=== PATIENT | male | born 1970 | race Caucasian/White ===

== ENCOUNTER 2023-04-02 10:22 | Outpatient (OUT) | payer OTHER, SELFPAY ==
[2023-04-02 11:18] LABS: Basophils Percent Auto 0.6 % (0.2-2.0); Eosinophils Absolute Auto 0.1 10^3/uL (0.0-0.7); Hemoglobin 15.5 g/dL (14.0-18.0); Immature Granulocytes Abs Auto 0.01 10^3/uL (0.00-0.03); Immature Granulocytes Pct Auto 0.2 % (0.0-0.5); Lymphocytes Percent Auto 21.4 % (20.5-60.0); Mean Corpuscular HGB Conc 34.4 g/dL (29.9-35.2); Mean Corpuscular Hemoglobin 33.3 pg (25.9-34.0); Mean Corpuscular Volume 96.6 fL (80.0-94.0); Monocytes Absolute Auto 0.4 10^3/uL (0.3-0.8); Monocytes Percent Auto 7.5 % (1.7-12.0); Neutrophils Absolute Auto 3.3 10^3/uL (1.4-6.5); Neutrophils Percent Auto 69.3 % (43.0-75.0); Platelet Count 223 10^3/uL (150-450); Red Blood Count 4.66 10^6/uL (4.70-6.10); Red Cell Distribution Width 12.5 % (11.0-15.0); White Blood Count 4.8 10^3/uL (4.0-11.0)
[2023-04-02 11:19] LABS: Estimated Average Glucose 100 mg/dL; Glycohemoglobin A1C 5.1 % (4.5-6.2)
[2023-04-02 11:32] LABS: Alanine Aminotransferase 31 U/L (16-63); Albumin Globulin Ratio 1.1; Alkaline Phosphatase 54 U/L (46-116); Anion Gap 10.8; Aspartate Amino Transferase 23 U/L (15-37); BUN Creatinine Ratio 16.7; Bilirubin Total 0.5 mg/dL (0.2-1.0); Calcium 9.2 mg/dL (8.5-10.1); Carbon Dioxide 27.9 mmol/L (21.0-32.0); Chloride 101 mmol/L (98-107); Chol HDL Ratio 4.2; Cholesterol 231 mg/dL (<=200); Estimated GFR (African America >60 (>=60); Estimated GFR (Non-African Ame >60 (>=60); Globulin 3.8 g/dL; Glucose 98 mg/dL (74-106); HDL Cholesterol 55 mg/dL (40-60); Potassium 3.7 mmol/L (3.5-5.1); Sodium 136 mmol/L (136-145); Total Protein 7.8 g/dL (6.4-8.2); Triglycerides 71 mg/dL (<=150); VLDL CHOLESTEROL 14.2 mg/dL
[2023-04-03 04:11] LABS: DHEA-Sulfate 42.9 ug/dL (71.6-375.4); Estradiol 9.5 pg/mL (7.6-42.6); Vitamin B12 278 pg/mL (232-1245)
[2023-04-06 10:08] LABS: Free Testosterone(Direct) 7.1 pg/mL (7.2-24.0); Testosterone 966 ng/dL (264-916)
== END 2023-04-02 10:23 | disposition home or self-care (01) ==
LOC: LAB 10:29
PROVIDERS: PCP Internal Medicine
DX: F41.9 Anxiety disorder, unspecified (principal); R63.5 Abnormal weight gain; R53.83 Other fatigue; R68.82 Decreased libido; M25.50 Pain in unspecified joint; Z12.5 Encounter for screening for malignant neoplasm of prostate; L65.9 Nonscarring hair loss, unspecified; E78.5 Hyperlipidemia, unspecified; R41.3 Other amnesia; E55.9 Vitamin D deficiency, unspecified; R68.89 Other general symptoms and signs
CPT/HCPCS: 36415; 80053; 80061; 82306; 82607; 82627; 82670; 83036; 84402; 84403; 85025

== ENCOUNTER 2024-11-03 18:59 | Emergency (ER) | payer OTHER, SELFPAY ==
[2024-11-03 19:03] VITALS: BP 210/100; PULSE 87; TEMP 36.7; O2SAT 98; BMI 31.2
--- NOTE | 2024-11-03 19:18 | CT_ITS ---
The [address] [address] Patient Name: MAYRA FINN MRN: [id number] date: 1970 Sex: M Assigned Patient Location: ER Current Patient Location: Accession/Order Number: [id number] Exam Date: 11/03/2024 19:42 Report Date: 11/03/2024 21:10 At the request of: REGAN EVANS Procedure: CT abdomen pelvis w con EXAM: CT abdomen pelvis w con REASON FOR EXAM: Male, 54 years, Diarrhea, blood in stool. TECHNIQUE: Computed tomography of the abdomen and pelvis is performed in the axial projection from the lung bases to the pubic symphysis. Sagittal and coronal reconstructed images are performed. Dose reduction techniques were achieved by using automated exposure control and/or adjustment of mA and/or KVP according to patient size and/or use of iterative reconstruction technique. A total of 100 mL Omnipaque 300 IV contrast was given. Study was performed without oral contrast. COMPARISON: None. FINDINGS: Lung bases: The lung bases are clear. There is no pleural effusion. The visualized portions of the heart are unremarkable. Liver: The liver is normal. Gallbladder: The gallbladder is contracted. Spleen: The spleen is normal. Pancreas: The pancreas is normal. Adrenal glands: The adrenal glands are normal bilaterally. Right kidney: The kidney is normal in size. There is no renal calculus or hydronephrosis. Left kidney: The kidney is normal in size. There is no renal calculus or hydronephrosis. Stomach: The stomach is normal. Small bowel: The small bowel is normal. Large bowel: There are colon diverticula, without surrounding inflammatory changes. There appears to be some liquid stool within the rectum, consistent with history of diarrhea. Appendix: The appendix is visualized, and is normal. Aorta: There are mild atherosclerotic calcifications of the abdominal aorta. IVC: The IVC is normal. Retroperitoneum: Normal retroperitoneum. Bladder: The bladder is normal. Pelvic organs: Normal prostate gland. Abdominal wall: Normal abdominal wall. 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 There are degenerative changes within the spine. CT/CT abdomen pelvis w con IMPRESSION: No bowel obstruction or acute renal pathology. Diverticulosis, without acute diverticulitis. Additional findings, as described above. Electronically authenticated by: ILIANA LEVY Date: 11/03/2024 21:10
[2024-11-03 19:20] VITALS: BP 170/94
--- NOTE | 2024-11-03 19:20 | ED.GENADUL1 ---
HPI HPI - General Adult General Chief complaint: Abdominal Pain Stated complaint: BLOOD IN STOOL Time Seen by Provider: 11/03/24 19:18 Source: patient Mode of arrival: walk-in Limitations: no limitations History of Present Illness HPI narrative: Patient is a 54-year-old male who presents to the emergency department for evaluation of multiple episodes of diarrhea for the last several hours associated with bright red blood mixed with his stool. He states he can feel his stomach churning but he does not have any abdominal pain, fevers or vomiting. He states he had similar episode about a month ago which resolved and he states the bleeding was not as severe. He is not anticoagulated. The bleeding is limited to his bowel movements, he has not had any other active bleeding per rectum. Related Data Home Medications ?Medication ?Instructions ?Recorded ?Confirmed clobetasol 0.05 % topical cream 1 applic topical DAILY 11/03/24 11/03/24 Previous Rx's ?Medication ?Instructions ?Recorded hyoscyamine sulfate 0.125 mg 0.125 mg PO Q6H PRN abdominal pain 11/03/24 tablet (Levsin) #12 tabs ondansetron 4 mg disintegrating 4 mg PO Q6H PRN nausea and 11/03/24 tablet vomiting #12 tabs Allergies Allergy/AdvReac Type Severity Reaction Status Date / Time No Known Drug Allergies Allergy Verified 11/03/24 19:06 Opioid HPI Opioid Management Most Recent Opioid Data: No Data to Display Review of Systems ROS Constitutional Denies: fever or chills Ears, nose, mouth, and throat Denies: throat pain or nasal congestion Cardiovascular Denies: chest pain Respiratory Denies: shortness of breath or cough Gastrointestinal Reports: diarrhea and blood in stool; Denies: abdominal pain, nausea or vomiting Musculoskeletal Denies: back pain Integumentary/Breast Denies: rash Neurological Denies: numbness in extremities or weakness in extremities Hematologic/Lymphatic Denies: easy bruising or easy bleeding PFSH PFSH Social History Little interest or pleasure in doing things: not at all Feeling down, depressed, or hopeless: not at all Exam Narrative Exam Narrative: Gen.: Awake, alert, in no distress Head: Normocephalic, atraumatic ENT: Moist mucous membranes Respiratory: No respiratory distress Gastrointestinal: Abdomen is soft, nondistended and nontender to palpation, rectal exam performed with Marivel Etienne RN at bedside throughout the duration of the exam. No active bleeding per rectum, no hemorrhoids noted. Extremities: Moves extremities equally Psych: Normal mood and affect Neuro: No focal neuro deficit Skin: Warm, dry, intact Constitutional Vital Signs, click to edit/add: Last Vital Signs Temp 98.1 F 11/03/24 19:03 Pulse 87 11/03/24 19:03 Resp 16 11/03/24 19:03 BP 170/94 H 11/03/24 19:20 Pulse Ox 98 11/03/24 19:03 Course Vital Signs Vital signs: Vital Signs Temperature 98.1 F 11/03/24 19:03 Pulse Rate 87 11/03/24 19:03 Respiratory Rate 16 11/03/24 19:03 Blood Pressure 210/100 H 11/03/24 19:03 Pulse Oximetry 98 11/03/24 19:03 Temperature 98.1 F 11/03/24 19:03 Pulse Rate 87 11/03/24 19:03 Respiratory Rate 16 11/03/24 19:03 Blood Pressure 170/94 H 11/03/24 19:20 Pulse Oximetry 98 11/03/24 19:03 Medical Decision Making MDM Narrative Medical decision making narrative: Rectal exam with no evidence of active bleeding per rectum, patient did provide a stool specimen which was maroon-colored, sent for a stool culture. Labs show no evidence of infection or anemia. Abdomen is soft and benign with no complaints of abdominal pain in the ER. CT shows the patient has diverticulosis with no acute diverticulitis or other acute abnormalities. He will be discharged home with Zofran and Levsin as needed and encouraged to follow-up with general surgery for colonoscopy as needed. He is hemodynamically stable with no massive hemorrhage per rectum in the ER. Return to the ER if symptoms change or worsen. SHARED APC VISIT, PHYSICIAN ATTESTATION: [id number] I performed a substantive part of the MDM during the patient?s E/M visit. I personally evaluated and examined the patient. I personally made or approved the documented management plan and acknowledge its risk of complications. Medical Records Medical records reviewed: Yes I reviewed the patient's medical records Lab Data Lab results reviewed: Yes I reviewed the patient's lab results Labs: Lab Results 02/04/2011/03/24 11/03/24 Range/Units 19:35 19:55 20:15 WBC 5.5 (4.0-11.0) 10^3/uL RBC 4.69 L (4.70-6.10) 10^6/uL Hgb 15.8 (14.0-18.0) g/dL Hct 44.8 (42.0-54.0) % MCV 95.5 H (80.0-94.0) fL MCH 33.7 (25.9-34.0) pg MCHC 35.3 H (29.9-35.2) g/dL RDW 11.8 (11.0-15.0) % Plt Count 180 (150-450) 10^3/uL MPV 11.3 (9.5-13.5) fL Neut % (Auto) 64.5 (43.0-75.0) % Lymph % (Auto) 25.6 (20.5-60.0) % [place] % (Auto) 7.9 (1.7-12.0) % Eos % (Auto) 1.1 (0.9-7.0) % Baso % (Auto) 0.7 (0.2-2.0) % Neut # (Auto) 3.5 (1.4-6.5) 10^3/uL Lymph # (Auto) 1.4 (1.2-3.8) 10^3/uL [place] # (Auto) 0.4 (0.3-0.8) 10^3/uL Eos # (Auto) 0.1 (0.0-0.7) 10^3/uL Baso # (Auto) 0.0 (0.0-0.1) 10^3/uL Abs Immat Gran (auto) 0.01 (0.00-0.03) 10^3/uL Imm/Tot Granulo (auto) 0.2 (0.0-0.5) % Sodium 138 (136-145) mmol/L Potassium 4.3 (3.5-5.1) mmol/L Chloride 101 (98-107) mmol/L Carbon Dioxide 29.2 (21.0-32.0) mmol/L Anion Gap 12.1 BUN 16.0 (7.0-18.0) mg/dL Creatinine 1.02 (0.70-1.30) mg/dL Est GFR ( Amer) >60 (>=60 mL/min/1.73m^2) Est GFR (Non-Af Amer) >60 (>=60 mL/min/1.73m^2) BUN/Creatinine Ratio 15.7 Glucose 102 (74-106) mg/dL Lactate 0.9 (0.4-2.0) mmol/L Calcium 8.8 (8.5-10.1) mg/dL Total Bilirubin 0.5 (0.2-1.0) mg/dL AST 26 (15-37) U/L ALT 24 (16-63) U/L Alkaline Phosphatase 66 (46-116) U/L Total Protein 7.3 (6.4-8.2) g/dL Albumin 3.5 (3.4-5.0) g/dL Globulin 3.8 g/dL Albumin/Globulin Ratio 0.9 Urine Color Lt. yellow (YELLOW) Urine Clarity Clear (CLEAR) Urine pH 7.0 (5.0-9.0) Ur Specific [place] 1.010 (1.005-1.025) Urine Protein Negative (NEG/TRACE) mg/dL Urine Glucose (UA) Negative (NEGATIVE) mg/dL Urine Ketones Negative (NEGATIVE) mg/dL Urine Occult Blood Negative (NEGATIVE) Urine Nitrite Negative (NEGATIVE) Urine Bilirubin Negative (NEGATIVE) Urine Urobilinogen 0.2 (0.2-1.0) EU/dL Ur Leukocyte Esterase Negative (NEGATIVE) Urine RBC None seen (0-2) #/HPF Urine WBC 0-2 A (NONE SEEN) #/HPF Ur Squamous Epith Cells Rare (NONE/RARE) #/LPF Urine Crystals None seen (None Seen) #/HPF Urine Bacteria Trace A (NONE SEEN) #/HPF Urine Casts None seen (NONE SEEN) #/LPF Urine Mucus None seen (NONE SEEN) Stool Occult Blood Positive A Imaging Data CT scan - abdomen: Attestation: I have reviewed the pertinent imaging results. Radiologist's impression: ITS Impressions Abdomen/Pelvis CT 11/03/24 19:18 IMPRESSION: No bowel obstruction or acute renal pathology. Diverticulosis, without acute diverticulitis. Additional findings, as described above. Electronically authenticated by: ILIANA LEVY Date: 11/03/2024 21:10 Discharge Plan Discharge Chief Complaint: Abdominal Pain Clinical Impression: Rectal bleeding, Diarrhea Patient Disposition: Home, Self-Care Time of Disposition Decision: 21:17 Condition: Good Prescriptions / Home Meds: New hyoscyamine sulfate [Levsin] 0.125 mg tablet 0.125 mg PO Q6H PRN (Reason: abdominal pain) Qty: 12 0RF ondansetron 4 mg tablet,disintegrating 4 mg PO Q6H PRN (Reason: nausea and vomiting) Qty: 12 0RF No Action clobetasol 0.05 % cream 1 applic TOPICAL DAILY Print Language: Khmer Instructions: Rectal Bleeding (ED), Acute Diarrhea (ED) Referrals: Sarwat Way DO [Primary Care Provider] - 1 week Ronny Bates MD [Physician] - As soon as possible Ronny Elaine MD [Physician] - As soon as possible
[2024-11-03 19:42] LABS: Basophils Percent Auto 0.7 % (0.2-2.0); Eosinophils Absolute Auto 0.1 10^3/uL (0.0-0.7); Eosinophils Percent Auto 1.1 % (0.9-7.0); Hematocrit 44.8 % (42.0-54.0); Hemoglobin 15.8 g/dL (14.0-18.0); Immature Granulocytes Abs Auto 0.01 10^3/uL (0.00-0.03); Immature Granulocytes Pct Auto 0.2 % (0.0-0.5); Lymphocytes Absolute Auto 1.4 10^3/uL (1.2-3.8); Lymphocytes Percent Auto 25.6 % (20.5-60.0); Mean Corpuscular HGB Conc 35.3 g/dL (29.9-35.2); Mean Corpuscular Hemoglobin 33.7 pg (25.9-34.0); Mean Corpuscular Volume 95.5 fL (80.0-94.0); Mean Platelet Volume 11.3 fL (9.5-13.5); Monocytes Absolute Auto 0.4 10^3/uL (0.3-0.8); Monocytes Percent Auto 7.9 % (1.7-12.0); Neutrophils Absolute Auto 3.5 10^3/uL (1.4-6.5); Neutrophils Percent Auto 64.5 % (43.0-75.0); Platelet Count 180 10^3/uL (150-450); Red Blood Count 4.69 10^6/uL (4.70-6.10); Red Cell Distribution Width 11.8 % (11.0-15.0); White Blood Count 5.5 10^3/uL (4.0-11.0)
[2024-11-03 20:15] LABS: Alanine Aminotransferase 24 U/L (16-63); Albumin Globulin Ratio 0.9; Albumin Level 3.5 g/dL (3.4-5.0); Alkaline Phosphatase 66 U/L (46-116); Anion Gap 12.1; Aspartate Amino Transferase 26 U/L (15-37); BUN Creatinine Ratio 15.7; Bilirubin Total 0.5 mg/dL (0.2-1.0); Calcium 8.8 mg/dL (8.5-10.1); Carbon Dioxide 29.2 mmol/L (21.0-32.0); Chloride 101 mmol/L (98-107); Estimated GFR (African America >60 (>=60 mL/min/1.73m^2); Estimated GFR (Non-African Ame >60 (>=60 mL/min/1.73m^2); Globulin 3.8 g/dL; Glucose 102 mg/dL (74-106); Potassium 4.3 mmol/L (3.5-5.1); Sodium 138 mmol/L (136-145); Total Protein 7.3 g/dL (6.4-8.2)
[2024-11-03 20:20] LABS: Internal Control Within Normal Limits; Occult Blood Positive
[2024-11-03 20:27] LABS: Bilirubin Urine NEGATIVE (NEGATIVE); Blood Urine NEGATIVE (NEGATIVE); Clarity Urine CLEAR (CLEAR); Color Urine LT. YELLOW (YELLOW); Glucose Urine UA NEGATIVE (NEGATIVE); Ketones Urine NEGATIVE (NEGATIVE); Leukocyte Esterase Urine NEGATIVE (NEGATIVE); Nitrite Urine NEGATIVE (NEGATIVE); Protein Urine NEGATIVE (NEG/TRACE); Urobilinogen Urine 0.2 EU/dL (0.2-1.0)
[2024-11-03 20:37] LABS: Lactate/Lactic Acid 0.9 mmol/L (0.4-2.0)
[2024-11-03 20:43] LABS: Bacteria Urine TRACE #/HPF (NONE SEEN); Cast Seen? NONE SEEN #/LPF (NONE SEEN); Crystals Seen? None Seen #/HPF (None Seen); Mucus Urine NONE SEEN (NONE SEEN); RBC Urine NONE SEEN #/HPF (0-2); Squamous Epithelial Cell Urine RARE #/LPF (NONE/RARE); WBC Urine 0-2 #/HPF (NONE SEEN)
[2024-11-03 21:35] VITALS: BP 154/76; PULSE 77; O2SAT 97
[2024-11-04 08:53] LABS: C. Difficile PCR NEGATIVE
== END 2024-11-03 21:38 | disposition home or self-care (01) ==
PROVIDERS: Physician Assistant; Emergency Provider Emergency Medicine; PCP Internal Medicine
DX: K62.5 Hemorrhage of anus and rectum (principal); R19.7 Diarrhea, unspecified; K57.90 Diverticulosis of intestine, part unspecified, without perforation or abscess without bleeding
CPT/HCPCS: 36415; 74177; 80053; 81001; 83605; 85025; 87045; 87046; 87427; 87493; 99285; G0328; Q9967

== ENCOUNTER 2025-02-02 17:04 | Emergency (ER) | payer OTHER, SELFPAY ==
[2025-02-02 17:05] VITALS: BP 152/88; PULSE 96; TEMP 36.8; O2SAT 98; BMI 34.4
--- OUTSIDE RECORDS SUMMARY | 2025-02-02 17:11 | XMS_ITS | CCD ---
Author Organization [facility] Care Team Providers Care Sample Clerk Name Role Phone Sarwat Way Primary Care Provider Tanner Brown Unavailable [phone] SEAMUS, DR FAM Consulting Unavailable SEAMUS, DR FAM Primary Care Unavailable SEAMUS, DR FAM Admitting Unavailable SEAMUS, DR FAM Referring Unavailable BALL, DR FAM Attending Unavailable SEAMUS, DR FAM Consulting Unavailable SEAMUS, DR FAM Primary Care Unavailable SEAMUS, DR FAM Admitting Unavailable SEAMUS, DR FAM Attending Unavailable TILA, DR KARSTEN San Consulting Unavailable SEAMUS, DR FAM Primary Care Unavailable SEAMUS, DR FAM Admitting Unavailable SEAMUS, DR FAM Attending Unavailable SEAMUS, DR FAM Consulting Unavailable SEAMUS, DR FAM Primary Care Unavailable TRAVIS SOSA Admitting Unavailable TILA, DR KARSTEN San Consulting Unavailable TRAVIS SOSA Attending Unavailable SHEILA, TRAVIS Wallace Consulting Unavailable Seamus, Sarwat Unavailable Shalonda Glaser Unavailable Sarwat Way DO Primary Care Provider Iván Mcnulty MD Attending Provider Iván Mcnulty Attending Unavailable Iván Mcnulty Admitting Unavailable Sarwat Way Primary Care Unavailable Seamus, Sarwat Admitting Unavailable Seamus, Sarwat Attending Unavailable Seamus, Sarwat Primary Care Unavailable Medications Current Medications Medication Drug Class(es) Dates Sig (Normalized) Sig (Original) anastrozole 1 mg oral tablet (2 sources) Aromatase Inhibitor Start: 11-23-2024 take 1 tablet by mouth once Anastrozole 1 mg tablet Active 1 MG PO .week November 23, 2024 1:00am clobetasol propionate 0.5 mg/ml topical cream (17 sources) Corticosteroid Start: 03-21-2024 Clobetasol 0.05 % cream Active 0 .ROUTE .COMPLEX 60 March 21, 2024 8:38am APPLY 1 APPLICATION TOPICALLY TO AFFECTED AREA TWICE A DAY Start: 03-21-2024 End: 03-21-2024 Clobetasol 0.05 % cream Disc ontinued 1 APPLIC TOPICAL Twice daily March 21, 2024 12:00am March 21, 2024 8:38am Start: 02-12-2020 clobetasol (TE MOVATE) 0.05 % cream Apply 1 application to affected area twice daily as needed. APPLY TO AFFECTED AREA 0 02/12/2020 Active Clobetasol Propi jimmie 0.05 % 1 application Externally Twice a day Active Comment on above: Apply 1 application to affected area twice daily as needed. APPLY TO AFFECTED AREA dicyclomine hydrochloride 20 mg oral tablet (1 source) Anticholinergic Start: 2024 take 1 tablet by mouth three times daily Dicyclomine 20 mg tablet Active 20 MG PO Three times daily 90 January 25, 2025 12:00am predniSONE 20 mg oral tablet (1 source) Start: 2023 predniSONE 20 MG 1 tablet Orally tid w/ food x 3 days, then bid w/ food x 3 days then qd w/ food x 3 days for 9 days Oct, Active testosterone cypionate 100 mg/ml injectable solution (3 sources) Androgen Start: 2024 inject 1 mL by intramuscular injection once Testosterone Cypionate 100 mg/mL oil Active 100 MG IM .week November 23, 2024 1:00am FreeTextSi mL Intramuscular; Note: Source Status: Taking; Provider: Seamus Fam ( ) Testosterone Cyp ionate 100 MG/ML 1 mL Intramuscular Active Completed/Discontinued Medications Medication Drug Class(es) Dates Sig (Normalized) Sig (Original) acetaminophen 325 mg / HYDROcodone bitartrate 5 mg oral tablet (2 sources) Opioid Agonist Start: 12-13-2019 take 1 tablet by mouth every six hours as needed for pain, then take 4 tablets by mouth once daily as needed for pain HYDROcodone-aceta minophen (NORCO) 5-325 mg per tablet TAKE 1 TABLET BY MOUTH EVERY 6 HOURS NEEDED FOR PAIN *MAX 4 TABLETS PER DAY* 0 12/13/2019 Active Comment on above: TAKE 1 TABLET BY KAMLESH EVERY 6 HOURS NEEDED FOR PAIN *MAX 4 TABLETS PER DAY* ALPRAZolam 0.5 mg oral tablet (2 sources) Benzodiazepine Start: 02-18-2011 ALPRAZolam (XANAX) 0.5 mg ORAL tablet Take 1 tablet by mouth as needed. 0 02/18/2011 Active Comment on above: Take 1 tablet by kamlesh th as needed. apixaban 5 mg oral tablet (2 sources) Factor Xa Inhibitor Start: 10-12-2020 take 1 tablet by mouth twice daily ELIQUIS 5 mg tab(s) Take 5 mg by mouth twice daily. 0 10/12/2020 Active Comment on above: Take 5 mg by mouth t wice daily. calcium/mag/vitamin D2/Zn/min (XUAN-MAG ZINC II ORAL) (2 sources) take 1 capsule by mouth once daily calcium/mag/vitam in D2/Zn/min (XUAN-MAG ZINC II ORAL) Take 1 capsule by mouth once daily. 0 Active Comment on above: Take 1 capsule by mo uth once daily. celecoxib 200 mg oral capsule (2 sources) Nonsteroidal Anti-inflammatory Drug Start: 12-05-2019 celecoxib (CELEBREX) 200 mg capsule TAKE 1 TABLET BY MOUTH EVENING PRIOR TO OPERATION, 1 TABLET MORNING OF OPERATION, THEN 1 TWICE DAILY 0 12/05/2019 Active Comment on above: TAKE 1 TABLET BY KAMLESH TH EVENING PRIOR TO OPERATION, 1 TABLET MORNING OF OPERATION, THEN 1 TWICE DAILY cholecalciferol, vitamin D3, (VITAMIN D3 ORAL) (2 sources) take 1 capsule by mouth once daily cholecalciferol, vitamin D3, (VITAMIN D3 ORAL) Take 1 capsule by mouth once daily. 0 Active Comment on above: Take 1 capsule by mo uth once daily. COMPOUNDED PRESCRIPTION (2 sources) Start: 10-07-2007 Comment on above: Unknown steroid crea m for psoriasis used up to twice daily FISH OIL-DHA-EPA ORAL (2 sources) take 1 capsule by mouth once daily FISH OIL-DHA-EPA ORAL Take 1 capsule by mouth once daily. 0 Active Comment on above: Take 1 capsule by mo uth once daily. Garlic preparation (2 sources) Non-Standardized Food Allergenic Extract take 1 capsule by mouth once daily GARLIC ORAL Take 1 capsule by mouth once daily. 0 Active Comment on above: Take 1 capsule by mo uth once daily. KELP ORAL (2 sources) take 1 capsule by mouth once daily KELP ORAL Take 1 capsule by mouth once daily. 0 Active Comment on above: Take 1 capsule by mo uth once daily. metoprolol tartrate 25 mg oral tablet (2 sources) beta-Adrenergic Mary Start: 10-12-2020 take 1 tablet by mouth twice daily at mealtime metoprolol tartrate, short acting, (LOPRESSOR) 25 mg tablet Take 25 mg by mouth twice daily with meals. 0 10/12/2020 Active Comment on above: Take 25 mg by mouth twice daily with meals. XVAOQOQF-UDCV-YVE-F A-LUTEIN 18 MG-0.4 MG-250 MCG TAB (2 sources) Start: 10-07-2007 RMAARIMF-VDCU-CNP -FA-LUTEIN 18 MG-0.4 MG-250 MCG TAB Take one(1) tablet daily. 0 10/07/2007 Active Comment on above: Take one(1) tablet d aily. telmisartan 20 mg oral tablet (2 sources) Angiotensin 2 Receptor Mary Start: 11-13-2024 End: 11-23-2024 take 1 tablet by mouth once daily Telmisartan 20 mg tablet Discontinued 20 MG PO Daily November 13, 2024 1:00am November 23, 2024 9:00am triamcinolone acetonide 40 mg/ml injectable suspension (7 sources) Corticosteroid Start: 03-10-2023 Kenalog-40 Feb, 60 mg Start: 11-17-2022 Kenalog-40 Oct, 40 mg Start: 10-07-2007 triamcinolone acetonide(KENALOG-40 INJECTION 40 MG/ML SUSP FOR INJECTION) Approximately every month 0 10/07/2007 Active Comment on above: Approximately every month Problems Active Problems Problem Classification Problem Date Documented Da te Episodic/Chronic Anxiety disorders (2 sources) Generalized anxiety disorder; Translations: [Generalized anxiety disorder] Onset: 03-08-2017 Chronic Biliary tract disease (10 sources) Biliary calculus; Translations: [Calculus of gallbladder without cholecystitis without obstruction] Onset: 09-27-2020 08-13-2024 Episodic Cardiac dysrhythmias (20 sources) Other specified cardiac arrhythmias; Translations: [Paroxysmal tachycardia] Onset: 10-07-2007 10-07-2007 Chronic Disorders of lipid metabolism (13 sources) Pure hypercholesterolemia; Translations: [Familial hypercholesterolemia] Onset: 03-08-2017 08-13-2024 Chronic Essential hypertension (8 sources) Essential hypertension; Translations: [Essential (primary) hypertension] Onset: 01-03-2014 Resolved: 10-15-2020 11-01-2020 Chronic Gastrointestinal hemorrhage (11 sources) Rectal hemorrhage; Translations: [Hemorrhage of anus and rectum] Onset: 12-07-2024 11-11-2024 Episodic Hyperplasia of prostate (4 sources) Benign prostatic hyperplasia; Translations: [Benign prostatic hyperplasia without lower urinary tract symptoms] Chronic Other acquired deformities (3 sources) Acquired spondylolisthesis; Translations: [Spondylolysis, lumbar region] Episodic Other connective tissue disease (3 sources) Weakness of left hand; Translations: [Other symptoms and signs involving the musculoskeletal system] 08-15-2024 Episodic Other diseases of veins and lymphatics (3 sources) Scrotal varices; Translations: [Scrotal varices] Episodic Other diseases of veins and lymphatics (1 source) Varicocele; Translations: [Scrotal varices] Episodic Other fractures (1 source) Fatigue fracture of vertebra, lumbar region, initial encounter for fracture; Translations: [Fatigue fracture of vertebra, lumbar region, initial encounter for fracture] Episodic Other gastrointestinal disorders (1 source) Irritable bowel syndrome; Translations: [Irritable bowel syndrome without diarrhea] 01-25-2025 Chronic Other gastrointestinal disorders (1 source) Irritable bowel syndrome without diarrhea; Translations: [Irritable bowel syndrome] 01-25-2025 Chronic Other gastrointestinal disorders (2 sources) Altered bowel function; Translations: [Other specified symptoms and signs involving the digestive system and abdomen] 11-13-2024 Episodic Other inflammatory condition of skin (3 sources) Plaque psoriasis; 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] Chronic Other inflammatory condition of skin (1 source) Psoriasis vulgaris; 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] Chronic Other inflammatory condition of skin (1 source) Psoriasis; Translations: [Psoriasis, unspecified] Onset: 12-17-2015 Chronic Other nervous system disorders (2 sources) Carpal tunnel syndrome; Translations: [Carpal tunnel syndrome, bilateral upper limbs] 11-13-2024 Chronic Other nervous system disorders (2 sources) Carpal tunnel syndrome, bilateral upper limbs; Translations: [Carpal tunnel syndrome] 11-13-2024 Chronic Other non-traumatic joint disorders (1 source) Pain in right hip Episodic Other nutritional; endocrine; and metabolic disorders (6 sources) Obesity; Translations: [Obesity, unspecified] 11-13-2024 Chronic Other nutritional; endocrine; and metabolic disorders (1 source) Obese class I; Translations: [Body mass index 33.0-33.9, adult] Onset: 03-08-2017 Chronic Other nutritional; endocrine; and metabolic disorders (1 source) Body mass index 30+ - obesity; Translations: [Body mass index 30.0-30.9, adult] Onset: 03-08-2017 Chronic Other nutritional; endocrine; and metabolic disorders (1 source) Simple obesity ; Translations: [Other obesity due to excess calories] Chronic Other nutritional; endocrine; and metabolic disorders (2 sources) Obesity, unspecified; Translations: [Obesity, unspecified] 11-13-2024 Chronic Other nutritional; endocrine; and metabolic disorders (3 sources) Obese class I; Translations: [Obesity, Class I, BMI 30-34.9] Onset: 03-13-2020 03-13-2020 Other screening for suspected conditions (not mental disorders or infectious disease) (10 sources) Encounter for screening for malignant neoplasm of prostate; Translations: [Raised prostate specific antigen] Onset: 04-08-2022 08-13-2024 Episodic Comment on above: PSA: 0.74 - 03/2022, PSA: 0.74 - 03/2022, 1.4 - 07/2024 Other upper respiratory disease (10 sources) Allergic rhinitis due to pollen; Translations: [Allergic rhinitis due to pollen] 04-13-2024 Chronic Other upper respiratory disease (2 sources) Allergic rhinitis due to pollen Chronic Other upper respiratory disease (1 source) Allergic rhinitis; Translations: [Allergic rhinitis, unspecified] Onset: 05-27-2015 Chronic Other upper respiratory disease (1 source) Seasonal allergic rhinitis; Translations: [Other seasonal allergic rhinitis] Onset: 03-01-2018 Chronic Spondylosis; intervertebral disc disorders; other back problems (10 sources) Lumbar spondylosis with myelopathy; Translations: [Other spondylosis with myelopathy, lumbar region] 08-13-2024 Chronic Spondylosis; intervertebral disc disorders; other back problems (3 sources) Low back pain; Translations: [Low back pain, unspecified] Episodic Viral infection (6 sources) Other specified viral infection; Translations: [Herpes zoster with complication] Onset: 10-16-2020 11-01-2020 Episodic Past or Other Problems Problem Classification Problem Date Documented Date Episodic/Chronic Abdominal pain (1 source) Right upper quadrant pain; Translations: [Right upper quadrant pain] Resolved: 10-15-2020 Episodic Cardiac dysrhythmias (2 sources) Palpitations; Translations: [Palpitations] Onset: 03-13-2020 03-13-2020 Episodic E Codes: Struck by; against (1 source) Striking against or struck by other objects, initial encounter; Translations: [STRIKING AGNST/STRUCK OTH OBJ INIT] Onset: 09-23-2021 Episodic Immunizations and screening for infectious disease (4 sources) Contact with and (suspected) exposure to other viral communicable diseases; Translations: [CONTCT EXPS OTH VIRL COMMUNICABL DZ] Onset: 05-26-2021 Episodic Intestinal infection (1 source) Viral infection of the digestive tract; Translations: [Viral intestinal infection, unspecified] Resolved: 10-15-2020 Episodic Other connective tissue disease (3 sources) Pain in left lower leg; Translations: [PAIN IN LEFT LOWER LEG] Onset: 09-22-2021 Episodic Other connective tissue disease (2 sources) Other symptoms and signs involving the musculoskeletal system; Translations: [Muscle weakness (generalized)] Onset: 09-06-2024 08-15-2024 Episodic Other lower respiratory disease (1 source) Cough; Translations: [Cough] Onset: 01-03-2014 Episodic Other male genital disorders (4 sources) Other specified disorders of the male genital organs; Translations: [OTHER SPEC D/O MALE GENITAL ORGANS] Onset: 07-14-2021 Episodic Other male genital disorders (1 source) Disorder of male genital organ; Translations: [Other specified disorders of the male genital organs] Resolved: 04-07-2022 Episodic Other non-traumatic joint disorders (1 source) Pain in right hip joint; Translations: [Pain in right hip] Onset: 10-24-2018 Episodic Skin and subcutaneous tissue infections (1 source) Boil of lower limb; Translations: [Carbuncle and furuncle of leg, except foot] Onset: 10-01-2015 Episodic Sprains and strains (1 source) Neck sprain; Translations: [Neck sprain and strain] Onset: 11-27-2014 Episodic Superficial injury; contusion (1 source) Contusion of left lower leg, initial encounter; Translations: [CONTUSION LEFT LOWER LEG INITIAL] Onset: 09-23-2021 Episodic Unclassified (3 sources) Low back pain with radiation; Translations: [Low back pain with radiation] Varicose veins of lower extremity (2 sources) Varicose veins of lower extremity; Translations: [Varicose veins of lower extremities with other complications] Onset: 04-24-2011 04-24-2011 Episodic Viral infection (1 source) Disease caused by 2019-nCoV; Translations: [COVID-19] Resolved: 04-07-2022 Results Test Name Value Interpretation Reference Range Facility Amphetamine Screen Ql (U)Ord ered By: Iván Mcnulty on 12-07-2024 Amphetamines Ql (U) Amphetamines screen Negativ e [facility] Barbiturates [Presence] in U rine by Screen methodOrdered By: Iván Mcnulty on 12-07-2024 Barbiturates Screen Ql (U) Barbiturates [Presence] in Urine by Screen method Negative [facility] Benzodiazepines Screen Ql (U )Ordered By: Iván Mcnulty on 12-07-2024 Benzodiazepines Ql (U) Benzodiazepines [Presence] in Urine by Screen method Negative [facility] Benzoylecgonine [Presence] i n Urine by Screen methodOrdered By: Iván Mcnulty on 12-07-2024 Benzoylecgonine Screen Ql (U) Benzoylecgonine [Presence] in Urine by Screen method Negative [facility] Cannabinoids [Presence] in U rine by Screen methodOrdered By: Iván Mcnulty on 12-07-2024 Cannabinoids Screen Ql (U) Cannabinoids [Presence] in Urine by Screen method High Negative [facility] Comment on above: These are unconfirme d results and should not be used for legal purposes. Drug Cut-Off Concentration: AMPH 1000 ng/mL VIK 200 ng/mL PAULA 200 ng/mL COCM 300 ng/mL OP 300 ng/mL PCP 25 ng/mL THC 20 ng/mL Drug Screen,Urineon 12-08-19 Amphetamine Screen,Urine Negative Normal Negative [facility] Comment on above: Performed By: #### U RDS #### [address] Barbiturate Screen,Urine Negative Normal Negative [facility] Comment on above: Performed By: #### U RDS #### [address] Benzodiazepines Screen,Urine Negative Normal Negative [facility] Comment on above: Performed By: #### U RDS #### [address] Cannabinoid Screen,Urine Positive High Negative [facility] Comment on above: Result Comment: Thes e are unconfirmed results and should not be used for legal purposes. Drug Cut-Off Concentration: AMPH 1000 ng/mL VIK 200 ng/mL PAULA 200 ng/mL COCM 300 ng/mL OP 300 ng/mL PCP 25 ng/mL THC 20 ng/mL PERFORMED BY: [place] [address] PATHOLOGIST [employer] PEGGY CABAN M.D. Performed By: #### U RDS #### [address] Cocaine Screen,Urine Negative Normal Negative [facility] Comment on above: Performed By: #### U RDS #### [address] Opiate Screen,Urine Negative Normal Negative [facility] Comment on above: Performed By: #### U RDS #### [address] Phencyclidine Screen,Urine Negative Normal Negative [facility] Comment on above: Performed By: #### U RDS #### [address] Opiates [Presence] in Urine by Screen methodOrdered By: Iván Mcnulty on 12-07-2024 Opiates Screen Ql (U) Opiates [Presence] in Urine by Screen method Negative [facility] Phencyclidine Screen Ql (U)O rdered By: Iván Mcnulty on 12-07-2024 Phencyclidine Ql (U) Phencyclidine [Presence] in Urine by Screen method Negative [facility] Basophils Auto (Bld) [#/Vol] on 11-03-2024 Basophils (Bld) [#/Vol] Automated basophil count 0.0-0.1 [facility] Basophils/100 WBC Auto (Bld) on 11-03-2024 Basophils/100 WBC (Bld) Automated basophil % 0.2-2.0 [facility] Eosinophils/100 WBC Auto (Bl d)on 11-03-2024 Eosinophils/100 WBC (Bld) Automated eosinophil % 0.9-7.0 [facility] Erythrocyte distribution wid th Auto (RBC) [Ratio]on 11-03-2024 Erythrocyte distribution width (RBC) [Ratio] Erythrocyte distribution width [Ratio] by Automated count 11.0-15.0 [facility] Estimated glomerular filtrat ion rate (GFR) non- Americanon 11-03-2024 GFR/1.73 sq M.predicted among non-blacks MDRD (S/P/Bld) [Vol rate/Area] Estimated glomerular filtration rate (GFR) non- >=60 mL/min/1.73m 2 [facility] Globulin Calc (S) [Mass/Vol] on 11-03-2024 Globulin (S) [Mass/Vol] Serum globulin measurement by calculation (mass/volume) [facility] Hematocrit Auto (Bld) [Volum e fraction]on 11-03-2024 Hematocrit (Bld) [Volume fraction] Hematocrit [Volume Fraction] of Blood by Automated count 42.0-54.0 [facility] Hemoglobin [Mass/volume] in Bloodon 11-03-2024 Hemoglobin (Bld) [Mass/Vol] Hemoglobin [Mass/volume] in Blood 14.0-18.0 [facility] Hemoglobin.gastrointestinal [Presence] in Stoolon 11-03-2024 Hemoglobin.gastroint estinal Ql (Stl) Hemoglobin.gastrointes tinal [Presence] in Stool Abnormal [facility] Laboratory - Chemistry and C hemistry - challengeon 11-03-2024 Bilirubin Ql (U) Negative NEGATIVE [facility] Glucose (U) [Mass/Vol] Negative NEGATIVE [facility] Ketones Ql (U) Negative NEGATIVE [facility] pH (U) 7.0 [pH] 5.0-9.0 [facility] Specific gravity (U) [Rel density] 1.010 1.005-1.025 [facility] Urobilinogen Qn (U) 0.2 {Laura'U}/dL 0.2-1.0 [facility] Lactate [Moles/Vol] 0.9 mmol/L 0.4-2.0 [facility] Albumin [Mass/Vol] 3.5 g/dL 3.4-5.0 [facility] ALP [Catalytic activity/Vol] 66 U/L 46-116 [facility] ALT [Catalytic activity/Vol] 24 U/L 16-63 [facility] AST [Catalytic activity/Vol] 26 U/L 15-37 [facility] Bilirubin [Mass/Vol] 0.5 mg/dL 0.2-1.0 [facility] Calcium [Mass/Vol] 8.8 mg/dL 8.5-10.1 [facility] Chloride [Moles/Vol] 101 mmol/L 98-107 [facility] CO2 [Moles/Vol] 29.2 mmol/L 21.0-32.0 [facility] Creatinine [Mass/Vol] 1.02 mg/dL 0.70-1.30 [facility] GFR/1.73 sq M.predicted MDRD (S/P/Bld) [Vol rate/Area] mL/min/{1.73_m2} >=60 mL/min/1.73m 2 [facility] Glucose [Mass/Vol] 102 mg/dL 74-106 [facility] Potassium [Moles/Vol] 4.3 mmol/L 3.5-5.1 [facility] Protein [Mass/Vol] 7.3 g/dL 6.4-8.2 [facility] Sodium [Moles/Vol] 138 mmol/L 136-145 [facility] Urea nitrogen [Mass/Vol] 16.0 mg/dL 7.0-18.0 [facility] Urea nitrogen/Creatinine [Mass ratio] 15.7 mg/mg [facility] Laboratory - Hematology and Cell countson 11-03-2024 Immature granulocytes/100 WBC (Bld) 0.2 % 0.0-0.5 [facility] Laboratory - Specimen inform ationon 11-03-2024 Appearance (U) CLEAR CLEAR [facility] Color (U) LT. YELLOW YELLOW [facility] Laboratory - Urinalysison Leukocyte esterase Test strip Ql (U) Negative NEGATIVE [facility] Mucus Ql (Urine sed) NONE SEEN NONE SEEN [facility] Nitrite Ql (U) Negative NEGATIVE [facility] Protein Ql (U) Negative NEG/TRACE [facility] Leukocytes [#/volume] correc alessia for nucleated erythrocytes in Blood by Automated counon 11-03-2024 WBC corrected for nucl RBC Auto (Bld) [#/Vol] Leukocytes [#/volume] corrected for nucleated erythrocytes in Blood by Automated coun 4.0-11.0 [facility] Lymphocytes Auto (Bld) [#/Vo l]on 11-03-2024 Lymphocytes (Bld) [#/Vol] Lymphocytes [#/volume] in Blood by Automated count 1.2-3.8 [facility] Lymphocytes/100 WBC Auto (Bl d)on 11-03-2024 Lymphocytes/100 WBC (Bld) Lymphocytes/100 leukocytes in Blood by Automated count 20.5-60.0 [facility] MCH Auto (RBC) [Entitic mass ]on 11-03-2024 MCH (RBC) [Entitic mass] MCH [Entitic mass] by Automated count 25.9-34.0 [facility] MCHC Auto (RBC) [Mass/Vol]on 11-03-2024 MCHC (RBC) [Mass/Vol] MCHC [Mass/volume] by Automated count High 29.9-35.2 [facility] MCV Auto (RBC) [Entitic vol] on 11-03-2024 MCV (RBC) [Entitic vol] MCV [Entitic volume] by Automated count High 80.0-94.0 [facility] Monocytes Auto (Bld) [#/Vol] on 11-03-2024 Monocytes (Bld) [#/Vol] Automated blood monocyte count 0.3-0.8 [facility] Monocytes/100 WBC Auto (Bld) on 11-03-2024 Monocytes/100 WBC (Bld) Automated monocyte % 1.7-12.0 [facility] Neutrophils Auto (Bld) [#/Vo l]on 11-03-2024 Neutrophils (Bld) [#/Vol] Neutrophils [#/volume] in Blood by Automated count 1.4-6.5 [facility] Neutrophils/100 WBC Auto (Bl d)on 11-03-2024 Neutrophils/100 WBC (Bld) Automated neutrophil % 43.0-75.0 [facility] No Panel Informationon 11-03 Urine Bacteria TRACE #/HPF Abnormal NONE SEEN [facility] Urine Occult Blood Negative NEGATIVE [facility] Urine Other Casts NONE SEEN #/LPF [facility] Other Crystals None Seen #/HPF None Seen [facility] Urine RBC NONE SEEN #/HPF 0-2 [facility] Urine Squamous Epithelial Cells RARE #/LPF NONE/RARE [facility] Urine WBC 0-2 #/HPF Abnormal NONE SEEN [facility] Eosinophils # (Auto) 0.1 10 3/uL 0.0-0.7 [facility] Immature Granulocyte # (Auto) 0.01 10 3/uL 0.00-0.03 [facility] Clostridium difficile (PCR)(LAB) Negative [facility] Platelet mean volume Auto (B ld) [Entitic vol]on 11-03-2024 Platelet mean volume (Bld) [Entitic vol] Platelet mean volume [Entitic volume] in Blood by Automated count 9.5-13.5 [facility] Platelets Auto (Bld) [#/Vol] on 11-03-2024 Platelets (Bld) [#/Vol] Platelets [#/volume] in Blood by Automated count 150-450 [facility] RBC Auto (Bld) [#/Vol]on RBC (Bld) [#/Vol] Erythrocytes [#/volume] in Blood by Automated count Low 4.70-6.10 [facility] Serum or plasma albumin/glob ulin mass ratioon 11-03-2024 Albumin/Globulin [Mass ratio] Serum or plasma albumin/globulin mass ratio [facility] Serum or plasma anion gap de terminationon 11-03-2024 Anion gap [Moles/Vol] Serum or plasma anion gap determination [facility] CBC AUTO DIFFon 04-07-2022 BASO # 0.0 103/ul Normal 0.0-0.1 [facility] Comment on above: Performed By: #### C BC #### [facility] [address] [place] [address] Dr. Marlee Faria Basophils/100 WBC (Bld) 0.5 % Normal 0.2-2.0 [facility] Comment on above: Performed By: #### C BC #### [facility] [address] [place] [address] Dr. Marlee Faria EO # 0.1 103/ul Normal 0.0-0.7 [facility] Comment on above: Performed By: #### C BC #### [facility] [address] [place] [address] Dr. Marlee Faria Eosinophils/100 WBC (Bld) 1.4 % Normal 0.9-7.0 [facility] Comment on above: Performed By: #### C BC #### [facility] [address] [place] [address] Dr. Marlee Faria Erythrocyte distribution width (RBC) [Ratio] 11.9 % Normal 11.0-15.0 [facility] Comment on above: Performed By: #### C BC #### [facility] [address] [place] [address] Dr. Marlee Faria Hematocrit (Bld) [Volume fraction] 43.3 % Normal 42.0-54.0 [facility] Comment on above: Performed By: #### C BC #### [facility] [address] [place] [address] Dr. Marlee Faria Hemoglobin (Bld) [Mass/Vol] 14.9 g/dL Normal 14.0-18.0 [facility] Comment on above: Performed By: #### C BC #### [facility] [address] [place] [address] Dr. Marlee Faria IG # 0.01 10e3/ul Normal 0.00-0.03 [facility] Comment on above: Performed By: #### C BC #### [facility] [address] [place] [address] Dr. Marlee Faria IG % 0.2 % Normal 0.0-0.5 [facility] Comment on above: Performed By: #### C BC #### [facility] [address] [place] [address] Dr. Marlee Faria LYMPH # 1.2 103/ul Normal 1.2-3.8 [facility] Comment on above: Performed By: #### C BC #### [facility] [address] [place] [address] Dr. Marlee Faria Lymphocytes/100 WBC (Bld) 28.3 % Normal 20.5-60.0 [facility] Comment on above: Performed By: #### C BC #### [facility] [address] [place] [address] Dr. Marlee Faria MANUAL DIFF REQ NO Normal [facility] Comment on above: Performed By: #### C BC #### [facility] [address] [place] [address] Dr. Marlee Faria MCH (RBC) [Entitic mass] 33.0 pg Normal 25.9-34.0 [facility] Comment on above: Performed By: #### C BC #### [facility] [address] [place] [address] Dr. Marlee Faria MCHC (RBC) [Mass/Vol] 34.4 g/dL Normal 29.9-35.2 [facility] Comment on above: Performed By: #### C BC #### [facility] [address] [place] [address] Dr. Marlee Faria MCV (RBC) [Entitic vol] 96.0 fL Critically high 80.0-94.0 [facility] Comment on above: Performed By: #### C BC #### [facility] [address] [place] [address] Dr. Marlee Faria MONO # 0.4 103/ul Normal 0.3-0.8 [facility] Comment on above: Performed By: #### C BC #### [facility] [address] [place] [address] Dr. Marlee Faria Monocytes/100 WBC (Bld) 9.4 % Normal 1.7-12.0 [facility] Comment on above: Performed By: #### C BC #### [facility] [address] [address] [address] Marlee Faria NEUT # 2.5 103/ul Normal 1.4-6.5 [facility] Comment on above: Performed By: #### C BC #### [facility] [address] [address] [address] Marlee Faria Neutrophils/100 WBC (Bld) 60.2 % Normal 43.0-75.0 [facility] Comment on above: Performed By: #### C BC #### [facility] [address] [address] [address] Marlee Faria Platelet mean volume (Bld) [Entitic vol] 10.3 fL Normal 9.5-13.5 [facility] Comment on above: Performed By: #### C BC #### [facility] [address] [place] [address] Dr. Marlee Faria PLT 205 103/ul Normal 150-450 [facility] Comment on above: Performed By: #### C BC #### [facility] [address] [address] [address] Marlee Faria RBC 4.51 106/ul Critically low 4.70-6.10 [facility] Comment on above: Performed By: #### C BC #### [facility] [address] [place] [address] Dr. Marlee Faria WBC 4.2 103/ul Normal 4.0-11.0 [facility] Comment on above: Performed By: #### C BC #### [facility] [address] [place] [address] Dr. Marlee Faria LIPID PROFILEon 04-07-2022 CHOL-HDL RATIO NORM SEE BELOW Normal [facility] Comment on above: Result Comment: 3.3 - 4.4 LOW RISK 4.4 - 7.1 AVERAGE RISK 7.1 - 11.0 MODERATE RISK >11.0 HIGH RISK Performed By: #### L IPID, CMP #### [facility] [address] [place] [address] Dr. Marlee Faria Cholesterol [Mass/Vol] 232 mg/dL Critically high <=200 [facility] Comment on above: Performed By: #### L IPID, CMP #### [facility] [address] [address] [address] Marlee Faria Cholesterol in HDL [Mass/Vol] 46 mg/dL Normal 40-60 [facility] Comment on above: Performed By: #### L IPID, CMP #### [facility] [address] [address] [address] Marlee Faria Cholesterol in LDL [Mass/Vol] 168.8 mg/dL Normal [facility] Comment on above: Performed By: #### L IPID, CMP #### [facility] [address] [address] [address] Marlee Faria Cholesterol.total/Ch olesterol in HDL [Mass ratio] 5.0 {ratio} Normal [facility] Comment on above: Performed By: #### L IPID, CMP #### [facility] [address] [address] [address] Marlee Faria HDL NORMAL > or = 60 mg/dl - LO W CARDIOVASCULAR RISK <40 mg/dl - HIGH CARDIOVASCULAR RISK Normal [facility] Comment on above: Performed By: #### L IPID, CMP #### [facility] [address] [address] [address] Marlee Faria LDL CALC NORMAL SEE BELOW Normal [facility] Comment on above: Result Comment: <100 mg/dl OPTIMAL 100 - 129 mg/dl NEAR OR ABOVE OPTIMAL 130 - 159 mg/dl BORDERLINE HIGH 160 - 189 mg/dl HIGH >190 mg/dl VERY HIGH Performed By: #### L IPID, CMP #### [facility] [address] [address] [address] Marlee Faria Triglyceride [Mass/Vol] 86 mg/dL Normal <=150 [facility] Comment on above: Performed By: #### L IPID, CMP #### [facility] [address] [address] [address] Marlee Faria VLDL CALC 17.2 mg/dL Normal [facility] Comment on above: Performed By: #### L IPID, CMP #### [facility] [address] [address] [address] Marlee Faria PROF 14(COMP METB)on 022 Albumin [Mass/Vol] 3.7 g/dL Normal 3.4-5.0 [facility] Comment on above: Performed By: #### L IPID, CMP #### [facility] [address] [place] [address] Dr. Marlee Faria Albumin/Globulin [Mass ratio] 0.8 {ratio} Normal [facility] Comment on above: Performed By: #### L IPID, CMP #### [facility] [address] [place] [address] Dr. Marlee Faria ALP [Catalytic activity/Vol] 58 U/L Normal 46-116 [facility] Comment on above: Performed By: #### L IPID, CMP #### [facility] [address] [place] [address] Dr. Marlee Faria ALT [Catalytic activity/Vol] 32 U/L Normal 16-63 [facility] Comment on above: Performed By: #### L IPID, CMP #### [facility] [address] [place] [address] Dr. Marlee Faria Anion gap [Moles/Vol] 12.1 mmol/L Normal [facility] Comment on above: Performed By: #### L IPID, CMP #### [facility] [address] [place] [address] Dr. Marlee Faria AST [Catalytic activity/Vol] 23 U/L Normal 15-37 [facility] Comment on above: Performed By: #### L IPID, CMP #### [facility] [address] [place] [address] Dr. Marlee Faria Bilirubin [Mass/Vol] 0.5 mg/dL Normal 0.2-1.0 [facility] Comment on above: Performed By: #### L IPID, CMP #### [facility] [address] [place] [address] Dr. Marlee Faria Calcium [Mass/Vol] 9.0 mg/dL Normal 8.5-10.1 [facility] Comment on above: Performed By: #### L IPID, CMP #### [facility] [address] [place] [address] Dr. Marlee Faria Chloride [Moles/Vol] 104 mmol/L Normal 98-107 [facility] Comment on above: Performed By: #### L IPID, CMP #### [facility] [address] [place] [address] Dr. Marlee Faria CO2 [Moles/Vol] 27.1 mmol/L Normal 21.0-32.0 [facility] Comment on above: Performed By: #### L IPID, CMP #### [facility] [address] [place] [address] Dr. Marlee Faria Creatinine [Mass/Vol] 0.86 mg/dL Normal 0.70-1.30 [facility] Comment on above: Performed By: #### L IPID, CMP #### [facility] [address] [place] [address] Dr. Marlee Faria EGFR-AF ZIMBABWEAN >60 Normal >=60 [facility] Comment on above: Performed By: #### L IPID, CMP #### [facility] [address] [place] [address] Dr. Marlee Faria EGFR-NON AF ZIMBABWEAN >60 Normal >=60 [facility] Comment on above: Performed By: #### L IPID, CMP #### [facility] [address] [place] [address] Dr. Marlee Faria Globulin (S) [Mass/Vol] 4.5 g/dL Normal [facility] Comment on above: Performed By: #### L IPID, CMP #### [facility] [address] [place] [address] Dr. Marlee Faria Glucose [Mass/Vol] 94 mg/dL Normal 74-106 [facility] Comment on above: Performed By: #### L IPID, CMP #### [facility] [address] [place] [address] Dr. Marlee Faria Potassium [Moles/Vol] 4.2 mmol/L Normal 3.5-5.1 [facility] Comment on above: Performed By: #### L IPID, CMP #### [facility] [address] [place] [address] Dr. Marlee Faria Protein [Mass/Vol] 8.2 g/dL Normal 6.4-8.2 [facility] Comment on above: Performed By: #### L IPID, CMP #### [facility] [address] [place] [address] Dr. Marlee Faria Sodium [Moles/Vol] 139 mmol/L Normal 136-145 [facility] Comment on above: Performed By: #### L IPID, CMP #### [facility] [address] [place] [address] Dr. Marlee Faria Urea nitrogen [Mass/Vol] 16.0 mg/dL Normal 7.0-18.0 [facility] Comment on above: Performed By: #### L IPID, CMP #### [facility] [address] [place] [address] Dr. Marlee Faria Urea nitrogen/Creatinine [Mass ratio] 18.6 mg/mg Normal [facility] Comment on above: Performed By: #### L IPID, CMP #### [facility] [address] [place] [address] Dr. Marlee Faria US SCROTUMon 07-14-2021 US SCROTUM EXAMINATION: US SCROTUM HISTORY: Disorder of male genital organ COMPARISON: No relevant comparison available. TECHNIQUE: High-resolution sonographic imaging of the scrotum and contents was performed. FINDINGS: The right testicle is normal in size, contour and homogeneous echotexture measuring 5.4 x 2.2 x 3.5 cm. No focal intratesticular mass. Normal color and Doppler flow. PSV/EDV: 3.9/1.5 cm/s. Normal resistive index of 0.60. The right epididymis is normal in appearance measuring 10 mm. The left testicle is normal in size, contour and homogeneous echotexture measuring 4.8 x 2.4 x 3.5 cm. No focal intratesticular mass. Normal color and Doppler flow. PSV/EDV: 3.6/2.0 cm/s. The left epididymis is normal in appearance measuring 8.3 mm. There is a very small right hydrocele. Small right varicocele. Moderate left varicocele IMPRESSION: No evidence of testicular torsion Small right and moderate left varicoceles Very small right hydrocele Electronically authenticated by: KARSTEN ADORNO Date: 2021-07-14 17:37 Normal The [facility] Covid-19 PCR ([facility])on 04-29 SARS-CoV-2 (COVID-19) RNA ABHI+probe Ql (Unsp spec) Not detected Normal NOT DETECTED The [facility] Comment on above: Result Comment: This test is not yet approved or cleared by the [place] FDA. When there are no FDA-approved or cleared tests available, and other criteria are met, FDA can make tests available under an emergency access mechanism called an Emergency Use Authorization (EUA). The EUA for this test is supported by the Insulating Machine Operator of Health and Human Service's (HHS's) declaration that circumstances exist to justify the emergency use of in vitro diagnostics for the detection and/or diagnosis of the virus that causes COVID-19. This EUA will remain in effect (meaning this test can be used) for the duration of the COVID-19 declaration justifying emergency of IVDs, unless it is terminated or revoked by FDA (after which the test may no longer be used). When diagnostic testing is negative, the possibility of a false negative should be considered in the context of a patient's recent exposures and the presence of clinical signs and symptoms consistent with SARS-CoV-2. Performed By: #### C VDTB, CVDAGS #### [facility] [address] [place] [address] Mauro Chau SYMPTOMATIC COVID-19 ANTIGEN on 05-26-2021 EUA Statement SEE BELOW Normal [facility] Comment on above: Result Comment: This test has not been FDA cleared or approved, but has been authorized by the FDA under an Emergency Use Authorization (EUA) for use by authorized laboratories certified under CLIA that meet the requirements to perform moderate or high complexity testing. This test has been authorized only for the detection of proteins from SARS-CoV-2, not for any other viruses or pathogens. The emergency use of this test is authorized for the duration of the declaration that circumstances exist justifying the authorization of emergency use of in vitro diagnostic tests for detection and/or diagnosis of Covid-19 under section 564(b)(1) of the Act, 21 U.S.C. 360bbb-3(b)(1), unless the declaration is terminated or authorization is revoked sooner. Performed By: #### C VDTBH, CVDAGS #### [facility] [address] [address] Mauro Chau SARS-CoV-2 (COVID-19) RNA ABHI+probe Ql (Unsp spec) Negative Normal NEGATIVE The [facility] Comment on above: Result Comment: CONF IRMATION BY PCR PENDING PER CDC GUIDELINES/ SYMPTOMATIC PATIENT. Performed By: #### C VDTBH, CVDAGS #### [facility] [address] [address] Mauro Chau Rosalia 11-01-2020 CNPN Telephone (AGCARDPOB ) MAYRA RHOADES ([id number]) 1970 M Date Time Provider Department 11/01/20 TANNER BROWN AGCNOA During your visit today, we recorded the following information about you: Tanner Brown MD 11/01/2020 10:55 PM Signed Please let Mr. Rhoades know that the echocardiogram testing showed no significant abnormalities, looked good. Tanner Brown MD November 01, 2020 10:54 PM Skylar Pierce RN 11/04/2020 8:47 AM Signed Patient notified of test results, he verbalized understanding. Skylar Pierce RN Allergies As of Date: 11/01/2020 (No Known Allergies) Date Reviewed: 03/13/2020 Reviewed by: Hayley Crisostomo - Fully Assessed Reason for Visit: Results [95] Prescriptions as of 11/01/2020 Sig: ELIQUIS 5 MG TABLET Take 5 mg by mouth twice beth* METOPROLOL TARTRATE 25 MG TAB* Take 25 mg by mouth twice radha* CLOBETASOL 0.05 % TOPICAL CRE* Apply 1 application to affect* FISH OIL-DHA-EPA ORAL Take 1 capsule by mouth once * GARLIC ORAL Take 1 capsule by mouth once * KELP ORAL Take 1 capsule by mouth once * VITAMIN D3 ORAL Take 1 capsule by mouth once * XUAN-MAG ZINC II ORAL Take 1 capsule by mouth once * CELECOXIB 200 MG CAPSULE TAKE 1 TABLET BY MOUTH EVENIN* HYDROCODONE 5 MG-ACETAMINOPHE* TAKE 1 TABLET BY MOUTH EVERY * ALPRAZOLAM 0.5 MG TABLET Take 1 tablet by mouth as nee* KENALOG-40 INJECTION 40 MG/ML* Approximately every month COMPOUNDED PRESCRIPTION Unknown steroid cream for pso* [id number] UTEIN 1* Take one(1) tablet daily. Problem List As Of Date 11/01/2020 Noted Resolved PREMATURE VENTRICULAR CONTRACTIONS (PVCs): symp*10/07/2007 PAROXYSMAL SUPRAVENTRICULAR TACHYCARDIA: adenos*10/07/2007 Varicose veins of lower extremities with other *04/24/2011 Obesity, Class I, BMI 30-34.9 [E66.9] 03/13/2020 Premature ventricular contractions (PVCs) (VPCs* Palpitations [R00.2] 03/13/2020 Essential (primary) hypertension [I10] 10/16/2020 COVID-19 [U07.1] 10/16/2020 Encounter Status:Closed by TANNER BROWN MD on 11/01/20 [facility] Otheron 11-01-2020 [facility] CNCOon 03-27-[address] [facility] CNPDenise 03-27-2020 CNPN Telephone (AGCARDPOB ) MAYRA RHOADES ([id number]) 1970 M Date Time Provider Department 03/27/20 TANNER BROWN AGCARDPARTH During your visit today, we recorded the following information about you: Fern Calderon 03/27/2020 9:45 AM Signed Centralized scheduling attempted to call patient twice to schedule his Echo. He did not answer or return any calls. I am sending him a letter to call in and schedule. Allergies As of Date: 03/27/2020 (No Known Allergies) Date Reviewed: 03/13/2020 [facility]ed by: [facility] Kranthi - Fully Assessed Reason for Visit: Preparations For Procedures [899] Cmt: Echo Prescriptions as of 03/27/2020 Sig: CLOBETASOL 0.05 % TOPICAL CRE* Apply 1 application to affect* FISH OIL-DHA-EPA ORAL Take 1 capsule by mouth once * GARLIC ORAL Take 1 capsule by mouth once * KELP ORAL Take 1 capsule by mouth once * VITAMIN D3 ORAL Take 1 capsule by mouth once * XUAN-MAG ZINC II ORAL Take 1 capsule by mouth once * CELECOXIB 200 MG CAPSULE TAKE 1 TABLET BY MOUTH EVENIN* HYDROCODONE 5 MG-ACETAMINOPHE* TAKE 1 TABLET BY MOUTH EVERY * ALPRAZOLAM 0.5 MG TABLET Take 1 tablet by mouth as nee* KENALOG-40 INJECTION 40 MG/ML* Approximately every month COMPOUNDED PRESCRIPTION Unknown steroid cream for pso* [id number] UTEIN 1* Take one(1) tablet daily. Problem List As Of Date 03/27/2020 Noted Resolved PREMATURE VENTRICULAR CONTRACTIONS (PVCs): symp*10/07/2007 PAROXYSMAL SUPRAVENTRICULAR TACHYCARDIA: adenos*10/07/2007 Varicose veins of lower extremities with other *04/24/2011 Obesity, Class I, BMI 30-34.9 [E66.9] 03/13/2020 Premature ventricular contractions (PVCs) (VPCs* Palpitations [R00.2] 03/13/2020 Encounter Status:Closed by FERN CALDERON on 03/27/20 [facility] Gilda 03-13-2020 CNOV Office Visit (AGCARDPOB) MAYRA RHOADES ([id number]) 1970 M Date Time Provider Department 03/13/20 2:00 PM TANNER BROWN During your visit today, we recorded the following information about you: Pulse Blood pressure Weight Height 86/minute 132/70 108.9 kg 1.829 m Hayley Crisostomo CMA 03/13/2020 1:26 PM Signed No cardiac complaints today. FRANCES Hurst MD 03/13/2020 4:51 PM Signed PRIMARY CARE PHYSICIAN: Sarwat Way MD ([facility]) [address] [place] [address] REFERRING PHYSICIAN: Sarwat Way MD ([facility]) [address] [facility] [address] Patient Care Team: Sarwat Way as PCP - General (Internal Medicine) CHIEF COMPLAINT: Establish care again for palpitations, arrhythmia HISTORY OF PRESENT ILLNESS: Mr. Rhoades is a 50 year old male who presents today to reestablish care with nc for intermittent palpitations and arrhythmia. He was diagnosed or began experiencing symptoms of arrhythmia and tachycardia in about 1999. In about 2006 he was documented to have supraventricular tachycardia (SVT) by [facility], which my previous notes describe as showing regular short RP narrow complex tachycardia 180 bpm. The SVT abruptly terminated after administration of intravenous adenosine. 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 The arrhythmia was refractory to medical therapy. In October 2007, while I was still working at [facility] in [place], I performed an EP study. This did not reveal inducible SVT, and there was no finding of an accessory pathway. Mr. Rhoades continues to experience palpitations and tachycardia. In August 2009 at [facility] I performed a repeat EP study. This revealed inducible SVT but only with isoproterenol infusion, and the tachycardia was not easily reproducibly inducible. 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 He underwent successful RF catheter ablation of the AVNRT. He had also been experiencing symptomatic PVCs, and during the EP study he was found to have frequent PVCs particularly during isoproterenol infusion. 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 This PVC was also successfully ablated at that time. Mr. Rhoades states that over the years he has done very well with regards to his arrhythmia. He has not been aware of having recurrence of the symptoms that were associated with SVT. He states that he would experience now and then some mild palpitation, such as brief double beats that he attributes to PVCs. However, on a couple of occasions, particularly when stressed by something such as an acute illness, he has experienced more bothersome palpitations. Again, this is not the prolonged rapid heartbeats that he would experience with SVT, but instead the symptoms more suggestive of the ectopic beats or PVCs. For example, he states that a couple weeks ago he experienced a febrile illness for couple of days. He was tested for COVID-19 and was negative, and he was told that he perhaps had some other type of virus. The illness was associated with diarrhea. During this time, he felt like his heart rhythm was out of whack. He experienced frequent pounding, irregular beats and this occurred over a couple of days. In hindsight he recognizes that it would have been helpful to have an EKG or some sort of monitoring performed to try to document the arrhythmia. Since that time he has felt well and has not been experiencing much of the palpitations at all. He denies chest pain, shortness of breath, orthopnea, cough, edema, PND, lightheadedness or syncope. I have confirmed and edited as necessary, the PFSH and ROS obtained by others. PAST MEDICAL HISTORY Diagnosis Date - Anxiety - History of arm fracture 2000 right elbow fracture, healed - History of kidney stones - History of seizures seizures treated with dilantin at age 10 for approx. 4 years - History of syncope - Other and unspecified hyperlipidemia - Other specified cardiac dysrhythmias(427.89) 10/07/2007 - Palpitations 03/13/2020 - Premature ventricular contractions (PVCs) (VPCs) symptomatic PVCs, refractory to medical therapy (beta-mary); noted to be from RVOT at time of EP study 08/2009 (at time of AVNRT catheter ablation); limited attempt made to ablate RVOT PVC considered successful - Psoriasis and similar disorders - Supraventricular tachycardia (HCC) symptomatic AV courtney dependent (adenosine sensitive) SVT since about 1999; refractory to medical therapy; no inducible SVT at 10/2007 EP study; +inducible SVT (AVNRT) at 08/2009 EP study, with successful RF catheter ablation - Tobacco use disorder 0.5 PPD x 10 years - now recreational / weekends PAST SURGICAL HISTORY Procedure Laterality Date - ECHOCARDIOGRAM 07/01/2009 Normal left ventricular systolic function, LVEF 60 to 65%; no significant valvular abnormalities - ELBOW SURGERY HX Right 1999 Open reduction and internal fixation of right olecranon. - EP STUDY 11/25/2007 normal study; no accessory pathway; +dual AV courtney pathways (physiologic) but no inducible SVT; [facility], Dr. Brown - EPS: SVT/VT ABLATION 09/06/2009 +inducible AVNRT with isoproterenol infusion; intermittently frequent PVCs from outflow tract; successful RF catheter ablation AVNRT (AV node slow pathway) and RVOT PVCs; [facility], Dr. Brown - INGUINAL HERNIA REPAIR HX Right 2015 - INGUINAL HERNIA REPAIR HX Left 11/2019 - KNEE ARTHROSCOPY Left 07/2008 - PAST SURGICAL HISTORY OF multiple excision of lipomas - REMOVAL ADENOIDS,PRIMARY,<14 Y/O 1977 Adenoidectomy SOCIAL HISTORY Social History Tobacco Use - Smoking status: Former Smoker Packs/day: 0.50 Years: 19.00 Pack years: 9.50 Types: Cigarettes Start date: 1989 Last attempt to quit: 06/2009 Years since quittin.7 - Smokeless tobacco: Never Used Substance Use Topics - Alcohol use: Not Currently Comment: beer once a month - Drug use: Yes Types: Marijuana Comment: marijuana occasionally - last time last year FAMILY HISTORY Problem Relation Age of Onset - Diabetes Father a. 60 diet controled - Arrythmias Father - other (atrial fibrillation) Father - Heart Maternal Grandfather pacemaker - Arthritis Mother a. 60 - Arrythmias Mother - other (varicose veins) Mother - No Known Problems Sister ALLERGIES: ALLERGIES No Known Allergies MEDICATIONS: clobetasol (TEMOVATE) 0.05 % cream, Apply 1 application to affected area twice daily as needed. APPLY TO AFFECTED AREA FISH OIL-DHA-EPA ORAL, Take 1 capsule by mouth once daily. GARLIC ORAL, Take 1 capsule by mouth once daily. KELP ORAL, Take 1 capsule by mouth once daily. cholecalciferol, vitamin D3, (VITAMIN D3 ORAL), Take 1 capsule by mouth once daily. calcium/mag/vitamin D2/Zn/min (XUAN-MAG ZINC II ORAL), Take 1 capsule by mouth once daily. triamcinolone acetonide(KENALOG-40 INJECTION 40 MG/ML SUSP FOR INJECTION), Approximately every month [id number] UTEIN 18 MG-0.4 MG-250 MCG TAB, Take one(1) tablet daily. celecoxib (CELEBREX) 200 mg capsule, TAKE 1 TABLET BY MOUTH EVENING PRIOR TO OPERATION, 1 TABLET MORNING OF OPERATION, THEN 1 TWICE DAILY HYDROcodone-acetaminop hen (NORCO) 5-325 mg per tablet, TAKE 1 TABLET BY MOUTH EVERY 6 HOURS NEEDED FOR PAIN *MAX 4 TABLETS PER DAY* ALPRAZolam (XANAX) 0.5 mg ORAL tablet, Take 1 tablet by mouth as needed. COMPOUNDED PRESCRIPTION, Unknown steroid cream for psoriasis used up to twice daily REVIEW OF SYSTEMS: Review of Systems Constitutional: Negative for chills, diaphoresis, fever, malaise/fatigue and weight loss. HENT: Negative for ear pain, hearing loss and nosebleeds. Eyes: Negative for blurred vision, double vision, photophobia and pain. Respiratory: Negative for cough, hemoptysis, sputum production, shortness of breath and wheezing. Cardiovascular: Positive for palpitations. Negative for chest pain, orthopnea, leg swelling and PND. Gastrointestinal: Negative for abdominal pain, blood in stool, constipation, diarrhea, heartburn, melena, nausea and vomiting. Genitourinary: Negative for dysuria, flank pain, frequency, hematuria and urgency. Musculoskeletal: Negative for back pain, falls, joint pain, myalgias and neck pain. Skin: Negative for rash. Neurological: Positive for dizziness. Negative for tremors, speech change, focal weakness, seizures and loss of consciousness. Endo/Heme/Allergies: Does not bruise/bleed easily. Psychiatric/Behavioral : Negative for depression, memory loss and substance abuse. The patient is not nervous/anxious. PHYSICAL EXAMINATION: BP 132/70 Pulse 86 Ht 6' 0 (1.83m) Wt 240 lb (108.9kg) SpO2 98% BMI 32.54 kg/(m2). Physical Exam CARDIOVASCULAR MEDICINE TESTING: Electrocardiogram: Sinus rhythm 77 bpm; normal conduction intervals (NH 144 ms, QRS 86 ms); no WPW patterns I have personally reviewed the Electrocardiogram. ASSESSMENT/PLAN: 1. Palpitations - ICD9: 785.1, ICD10: R00.2 (primary diagnosis) 2. PAROXYSMAL SUPRAVENTRICULAR TACHYCARDIA: adenosine sensitive, short R-P narrow complex tachycardia - ICD9: 427.2, ICD10: I47.9 3. Premature ventricular contractions (PVCs) (VPCs) - ICD9: 427.69, ICD10: I49.3 4. Obesity, Class I, BMI 30-34.9 - ICD9: 278.00, ICD10: E66.9 IMPRESSION: Mr. Rhoades experienced recurrence of palpitations that seemed to him to be consistent with what he experienced in the past with PVCs. He does have a history of PVCs and at EP study in August 2009 these were mapped to the RVOT and successfully ablated. He might be having recurrence of these PVCs or a different PVC focus. The symptoms worsen primarily during periods of acute illness or stress, and overall he has not been having much bothersome symptoms in this regard. But he was concerned about the fact that palpitations periodically worsen and wanted to be evaluated. I reassured him that the PVCs were most likely benign and not likely to be harmful. This is particularly true for PVCs in the setting of normal heart structurally. With this in mind, it would be reassuring to repeat an echocardiogram to evaluate for cardiomyopathy. At this point with near resolution of his palpitations the yield of cardiac monitoring, even over an extended period of time such as two-week patch electrode, might be low. I had a discussion with him about cardiac monitoring and we both agreed that we would wait for now before ordering such monitoring. I had a detailed discussion with Mr. Rhoades regarding my evaluation and recommendations. After our discussion, Mr. Rhoades expressed his understanding and I answered all his questions to his apparent satisfaction. PLAN AND RECOMMENDATIONS: 1) echocardiogram to evaluate ventricular function, valves (order placed) 2) consider cardiac monitoring if his symptoms return and worsen Return in about 6 months (around 09/12/2020) for appt with Dr. Brown or EILEEN CARPENTER, with EKG. Tanner Brown MD 03/13/2020 Tanner Brown MD 03/13/2020 2:52 PM Signed Heart Rhythm Problem (Arrhythmia) What is arrhythmia? Arrhythmia is an abnormal rhythm of your heartbeat. Your heart may beat faster or more slowly than normal, or it may skip beats. This can make it harder for the heart to pump enough blood to your body. Another term for arrhythmia is dysrhythmia. What is the cause? An electrical signal in your heart starts each heartbeat, causing the heart muscle to squeeze (contract). Normally, this signal starts in the upper right chamber of the heart (the right atrium) at a place called the sinus node. The signal then follows normal pathways to the upper left atrium and to the lower chambers of the heart (the ventricles). You may have an abnormal heart rhythm if the electrical signals don?t follow the normal pathways or the nerve cells that make the electrical signals don?t work right. Common causes of heart rhythm problems are conditions that damage the heart, like coronary artery disease, heart attack, or heart failure. Problems with the heart valves are another common cause. The heart has 4 valves that open and close with each heartbeat to help blood flow in the right direction through the heart. Some other causes of heart rhythm problems include: -Health problems, such as a stroke, lung disease, diabetes, overactive thyroid gland, or high blood pressure -Abuse of alcohol or drugs, such as cocaine -Some medicines, such as cold medicines -Some natural remedies, such as ephedra, guarana, and licorice Exercise or emotional stress can make your heart beat faster or skip beats, but this is usually not a cause for concern. Sometimes no cause for arrhythmia can be found. What are the different types of arrhythmia? There are many different types of arrhythmia. The heart may beat very slowly (bradycardia) or very fast (tachycardia). The abnormal rhythm may start in either the upper or the lower heart chambers. The 2 main types of arrhythmia are: -Atrial arrhythmia: The electrical signals don?t start in the normal place in the right atrium and don?t travel normally. This can cause part or all of the heart to beat very fast and not in a normal pattern. This affects the ability of the heart to pump blood to the rest of the body. -Ventricular arrhythmia: The abnormal rhythm starts in the lower chambers of the heart. The heart beats in a rhythm that may be irregular or very fast. If severe and untreated, it can be life-threatening. What are the symptoms? Some arrhythmias do not cause any symptoms, or the symptoms may come and go. Your body may simply adjust to the change in rhythm over time. When you do have symptoms, they may include: -Feeling like your heart is beating too fast or too hard or skipping beats or fluttering -Feeling dizzy or lightheaded -Fainting -Feeling tired or weak -Chest pain -Shortness of breath How is it diagnosed? Your healthcare provider will ask about your symptoms and medical history and examine your heart and lungs. Tests may include: -An ECG (also called an EKG), which measures and records your heartbeat. You may have an ECG while you are resting or while you exercise on a treadmill. You may also be asked to wear a small portable ECG monitor for a few days or sometimes a couple weeks. -Blood tests -Chest X-ray -An echocardiogram, which uses sound waves (ultrasound) to show the structures of the heart and how well the heart muscle is pumping -An angiogram, which uses dye injected into a vein and X-rays to look for narrowing or blockages of blood vessels -An electrophysiology study (EPS), which uses tiny wires put into your heart through your veins to look at the electrical pathways in your heart How is it treated? The goal of treatment is to help the heart keep a normal rhythm. The right treatment for you depends on the cause of the arrhythmia, how often you have symptoms, and the severity of your symptoms. If you have no symptoms, or your symptoms are fairly mild, you may not need treatment. If a health problem like a leaky heart valve or heart failure is causing the arrhythmia, treating the health problem may also treat the arrhythmia. Other possible treatments are: -Medicine to control the heart rate -Surgery to: ?Make small cuts or scars in the heart that will block abnormal electrical pathways (cardiac ablation) ?Put an electronic device, such as a pacemaker, under the skin in your chest to help control the heartbeat ?Improve blood flow to the heart if you have coronary artery disease (bypass surgery) How can I take care of myself? Follow your healthcare provider's instructions. Ask your provider: -How and when you will hear your test results -How long it will take to recover -What activities you should avoid and when you can return to your normal activities -How to take care of yourself at home -What symptoms or problems you should watch for and what to do if you have them Make sure you know when you should come back for a checkup. How can I help prevent arrhythmia? The best prevention is to have a heart-healthy lifestyle: -Keep a healthy weight. -Eat a healthy diet. -Stay fit with the right kind of exercise for you. -Decrease stress. -Don?t smoke. -Limit your use of alcohol. Let your healthcare provider know if you have a family history of arrhythmia. If you have heart disease or high blood pressure, follow your healthcare provider's instructions for treatment. Developed by [employer]. Published by [employer]. Copyright ?2014 [employer] and/or one of its subsidiaries. All rights reserved. Referring Provider: SARWAT WAY [[id number]] Allergies As of Date: 03/13/2020 (No Known Allergies) Date Reviewed: 03/13/2020 Reviewed by: Hayley ([facility]) Kranthi - Fully Assessed Reason for Visit: New Patient [[id number]] Cmt: re-establish care PVC'S Primary Visit Diagnosis:Palpitations [R00.2] Other Visit Diagnoses:PAROXYSMAL SUPRAVENTRICULAR TACHYCARDIA: adenosine sensitive, short R-P narrow complex tachycardia [I47.9] Premature ventricular contractions (PVCs) (VPCs) [I49.3] Obesity, Class I, BMI 30-34.9 [E66.9] Order(s):ECG B/O W INTERP (MED OFFICE) [ECG06] Order #: [id number] ECHO [[id number]] Order #: [id number]: 1 FUTURE Prescriptions as of 03/13/2020 Sig: CLOBETASOL 0.05 % TOPICAL CRE* Apply 1 application to affect* FISH OIL-DHA-EPA ORAL Take 1 capsule by mouth once * GARLIC ORAL Take 1 capsule by mouth once * KELP ORAL Take 1 capsule by mouth once * VITAMIN D3 ORAL Take 1 capsule by mouth once * XUAN-MAG ZINC II ORAL Take 1 capsule by mouth once * KENALOG-40 INJECTION 40 MG/ML* Approximately every month [id number] UTEIN 1* Take one(1) tablet daily. CELECOXIB 200 MG CAPSULE TAKE 1 TABLET BY MOUTH EVENIN* HYDROCODONE 5 MG-ACETAMINOPHE* TAKE 1 TABLET BY MOUTH EVERY * ALPRAZOLAM 0.5 MG TABLET Take 1 tablet by mouth as nee* COMPOUNDED PRESCRIPTION Unknown steroid cream for pso* Problem List As Of Date 03/13/2020 Noted Resolved PREMATURE VENTRICULAR CONTRACTIONS (PVCs): symp*10/07/2007 PAROXYSMAL SUPRAVENTRICULAR TACHYCARDIA: adenos*10/07/2007 Varicose veins of lower extremities with other *04/24/2011 Obesity, Class I, BMI 30-34.9 [E66.9] 03/13/2020 Premature ventricular contractions (PVCs) (VPCs* Palpitations [R00.2] 03/13/2020 Other instructions from your clinician: Heart Rhythm Problem (Arrhythmia) What is arrhythmia? Arrhythmia is an abnormal rhythm of your heartbeat. Your heart may beat faster or more slowly than normal, or it may skip beats. This can make it harder for the heart to pump enough blood to your body. Another term for arrhythmia is dysrhythmia. What is the cause? An electrical signal in your heart starts each heartbeat, causing the heart muscle to squeeze (contract). Normally, this signal starts in the upper right chamber of the heart (the right atrium) at a place called the sinus node. The signal then follows normal pathways to the upper left atrium and to the lower chambers of the heart (the ventricles). You may have an abnormal heart rhythm if the electrical signals don?t follow the normal pathways or the nerve cells that make the electrical signals don?t work right. Common causes of heart rhythm problems are conditions that damage the heart, like coronary artery disease, heart attack, or heart failure. Problems with the heart valves are another common cause. The heart has 4 valves that open and close with each heartbeat to help blood flow in the right direction through the heart. Some other causes of heart rhythm problems include: -Health problems, such as a stroke, lung disease, diabetes, overactive thyroid gland, or high blood pressure -Abuse of alcohol or drugs, such as cocaine -Some medicines, such as cold medicines -Some natural remedies, such as ephedra, guarana, and licorice Exercise or emotional stress can make your heart beat faster or skip beats, but this is usually not a cause for concern. Sometimes no cause for arrhythmia can be found. What are the different types of arrhythmia? There are many different types of arrhythmia. The heart may beat very slowly (bradycardia) or very fast (tachycardia). The abnormal rhythm may start in either the upper or the lower heart chambers. The 2 main types of arrhythmia are: -Atrial arrhythmia: The electrical signals don?t start in the normal place in the right atrium and don?t travel normally. This can cause part or all of the heart to beat very fast and not in a normal pattern. This affects the ability of the heart to pump blood to the rest of the body. -Ventricular arrhythmia: The abnormal rhythm starts in the lower chambers of the heart. The heart beats in a rhythm that may be irregular or very fast. If severe and untreated, it can be life-threatening. What are the symptoms? Some arrhythmias do not cause any symptoms, or the symptoms may come and go. Your body may simply adjust to the change in rhythm over time. When you do have symptoms, they may include: -Feeling like your heart is beating too fast or too hard or skipping beats or fluttering -Feeling dizzy or lightheaded -Fainting -Feeling tired or weak -Chest pain -Shortness of breath How is it diagnosed? Your healthcare provider will ask about your symptoms and medical history and examine your heart and lungs. Tests may include: -An ECG (also called an EKG), which measures and records your heartbeat. You may have an ECG while you are resting or while you exercise on a treadmill. You may also be asked to wear a small portable ECG monitor for a few days or sometimes a couple weeks. -Blood tests -Chest X-ray -An echocardiogram, which uses sound waves (ultrasound) to show the structures of the heart and how well the heart muscle is pumping -An angiogram, which uses dye injected into a vein and X-rays to look for narrowing or blockages of blood vessels -An electrophysiology study (EPS), which uses tiny wires put into your heart through your veins to look at the electrical pathways in your heart How is it treated? The goal of treatment is to help the heart keep a normal rhythm. The right treatment for you depends on the cause of the arrhythmia, how often you have symptoms, and the severity of your symptoms. If you have no symptoms, or your symptoms are fairly mild, you may not need treatment. If a health problem like a leaky heart valve or heart failure is causing the arrhythmia, treating the health problem may also treat the arrhythmia. Other possible treatments are: -Medicine to control the heart rate -Surgery to: ?Make small cuts or scars in the heart that will block abnormal electrical pathways (cardiac ablation) ?Put an electronic device, such as a pacemaker, under the skin in your chest to help control the heartbeat ?Improve blood flow to the heart if you have coronary artery disease (bypass surgery) How can I take care of myself? Follow your healthcare provider's instructions. Ask your provider: -How and when you will hear your test results -How long it will take to recover -What activities you should avoid and when you can return to your normal activities -How to take care of yourself at home -What symptoms or problems you should watch for and what to do if you have them Make sure you know when you should come back for a checkup. How can I help prevent arrhythmia? The best prevention is to have a heart-healthy lifestyle: -Keep a healthy weight. -Eat a healthy diet. -Stay fit with the right kind of exercise for you. -Decrease stress. -Don?t smoke. -Limit your use of alcohol. Let your healthcare provider know if you have a family history of arrhythmia. If you have heart disease or high blood pressure, follow your healthcare provider's instructions for treatment. Developed by [employer]. Published by [employer]. Copyright ?2014 [employer] and/or one of its subsidiaries. All rights reserved. Visit Notes: >> Hayley Crisostomo Wed Mar 13, 2020 1:13 PM Status: Signed No cardiac complaints today. Hayley Crisostomo CMA Disposition: Return in about 6 months (around 09/12/2020) for appt with Dr. Brown or EILEEN CARPENTER, with EKG. Follow-up and Disposition History Recorded Letter Text Encounter Status:Closed by TANNER BROWN MD on 03/13/20 [facility] PROGRESSon 03-13-2020 PROGRESS HNO ID: [id number] Author: Tanner Brown Service: ? Author Type: Physician Type: Progress Notes Filed: 03/13/2020 4:51 PM Note Text: PRIMARY CARE PHYSICIAN: Sarwat Way MD ([facility]) [address] [place] [address] REFERRING PHYSICIAN: Sarwat Way MD ([facility]) [address] [facility] [id number] Patient Care Team: Sarwat Way as PCP - General (Internal Medicine) CHIEF COMPLAINT: Establish care again for palpitations, arrhythmia HISTORY OF PRESENT ILLNESS: Mr. Rhoades is a 50 year old male who presents today to reestablish care with me for intermittent palpitations and arrhythmia. He was diagnosed or began experiencing symptoms of arrhythmia and tachycardia in about 1999. In about 2006 he was documented to have supraventricular tachycardia (SVT) by [facility], which my previous notes describe as showing regular short RP narrow complex tachycardia 180 bpm. The SVT abruptly terminated after administration of intravenous adenosine. 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 The arrhythmia was refractory to medical therapy. In October 2007, while I was still working at [facility] in [place], I performed an EP study. This did not reveal inducible SVT, and there was no finding of an accessory pathway. Mr. Rhoades continues to experience palpitations and tachycardia. In August 2009 at [facility] I performed a repeat EP study. This revealed inducible SVT but only with isoproterenol infusion, and the tachycardia was not easily reproducibly inducible. 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 He underwent successful RF catheter ablation of the AVNRT. He had also been experiencing symptomatic PVCs, and during the EP study he was found to have frequent PVCs particularly during isoproterenol infusion. 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 This PVC was also successfully ablated at that time. Mr. Rhoades states that over the years he has done very well with regards to his arrhythmia. He has not been aware of having recurrence of the symptoms that were associated with SVT. He states that he would experience now and then some mild palpitation, such as brief double beats that he attributes to PVCs. However, on a couple of occasions, particularly when stressed by something such as an acute illness, he has experienced more bothersome palpitations. Again, this is not the prolonged rapid heartbeats that he would experience with SVT, but instead the symptoms more suggestive of the ectopic beats or PVCs. For example, he states that a couple weeks ago he experienced a febrile illness for couple of days. He was tested for COVID-19 and was negative, and he was told that he perhaps had some other type of virus. The illness was associated with diarrhea. During this time, he felt like his heart rhythm was out of whack. He experienced frequent pounding, irregular beats and this occurred over a couple of days. In hindsight he recognizes that it would have been helpful to have an EKG or some sort of monitoring performed to try to document the arrhythmia. Since that time he has felt well and has not been experiencing much of the palpitations at all. He denies chest pain, shortness of breath, orthopnea, cough, edema, PND, lightheadedness or syncope. I have confirmed and edited as necessary, the PFSH and ROS obtained by others. PAST MEDICAL HISTORY Diagnosis Date - Anxiety - History of arm fracture 1999 right elbow fracture, healed - History of kidney stones - History of seizures seizures treated with dilantin at age 10 for approx. 4 years - History of syncope - Other and unspecified hyperlipidemia - Other specified cardiac dysrhythmias(427.89) 10/07/2007 - Palpitations 03/13/2020 - Premature ventricular contractions (PVCs) (VPCs) symptomatic PVCs, refractory to medical therapy (beta-mary); noted to be from RVOT at time of EP study 08/2009 (at time of AVNRT catheter ablation); limited attempt made to ablate RVOT PVC considered successful - Psoriasis and similar disorders - Supraventricular tachycardia (HCC) symptomatic AV courtney dependent (adenosine sensitive) SVT since about 1999; refractory to medical therapy; no inducible SVT at 10/2007 EP study; +inducible SVT (AVNRT) at 08/2009 EP study, with successful RF catheter ablation - Tobacco use disorder 0.5 PPD x 10 years - now recreational / weekends PAST SURGICAL HISTORY Procedure Laterality Date - ECHOCARDIOGRAM 07/01/2009 Normal left ventricular systolic function, LVEF 60 to 65%; no significant valvular abnormalities - ELBOW SURGERY HX Right 1999 Open reduction and internal fixation of right olecranon. - EP STUDY 11/25/2007 normal study; no accessory pathway; +dual AV courtney pathways (physiologic) but no inducible [facility]/VT ABLATION 09/06/2009 +inducible AVNRT with isoproterenol infusion; intermittently frequent PVCs from outflow tract; successful RF catheter ablation AVNRT (AV node slow pathway) and RVOT PVCs; [facility], Dr. Schweikert - INGUINAL HERNIA REPAIR HX Right 2015 - INGUINAL HERNIA REPAIR HX Left 11/2019 - KNEE ARTHROSCOPY Left 07/2008 - PAST SURGICAL HISTORY OF multiple excision of lipomas - REMOVAL ADENOIDS,PRIMARY,<12 Y/O 1978 Adenoidectomy SOCIAL HISTORY Social History Tobacco Use - Smoking status: Former Smoker Packs/day: 0.50 Years: 19.00 Pack years: 9.50 Types: Cigarettes Start date: 1989 Last attempt to quit: 06/2009 Years since quittin.7 - Smokeless tobacco: Never Used Substance Use Topics - Alcohol use: Not Currently Comment: beer once a month - Drug use: Yes Types: Marijuana Comment: marijuana occasionally - last time last year FAMILY HISTORY Problem Relation Age of Onset - Diabetes Father a. 60 diet controled - Arrythmias Father - other (atrial fibrillation) Father - Heart Maternal Grandfather pacemaker - Arthritis Mother a. 60 - Arrythmias Mother - other (varicose veins) Mother - No Known Problems Sister ALLERGIES: ALLERGIES No Known Allergies MEDICATIONS: clobetasol (TEMOVATE) 0.05 % cream, Apply 1 application to affected area twice daily as needed. APPLY TO AFFECTED AREA FISH OIL-DHA-EPA ORAL, Take 1 capsule by mouth once daily. GARLIC ORAL, Take 1 capsule by mouth once daily. KELP ORAL, Take 1 capsule by mouth once daily. cholecalciferol, vitamin D3, (VITAMIN D3 ORAL), Take 1 capsule by mouth once daily. calcium/mag/vitamin D2/Zn/min (XUAN-MAG ZINC II ORAL), Take 1 capsule by mouth once daily. triamcinolone acetonide(KENALOG-40 INJECTION 40 MG/ML SUSP FOR INJECTION), Approximately every month LIQALQIL-HETR-GLE-FA-L UTEIN 18 MG-0.4 MG-250 MCG TAB, Take one(1) tablet daily. celecoxib (CELEBREX) 200 mg capsule, TAKE 1 TABLET BY MOUTH EVENING PRIOR TO OPERATION, 1 TABLET MORNING OF OPERATION, THEN 1 TWICE DAILY HYDROcodone-acetaminop hen (NORCO) 5-325 mg per tablet, TAKE 1 TABLET BY MOUTH EVERY 6 HOURS NEEDED FOR PAIN *MAX 4 TABLETS PER DAY* ALPRAZolam (XANAX) 0.5 mg ORAL tablet, Take 1 tablet by mouth as needed. COMPOUNDED PRESCRIPTION, Unknown steroid cream for psoriasis used up to twice daily REVIEW OF SYSTEMS: Review of Systems Constitutional: Negative for chills, diaphoresis, fever, malaise/fatigue and weight loss. HENT: Negative for ear pain, hearing loss and nosebleeds. Eyes: Negative for blurred vision, double vision, photophobia and pain. Respiratory: Negative for cough, hemoptysis, sputum production, shortness of breath and wheezing. Cardiovascular: Positive for palpitations. Negative for chest pain, orthopnea, leg swelling and PND. Gastrointestinal: Negative for abdominal pain, blood in stool, constipation, diarrhea, heartburn, melena, nausea and vomiting. Genitourinary: Negative for dysuria, flank pain, frequency, hematuria and urgency. Musculoskeletal: Negative for back pain, falls, joint pain, myalgias and neck pain. Skin: Negative for rash. Neurological: Positive for dizziness. Negative for tremors, speech change, focal weakness, seizures and loss of consciousness. Endo/Heme/Allergies: Does not bruise/bleed easily. Psychiatric/Behavioral : Negative for depression, memory loss and substance abuse. The patient is not nervous/anxious. PHYSICAL EXAMINATION: BP 132/70 Pulse 86 Ht 6' 0 (1.83m) Wt 240 lb (108.9kg) SpO2 98% BMI 32.54 kg/(m2). Physical Exam CARDIOVASCULAR MEDICINE TESTING: Electrocardiogram: Sinus rhythm 77 bpm; normal conduction intervals (NH 144 ms, QRS 86 ms); no WPW patterns I have personally reviewed the Electrocardiogram. ASSESSMENT/PLAN: 1. Palpitations - ICD9: 785.1, ICD10: R00.2 (primary diagnosis) 2. PAROXYSMAL SUPRAVENTRICULAR TACHYCARDIA: adenosine sensitive, short R-P narrow complex tachycardia - ICD9: 427.2, ICD10: I47.9 3. Premature ventricular contractions (PVCs) (VPCs) - ICD9: 427.69, ICD10: I49.3 4. Obesity, Class I, BMI 30-34.9 - ICD9: 278.00, ICD10: E66.9 IMPRESSION: Mr. Rhoades experienced recurrence of palpitations that seemed to him to be consistent with what he experienced in the past with PVCs. He does have a history of PVCs and at EP study in August 2009 these were mapped to the RVOT and successfully ablated. He might be having recurrence of these PVCs or a different PVC focus. The symptoms worsen primarily during periods of acute illness or stress, and overall he has not been having much bothersome symptoms in this regard. But he was concerned about the fact that palpitations periodically worsen and wanted to be evaluated. I reassured him that the PVCs were most likely benign and not likely to be harmful. This is particularly true for PVCs in the setting of normal heart structurally. With this in mind, it would be reassuring to repeat an echocardiogram to evaluate for cardiomyopathy. At this point with near resolution of his palpitations the yield of cardiac monitoring, even over an extended period of time such as two-week patch electrode, might be low. I had a discussion with him about cardiac monitoring and we both agreed that we would wait for now before ordering such monitoring. I had a detailed discussion with Mr. Rhoades regarding my evaluation and recommendations. After our discussion, Mr. Rhoades expressed his understanding and I answered all his questions to his apparent satisfaction. PLAN AND RECOMMENDATIONS: 1) echocardiogram to evaluate ventricular function, valves (order placed) 2) consider cardiac monitoring if his symptoms return and worsen Return in about 6 months (around 09/12/2020) for appt with Dr. Brown or EILEEN CARPENTER, with EKG. Tanner Brown MD 03/13/2020 Normal [facility] Vital Signs Date Time Vital Sign Value Performing Clinician Facility 01-25-2025 10:05040 Body height 182.88 cm Sarwat [employer]App Work Phone: [facility] 01-25-2025 10:05-0400 Body mass index (BMI) [Ratio] 32.5 kg/m2 [facility] Work Phone: [facility] 01-25-2025 10:05-040 Body weight 108.86 kg Sarwat [employer] Work Phone: [facility] 01-25-2025 10:05-0400 Diastolic blood pressure 90 mm[Hg] Partly Work Phone: [facility] 01-25-2025 10:05-0400 Heart rate 78 /min Partly Work Phone: [facility] 01-25-2025 10:05-0400 Systolic blood pressure 150 mm[Hg] Partly Work Phone: [facility] 12-07-2024 10:58-0400 Diastolic blood pressure 76 mm[Hg] Sarwat Ball DO Work Phone: [facility] 12-07-2024 10:58-0400 Heart rate 90 /min Sarwat Ball DO Work Phone: [facility] 12-07-2024 10:58-0400 Respiratory rate 18 /min Sarwat Ball DO Work Phone: [facility] 12-07-2024 10:58-0400 SaO2% (BldA) [Mass fraction] 97 % Sarwat Ball DO Work Phone: [facility] 12-07-2024 10:58-0400 Systolic blood pressure 144 mm[Hg] Sarwat Ball DO Work Phone: [facility] 12-07-2024 09:55-0400 Body height 182.88 cm Sarwat Ball DO Work Phone: [facility] 12-07-2024 09:55-0400 Body weight 108.86 kg Sarwat Ball DO Work Phone: [facility] 11-13-2024 13:46-0500 Body height 182.88 cm [facility] 11-13-2024 13:46-0500 Body mass index (BMI) [Ratio] 34.3 kg/m2 [facility] 11-13-2024 13:46-0500 Body weight 114.81 kg [facility] 11-13-2024 13:46-0500 Diastolic blood pressure 75 mm[Hg] [facility] 11-13-2024 13:46-0500 Heart rate 80 /min [facility] 11-13-2024 13:46-0500 Respiratory rate 12 /min [facility] 11-13-2024 13:46-0500 Systolic blood pressure 150 mm[Hg] [facility] 08-15-2024 14:20-0500 Body height 182.88 cm [facility] 08-15-2024 14:20-0500 Body mass index (BMI) [Ratio] 32.7 kg/m2 [facility] 08-15-2024 14:20-0500 Body weight 109.54 kg [facility] 08-15-2024 14:20-0500 Diastolic blood pressure 79 mm[Hg] [facility] 08-15-2024 14:20-0500 Heart rate 75 /min [facility] 08-15-2024 14:20-0500 Respiratory rate 12 /min [facility] 08-15-2024 14:20-0500 Systolic blood pressure 186 mm[Hg] [facility] 10-28-2023 09:15-0500 Body height 182.88 cm Sarwat Ball Other [facility] [employer] Other 10-28-2023 09:15-0500 Body mass index (BMI) [Ratio] 32.46 kg/m2 Sarwat Ball Other [facility] Other 10-28-2023 09:15-0500 Body weight 108.59 kg Sarwat Ball Other [facility] Other 10-28-2023 09:15-0500 Diastolic blood pressure 82 mm[Hg] Sarwat Ball Other [facility] Other 10-28-2023 09:15-0500 Respiratory rate 12 /min Sarwat Ball Other [facility] Other 10-28-2023 09:15-0500 Systolic blood pressure 147 mm[Hg] Sarwat Ball Other [facility] Other Encounters Encounter Date Encounter Type Care Provider Facility Start: 01-25-2025 End: 01-25-2025 ambulatory Sarwat Ball DO Work Phone: [facility] Work Phone: Start: 01-25-2025 End: 01-25-2025 Patient encounter procedure Sarwat Ball DO Work Phone: [facility] Work Phone: Start: 12-07-2024 Non-patient / Non-visit Benjam in Ball DO Work Phone: [facility] Work Phone: Start: 12-07-2024 End: 12-07-2024 Admission to same day surgery center Sarwat Ball DO Work Phone: [facility] Work Phone: Start: 12-07-2024 End: 12-07-2024 ambulatory Sarwat Ball DO Work Phone: [facility] Work Phone: Start: 11-13-2024 End: 11-13-2024 ambulatory [facility] Work Phone: Start: 11-13-2024 End: 11-13-2024 Patient encounter procedure [facility] Work Phone: Start: 11-07-2024 Non-patient / Non-visit [facility] Work Phone: Start: 11-03-2024 Non-patient / Non-visit [facility] Work Phone: Start: 09-06-2024 End: 09-06-2024 ambulatory Sarwat Ball Facility:[facility] Start: 09-06-2024 Non-patient / Non-visit [facility] Work Phone: Start: 08-15-2024 End: 08-15-2024 ambulatory [facility] Work Phone: Start: 08-15-2024 End: 08-15-2024 Encounter for general adult medical examination without abnormal findings [facility] Start: 08-15-2024 End: 08-15-2024 Patient encounter procedure [facility] Work Phone: Start: 08-13-2024 Patient encounter status [facility] Start: 08-11-2024 Non-patient / Non-visit [facility] Work Phone: Start: 07-27-2024 End: 07-27-2024 ambulatory [facility] Work Phone: Start: 07-27-2024 End: 07-27-2024 Patient encounter procedure [facility] Work Phone: Start: 04-13-2024 End: 04-13-2024 ambulatory [facility] Work Phone: Start: 04-13-2024 End: 04-13-2024 Patient encounter procedure [facility] Work Phone: Start: 03-21-2024 Non-patient / Non-visit [facility] Work Phone: Start: 10-28-2023 End: 10-28-[address] Other [facility] Other Start: 10-28-2023 Office outpatient vi sit [address] [facility] Start: 03-10-2023 End: 03-10-2023 ambulatory Shalonda Glaser Other [facility] Other Start: 03-10-2023 Nursing evaluation o f patient and report Shalonda Glaser [facility] Start: 11-17-2022 End: 11-17-[address] Other [facility] Other Start: 11-17-2022 Nursing evaluation o f patient and report [facility] Start: 09-10-2022 Adult health examination [address] Other [facility] Other Start: 04-08-2022 Encounter for genera l adult medical examination without abnormal findings DR SARWAT WAY [facility] Start: 04-07-2022 End: 04-08-[address] Facility:[facility] Start: 04-07-2022 End: 04-08-2022 Encounter for general adult medical examination without abnormal findings DR SARWAT AWY Facility:[facility] Start: 09-22-2021 End: 09-22-[address] Facility:[facility] Start: 07-14-2021 End: 07-15-[address] Facility:[facility] Start: 05-26-2021 End: 05-27-[address] Facility:[facility] Start: 11-01-2020 End: 11-01-2020 Telephone encounter Tanner Brown Work Phone: [facility] Comment on above: Results Start: 11-01-2020 End: 11-01-2020 Subsequent hospital visit by physician Card [facility] Comment on above: Paroxysmal tachycard ia, unspecified (HCC) [I47.9] Procedures Date Procedure Procedure Detail Performing Clinician Start: 12-07-2024 Colonoscopy Sarwat Hallman all DO Work Phone: Start: 04-07-[address] Comment on above: Performed By: #### P SASC #### [facility] [address] [place] [address] Dr. Marlee Faria Start: 11-01-2020 Echo tthrc r-t 2d w/wom-mode compl spec&colr d Tanner Brown Work Phone: Depression screening [address] Other Plan of Treatment Date Care Activity Detail Author Start: 12-07-2024 [facility] Start: 11-13-2024 Patient referral [facility] Work Phone: Start: 05-28-2020 Influenza vaccination INFLUENZA (#1) [facility] Start: 02-13-2017 DIABETES SCREEN DIABETES SCREEN [facility] Start: 02-13-2007 LIPID SCREEN LIPID SCREEN [facility] Start: 02-13-1991 Urine microalbumin profile DTAP,TDAP,TD (1 - Tdap) [facility] Start: 02-13-1990 ANNUAL PCP TEAM CHRONIC DISEASE VISIT ANNUAL PCP TEAM CHRONIC DISEASE VISIT [facility] Start: 02-13-1990 BP CONTROLLED (<130/80) BP CONTROLLED (<130/80) [facility] Start: 02-13-1990 HEPATITIS C SCREENING HEPATITIS C SCREENING [facility] Start: 02-13-1990 HIV SCREENING HIV SCREENING [facility] Electromyography [facility] Patient Education Hemorrhoids Hi gh-fiber diet Diverticulosis Know your Meds [facility] Work Phone: Patient referral [facility] Work Phone: [facility] Payers Date Payer Category Payer Self-pay 2024 Private Health Insurance [id number] 2020 Unknown MMO MMO [employer] PLUS [id number] 2020-Present PPO [id number] 2015 Unknown MMO MMO [employer] PLUS [id number] 2015-Present PPO [id number] 1972 Unknown [id number] 1972 Unknown [id number] 1972 Unknown [id number] 1972 Unknown [id number] 1959 Private Health Insurance [id number] 1959 Unknown [id number] 1959 Unknown [id number] Private Health Insurance [id number] Private Health Insurance [employer] [id number] Unknown [id number] Unknown [id number] Unknown [id number] Social History Date Type Detail Facility Start: 11-01-2020 [facility] Start: 09-27-1989 End: 06-27-2009 History of tobacco use Current smoker [facility] Start: 09-27-1989 End: 06-27-2009 History of tobacco use Cigarette Smoker [facility] Start: 11-01-2020 Cigarettes smoked current (pack per day) - Reported [facility] Start: 11-01-2020 Tobacco use and exposure Never used [facility] Start: 11-01-2020 Alcohol intake Ex-drinker (finding) [facility] Start: 02-18-2011 Alcohol Comment beer once a month [facility] Start: 1970 Sex Assigned At Not on file [facility] Exposure to SARS-CoV -2 (event) Not sure [facility] Sex Assigned At Sex Assigned At [facility] Other Start: 1970 Sex Assigned At Male F [facility] Work Phone: Start: 08-15-2024 End: 01-25-2025 Sex Male (finding) [facility] Start: 12-07-2024 [facility] (finding) [facility] Goals Date Patient Goal Desired Activity /State Clinical Notes 09-22-2021 to 12-07-2024 Note Date & Type Note Facility 12-07-2024 Procedure note [facility] 12-07-2024 History and physical note [facility] 11-25-2024 History and physical note Note Date/Time December 07, 2024 10:17am [facility] [address] [place] [address] Gastroenterology H&P Signed Patient: Mayra Rhoades MR#: [id number] : 1970 Acct:[id number] Age/Sex: 54 / M Adm Date: 5 Loc: Room: Type: [facility] Attending Dr: Iván Mcnulty MD Copies to: DO Iván Rm MD~ Date of Service: 12/07/2024 HISTORY & PHYSICAL: Patient's history with special attention to the cardiovascular, pulmonary systems and the current problem was reviewed with the patient immediately prior to the procedure. Present medications and doses reviewed in the EMR. Allergies and pertinent laboratory tests were also reviewedat this time in the EMR. The physical examination, as below, was then performed. Indication, assessment and HPI: This is a 54-year-old male who presents for colonoscopy to evaluate rectal bleeding. He states that he had a single episodeof rectal bleeding after forcefully passing a large, hard stool that he shot out this was followed by several episodes of diarrhea with bright red blood. About 6 in total and then spontaneous resolution. No further bleeding since. He is not on any blood thinners. Family history of GI malignancy? no PHYSICAL EXAMINATION Mouth and Pharynx : moist mucus membranes, normal dentition Eyes: EOM intact b/l, normal sclera Pulmonary: normal respiratory effort, able to speak in complete sentences Neurological: alert and oriented x3, moves all extremities Skin: non-jaundiced, warm and dry Abdomen: non-distended, normal to inspection Psych: Mental status and mood grossly normal REVIEW OF SYSTEMS Constitutional: Denies malaise, fevers Cardiovascular: Denies chest pain, palpitations Respiratory: Denies shortness of breath, wheezing Gastrointestinal: Per HPI Genitourinary: Denies dysuria, polyuria Musculoskeletal: Denies joint swelling, joint stiffness Neurological: Denies numbness, tingling Integumentary: Denies rashes, skin lesions Endocrine: Denies fatigue, weight loss Written informed consent obtained from the patient. Risks (including but not limited to perforation, infection, bloating, bleeding, need for emergent surgeryand loss of life), benefits and alternatives explained and questions answered. The patient verbalized understanding. Based on history patient is an appropriate candidate for the procedure. Iván Mcnulty MD Documented By: Iván Mcnulty MD 12/07/24 1016 Signed By: <Electronically signed by Iván Mcnulty MD> 12/07/24 1017 [facility] Work Phone: 1(454) 942-702202-17-2025 Evaluation note* Diagnosis Onset Date Resolution Status Admit Date Carpal tunnel syndrome on brock th sides acute November 13, 2 025 1:41pm Cholelithiasis acute October 282024 1:41pm Hypercholesterolemia acute 2024 1:41pm Hypertension acute October 1:41pm Obesity acute November 13, 2024 1:41pm PVC (premature ventricular contraction) acute November 13 2 025 1:41pm Rectal bleeding acute November 13, 2024 1:41pm [facility] Work Phone: 1(570) 516-485202-17-2025 Evaluation note* Diagnosis Onset Date Resolution Status Admit Date Carpal tunnel syndrome on brock th sides acute November 13, 2 025 1:41pm Cholelithiasis acute October 282024 1:41pm Hypercholesterolemia acute 2024 1:41pm Hypertension acute October 1:41pm Obesity acute November 13, 2024 1:41pm PVC (premature ventricular contraction) acute November 13 025 1:41pm Rectal bleeding acute November 13, 2024 1:41pm IBS (irritable bowel syndrome) acute January 25, 2025 9:59am [facility] Work Phone: 1(474) 964-113911-19-2024 Evaluation note* Diagnosis Onset Date Resolution Status Admit Date Atrial fibrillation acute 2023 2:19pm Hypercholesterolemia acute 2023 2:19pm PVC (premature ventricular contraction) acute August 15, 2 024 2:19pm Screening PSA (prostate spec ific antigen) acute August 15 2 024 2:19pm Weakness of left hand acute Jul 2:19pm Wellness examination acute 2023 2:19pm Hematochezia acute October 1:41pm Rectal bleeding acute November 13, 2024 1:41pm [facility] Work Phone: 1(221) 554-782802-01-2024 Evaluation note* Encounter Date Diagnosis Assessment Notes Treatment Notes Treatment Clinical Notes 01 Feb, 2024 Acute right-sided low back pain with right-sided sciatica (ICD-10 - M54.41) ROM exercises, heat/ice and Voltaren Gel. XR if no improvement Consider PT Initiate tapering steroids to see if improves pain Oct, Acute right hip pain (ICD-10 - M25.551) ROM intact and nontender over bursa. Continue ROM, stretching exercises, ice/heat and Voltaren Gel. XR if no improvement [facility] Other 06-14-2023 Evaluation note* Encounter Date Diagnosis Assessment Notes Treatment Notes Treatment Clinical Notes Feb, Seasonal allergic rhinitis due to pollen (ICD-10 - J30.1) [facility] Other 02-21-2023 Evaluation note* Encounter Date Diagnosis Assessment Notes Treatment Notes Treatment Clinical Notes Oct, Seasonal allergic rhinitis due to pollen (ICD-10 - J30.1) [facility] Other 12-27-2021 NotePROCEDURE: XR TIB_FIB LT 2V COMPARISON: None. HISTORY: Unspecified fall FINDINGS: BONES:Lucency identified through the mid diaphysis of the fibula on image #3 not definitively extending to the cortex. The patient does not have pain in this region and a vascular groove or artifact is favored. SOFT TISSUES:Soft tissue swelling anterior mid lower leg EFFUSION:None visible. OTHER: Negative. IMPRESSION: Soft tissue swelling, no definite acute fracture Electronically authenticated by: KARSTEN ADORNO Date: 2021-09-22 12:40[facility] noteNo assessment information availableC[facility] Work Phone: Evaluation note* Diagnosis Onset Date Resolution Status Admit Date Atrial fibrillation acute Novem eugenio 2023 2:19pm Hypercholesterolemia acute Nove mber 2023 2:19pm Lumbar spondylosis acute Novemb er 2023 2:19pm PVC (premature ventricular contraction) acute August 15, 2 024 2:19pm Screening PSA (prostate spec ific antigen) acute August 15, 2 024 2:19pm Wellness examination acute Nove mber 2023 2:19pm [facility] Work Phone: History general Narrative - Reported* Type Description Date Medical History AF (paroxysmal atrial fibrillati on) Medical History Cholelithiases Medical History Lumbar spondylolysis Medical History Low back pain with radiation Medical History Plaque psoriasis Medical History Mild obesity Medical History BPH (benign prostatic hyperplasi a) Medical History Elevated prostate specific antig en [PSA] Medical History Herpes zoster with other complic ation Medical History Left varicocele Medical History Hyperlipidemia type II Medical History Premature ventricular contractio n Medical History Seasonal allergic rhinitis due t o pollen Medical History Lumbar spondylosis with myelopat hy Surgical History Colonoscopy 11/2019 Surgical History 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 In some cases, this may be from a few hours to a day. Walking may help relieve the discomfort. - If you have polyp(s) removed you may note some minor bloody discharge after your first bowel movements. - You should begin to recover from anesthesia within 1 hour of the procedure, however may feel groggy for the next 24 hours. DO's AND DON'Ts: - Call your doctor right away if you have a hard abdomen, severe pain, are passing lots of bright red blood or clots. - Call your doctor if you develop any rashes, hives or difficulty breathing. - Let your doctor know if you have not had a bowel movement by 3 days after your procedure. - If you take 81 mg aspirin for your heart it is safe to resume this medication. - If you take other blood thinner medications your doctor will instruct you when these can safely be resumed. - Do NOT drive for 24 hours. - Do NOT operate machinery such as power tools, lawn mowers, snow blowers, sewing machines, etc. for 24 hours. - Avoid alcoholic beverages and drugs for allergies, nerves, or sleep. - Do NOT stay alone. Do NOT leave your child unattended. - Do NOT make important personal or business decisions or sign any legal documents. - Eat solid foods and drink liquids in smaller amounts than usual until normal appetite returns. If you should experience an upset stomach, liquids high in sugar content (soda, Sam-Aid, non-acid juices) are recommended. - You can resume normal activities tomorrow. FOLLOW UP & RECOMMENDATIONS: -The GI office will schedule you a follow-up appointment. -Notify the doctor if you have any problems. -You need a repeat colonoscopy in 10 years. -Follow up with PCP. -Office number [phone].[facility] Work Phone: Assessments Diagnosis PAROXYSMAL SUPRAVENTRICULAR TACHYCARDIA: adenosine sensitive, short R-P narrow complex tachycardia Paroxysmal tachycardia, unspecified Obesity, Class I, BMI 30-34.9 Obesity, unspecified Premature ventricular contractions (PVCs) (VPCs) Other premature beats Summary Purpose Family History Relationship Condition Age at Onset Recorded Date/T ana rosa maternal grandmother Myocardial infarction Unknown father Atrial fibrillation Unknown mother Atrial fibrillation Unknown Advance Directives Advance Directive Response Recorded Date/ Time Advance Directives No April 13 3:42pm Advance Directive Response Recorded Date/ Time Advance Directives No April 13 2:42pm Chief Complaint and Reason for Visit Chief Complaint Amb Documentation allergy shot Chief Complaint Kenalog shot Chief Complaint Admit Date Kenalog shot July 27, 2024 1 1:05am CC Adult Risk Stratification August 112023 9:26am Wellness August 15, 2024 2:19pm Reason for Visit Admit Date Atrial fibrillation August 15, 2024 2:19pm Hypercholesterolemia August 15, 2024 2:19pm Lumbar spondylosis August 15, 2024 2:19pm PVC (premature ventricular contraction) August 15, 2024 2:19pm Screening PSA (prostate specific antigen ) August 15, 2024 2:19pm Wellness examination August 15, 2024 2:19pm Chief Complaint Admit Date Wellness August 15, 2024 2:19pm R29.898 September 06, 2024 12:06pm Amb Documentation November 07, 2024 10:06am TB[facility]: abd pain/blood in stool November 132024 1:41pm Reason for Visit Admit Date Atrial fibrillation August 15, 2024 2:19pm Hypercholesterolemia August 15, 2024 2:19pm PVC (premature ventricular contraction) August 15, 2024 2:19pm Screening PSA (prostate specific antigen ) August 15, 2024 2:19pm Weakness of left hand August 15 2:19pm Wellness examination August 15, 2024 2:19pm Hematochezia November 13, 2024 1:41pm Rectal bleeding November 13, 2024 1:41pm Chief Complaint Admit Date Amb Documentation November 07, 2024 10:06am TBH: abd pain/blood in stool November 132024 1:41pm rectal bleeding December 07, 2024 9:1 8am Reason for Visit Admit Date Carpal tunnel syndrome on both sides Feb ruary 2024 1:41pm Cholelithiasis November 13, 2024 1:41pm Hypercholesterolemia November 13, 2024 1:41pm Hypertension November 13, 2024 1:41pm Obesity November 13, 2024 1:41pm PVC (premature ventricular contraction) November 13, 2024 1:41pm Rectal bleeding November 13, 2024 1:41pm Chief Complaint Admit Date Amb Documentation November 07, 2024 10:06am TBH: abd pain/blood in stool November 132024 1:41pm rectal bleeding December 07, 2024 9:1 8am rectal bleeding December 07, 2024 10: 16am FOLLOW UP COLON / IBS January 25, 2025 9:59 am Reason for Visit Admit Date Carpal tunnel syndrome on both sides Feb ruary 2024 1:41pm Cholelithiasis November 13, 2024 1:41pm Hypercholesterolemia November 13, 2024 1:41pm Hypertension November 13, 2024 1:41pm Obesity November 13, 2024 1:41pm PVC (premature ventricular contraction) November 13, 2024 1:41pm Rectal bleeding November 13, 2024 1:41pm IBS (irritable bowel syndrome) January 25, 2025 9:59am Additional Source Comments Source Comments (unrecognize d section and content) In the event this informatio n is protected by the Federal Confidentiality of Alcohol and Drug Abuse Patient Records regulations: The Federal rules restrict any use of the information to criminally investigate or prosecute any alcohol or drug abuse patient.[facility] CenterIn the event this information is protected by the Federal Confidentiality of Alcohol and Drug Abuse Patient Records regulations: The Federal rules restrict any use of the information to criminally investigate or prosecute any alcohol or drug abuse patient.[facility] Reason for Visit (unrecogniz ed section and content) Reason Comments Results Status Reason Specialty Diagnoses / Procedures Referred By Contact Referred To Contact Closed CARD LAB [facility] Diagnoses echo Procedures ECHO Tanner Brown [address] [place] [address] Card Lab [facility] [place] [address] [place] [address] Telephone Encounter - Tanner Brown - 11/01/2020 10:54 PM EST Miscellaneous Notes (unrecog nized section and content) Please let Mr. Rhoades know that the echocardiogram testing showed no significant abnormalities, looked good. Tanner Brown MD November 01, 2020 10:54 PM documented in this encounter (unrecognized sect ion and content) No Status Records FoundNo Status Records FoundNo Status Records Found INFORMATION SOURCE (unrecogn ized section and content) DATE CREATED AUTHOR 11/04/2020 [facility] DATE CREATED AUTHOR AUTHOR'S ORGANIZ ATION 04/14/2022 [facility] DATE CREATED AUTHOR AUTHOR'S ORGANIZ ATION 12/19/2024 [facility] Care Teams (unrecognized sec tion and content) Team Status: Active Member Role Status Dates Sarwat Way DO Primary Care Provider Active Team Status: Active Member Role Status Dates Sarwat Way DO Primary Care Provider Active Start: November 03, 2024 Patricia Eason PA-C Attending Provider Active Start: November 03, 2024 Team Status: Active Member Role Status Dates Sarwat Way DO Primary Care Provider Active Start: November 07, 2024 Elizabet Choi CMA Attending Provider Active Start: November 07, 2024 Team Status: Inactive Member Role Status Dates Sarwat Way DO Primary Care Provide r, Attending Provider Active Start: November 13, 2024 End: November 13, 2024 Team Status: Inactive Member Role Status Dates Sarwat Way DO Primary Care Provider Active Start: December 07, 2024 End: December 07, 2024 Iván Mcnulty MD Attending Provider Active S tart: December 07, 2024 End: December 07, 2024 Team Status: Inactive Member Role Status Dates Sarwat Way DO Primary Care Provide r, Attending Provider Active Start: July 27, 2024 End: July 27, 2024 Team Status: Active Member Role Status Dates Sarwat Way DO Primary Care Provider Active Start: March 21, 2024 Tereza Saldivar LPN Attending Provider Active St art: March 21, 2024 Team Status: Inactive Member Role Status Dates Sarwat Way DO Primary Care Provider Active Start: April 13, 2024 End: April 13, 2024 Shalonda Glaser APRN [employer] Attending Provider Act chad Start: April 13, 2024 End: April 13, 2024 Team Status: Active Member Role Status Dates Sarwat Way DO Primary Care Provide r, Attending Provider Active Start: August 11, 2024 Team Status: Inactive Member Role Status Dates Sarwat Way DO Primary Care Provide r, Attending Provider Active Start: August 15, 2024 End: August 15, 2024 Team Status: Active Member Role Status Dates Sarwat Way DO Primary Care Provide r, Other Provider Active Start: September 06, 2024 José Miguel Álvarez MD Attending Provider Active Start: September 06, 2024 Team Status: Active Member Role Status Dates Sarwat Way DO Primary Care Provider Active Start: December 07, 2024 Iván Mcnulty MD Attending Provider, Other Provider Active Start: December 07, 2024 Team Status: Inactive Member Role Status Dates Sarwat Way DO Primary Care Provider Active Start: January 25, 2025 End: January 25, 2025 Catarino Faye APRN Attending Provider Active Start: January 25, 2025 End: January 25, 2025 Goals (unrecognized section and content) Goals may be documented in a n alternate section FOR RECORDS PERTAINING TO PATIENTS WHO ARE OR HAVE BEEN ENROLLED IN A CHEMICAL DEPENDENCY/SUBSTANCEABUSE PROGRAM, SOME INFORMATION MAY BE OMITTED. This clinical summary was aggregated from multiple sources. Caution should be exercised in using it in the provision of clinical care. This summary normalizes information from multiple sources, and as a consequence, information in this document may materially change the coding, format and clinical context of patient data. In addition, data may be omitted in some cases. CLINICAL DECISIONS SHOULD BE BASED ON THE PRIMARY CLINICAL RECORDS. [facility] [employer] [facility]. provides no warranty or guarantee of the accuracy or completeness of information in this document.
[2025-02-02] MEDS: ADACEL DIPH,PERTUSS(ACELL),TET VAC/PF 0.5 ML ADULT SYRINGE IM (17:59)
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
== END 2025-02-02 18:24 | disposition home or self-care (01) ==
PROVIDERS: Emergency Provider Emergency Medicine; PCP Internal Medicine
DX: S00.03XA Contusion of scalp, initial encounter (principal); S60.312A Abrasion of left thumb, initial encounter; S70.211A Abrasion, right hip, initial encounter; S09.8XXA Other specified injuries of head, initial encounter; S50.811A Abrasion of right forearm, initial encounter; V28.49XA Other motorcycle driver injured in noncollision transport accident in traffic accident, initial encounter; S00.01XA Abrasion of scalp, initial encounter; Z23 Encounter for immunization
CPT/HCPCS: 90471; 90715; 99284

== ENCOUNTER 2025-05-02 12:30 | Inpatient (IN) | payer OTHER, SELFPAY ==
--- OUTSIDE RECORDS SUMMARY | 2024-08-17 11:15 | XMS_ITS ---
Author Organization [facility] Address [address] [place] [address] Care Team Providers Care Derrick Barge Operator Name Role Phone STUART CARVALHO DO Primary Care Provider Manuel Gleason [phone] REASON FOR VISIT RIGHT KNEE, PEH, MENISCUS TEAR Encounters Encounter Location Date Provider Diagnosis [facility] [address] [place] [phone] 08/17/2024 Manuel Cook Pain, joint, knee, right M25.561 Assessments Encounter Date Diagnosis (ICD Code) Assessment Notes Treatment Notes Treatment Clinical Notes Section Notes 08/17/2024 Pain, joint, knee, right (ICD-10 - M25.561) Plan Of Treatment Next Appt Details Follow Up: 08/22, Reason: Progress Notes * RAMAN FINNHANDOB:1970 (55 yo M)Acc No.[id number]:08/17/2024 MRI Patient: MAYRA CHI Provider: Serge Cook MD :1970 A ge:54 Y S ex:Male Date:08/17/2024 Address:[address] [id number] Pcp:STUART CARVALHO DO Subjective: * Chief Complaints: [...] Electronic signature of Ankit Cook MD on 05/02/2025 at 12:43 PM EDT Sign off status: Pending * Provider: Serge Cook MD Date: 10/17/2023 Generated for Deja acosta/Glenn/Génesis on: 0 05/02/2025 12:43 PM EDT
[2025-05-02] VITALS (34 sets, daily range): BP systolic 80–193; BP diastolic 55–106; PULSE 70–161; TEMP 36.5–36.9; O2SAT 95–100; BMI 33.9; BMI 33.5
--- NOTE | 2025-05-02 12:43 | ECG_ITS ---
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 Measurements Intervals Wana Rate: 136 P: -[id number] MT: -57051 QRS: 35 QRSD: 76 T: 62 QT: 288 QTc: 367 Interpretive Statements 17033 Atrial fibrillation with rapid ventricular response 3434 Septal myocardial infarction, age undetermined 9150 abnormal ECG Compared to ECG 10/11/2020 05:19:31 Myocardial infarct finding now present Electronically Signed On 05-02-2025 22:00:17 EDT by SHERRY LINK M.D.
--- OUTSIDE RECORDS SUMMARY | 2025-05-02 12:43 | XMS_ITS | Patient Health Record ---
Author Organization [facility] Address [address] [place] [address] Care Team Providers Care Donor Specialist Name Role Phone STUART CARVALHO DO Primary Care Provider Manuel Gleason Unavailable [phone] Results Component Value Reference Range Notes PEH Knee right, [id number] -[id number] Reviewed date:08/10/2024 09:32:09 AM Interpretation: Performing Lab: Notes/Report: MRI RIGHT KNEE W/O CONTRAST Reviewed date:09/29/2024 10:25:08 AM Interpretation: Performing Lab: Notes/Report: Reason For Referral Reason AETNA ........... MRI RIGHT KNEE Diagnosis 1 Pain, joint, knee, r ight (M25.561) Referral Organization [facility] Referring Provider First Name Manuel Referring Provider Last Name Joyce Referring Provider Speciality Orthopedic Surgery Referred Organization 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) Active confirmed Encounters Encounter Location Date Provider Diagnosis [facility] [address] [place] [address] 08/17/2024 Manuel Joyce Pain, joint, knee, right M25.561 [facility] [address] [facility] [place] [address] 08/08/2024 Manuel Joyce Pain, joint, knee, right M25.561 and Chondromalacia, right knee M94.261 [facility] [address] [place] [address] 08/22/2024 Manuel Joyce Chondromalacia, righ t knee M94.261 Assessments Encounter Date Diagnosis (ICD Code) Assessment Notes Treatment Notes Treatment Clinical Notes Section Notes 08/08/2024 Pain, joint, knee, right (ICD-10 - M25.561) torn medial meniscus, right knee 08/17/2024 Pain, joint, knee, right (ICD-10 - M25.561) 08/22/2024 Chondromalacia , right knee (ICD-10 - M94.261) 1. Chondromalac ia, right knee. 2. Possible gouty changes, right knee 08/08/2024 Chondromalacia , right knee (ICD-10 - M94.261) torn medial meniscus, right knee 08/08/2024 Other patient is felt to have a torn medial meniscus, right knee. We'll obtain an MRI scan for further evaluation and see him back in follow-up after the scan is completed. torn medial meniscus, right knee 08/22/2024 Other findings were discussed with the patient. He was offered a cortisone injection and declined. He is going to treat this conservatively and were seen him back in the office as needed. 1. Chondromalac ia, right knee. 2. Possible gouty changes, right knee Plan Of Treatment No Information Insurance Providers Payer Name Payer Address Payer Phone Subscriber Number Group Number Insured Name Patient Relationship to Insured Coverage Start Date Coverage End Date Aetna [address] [place] [phone] [id number] MAYRA FINN Self - patient is the insured [employer] [address] [place] [address] [id number] ANNETTE FINN Spouse - patient is the spouse of the insured
--- OUTSIDE RECORDS SUMMARY | 2025-05-02 12:43 | XMS_ITS | Clinical Summary ---
Author Organization [employer] Address [facility] [id number] [address] [place] [address] Care Team Providers Care Bodywork Therapist Name Role Phone Sarwat Way Primary Care Provider [phone] Allergies No known active allergies Medications No known medications Active Problems Problem Noted Date Diagnosed Date Calculus of gallbladder with out cholecystitis without obstruction 08/26/2020 Diarrhea 08/26/2020 Status post left inguinal hernia repair, follow- up exam 12/19/2019 Inguinal hernia of left side without obstruction or gangrene 12/05/2019 Encounter for screening colonoscopy 12/05/2019 Family History Medical History Relation Name Comments No Known Problems Daughter No Known Problems Father No Known Problems Mother No Known Problems Sister No Known Problems Son Relation Name Status Comments Daughter Alive Father Alive Mother Alive Sister Alive Son Alive Social History Tobacco Use Types Packs/Day Years Used Date Smoking Tobacco: Former Cigarettes 0.5 5 Smokeless Tobacco: Never Alcohol Use Standard Drinks/Week Comments Not Currently 0 (1 standard drink = 0.6 oz pur e alcohol) Childcare Answer Date Recorded Childcare Unknown 03/08/2019 Employment Answer Date Recorded Employment Unknown 03/08/2019 Purpose - Life Answer Date Recorded Purpose and direction in life Unknown Sex and Gender Information Value Date Recorded Sex Assigned at Not on file Legal Sex Male 12:06 PM EDT Gender Identity Not on file Sexual Orientation Not on file Last Filed Vital Signs Vital Sign Reading Time Taken Comments Blood Pressure 120/80 08/26/2020 3:17 PM EST Pulse 80 12/19/2019 9:15 AM EDT Temperature 36.1 C (96.9 F) 08/26/2020 3:17 PM EST Respiratory Rate 18 12/13/2019 10:1 9 AM EDT Oxygen Saturation 99% 12/13/2019 10: 14 AM EDT Inhaled Oxygen Concentration - - Weight 118.1 kg (260 lb 6.4 oz) 08/26/2020 3:17 PM EST Height 182.9 cm (6') 08/26/2020 3:17 PM EST Body Mass Index 35.32 08/26/2020 3:17 PM EST Plan of Treatment Health Maintenance Due Date Last Done Comments Depression Screening 1984 Tobacco Screening 1984 Adult BMI Screening 02/13/1990 DTaP,Tdap and Td Vaccines (1 - Tdap) 02/13/1991 Zoster (Shingles) Vaccine (1 of 2) 02/13/2022 Influenza Vaccine 05/28/2025 Colonoscopy 12/07/2029 12/08/2019 Medical Devices Implanted Type Area Cornice Maker Device Identifier Shelf Expiration Date Model / Serial / Lot Mesh Brd Preshape Walker 2x4 - [id number] - [id number] Implanted:Qty: 1 on 12/13/2019 by Don Machado MD at [facility] Mesh Left: Inguinal [employer] 02/22/2024 [id number] / [id number] / [id number] Insurance [employer] Care Teams Bodywork Therapist Relationship Specialty Start Date End Date Sarwat Way DO [address] [place] [address] PCP - General Internal Medicine 12/04/19
--- OUTSIDE RECORDS SUMMARY | 2025-05-02 12:43 | XMS_ITS | Clinical Summary ---
Author Organization [facility] Address [address] [place] [address], [address] [place] [address] Care Team Providers Care Field Property Loss Specialist Name Role Phone Unavailable Primary Care Provider Unavailabl e Social History Tobacco Use Types Packs/Day Years Used Date Smoking Tobacco: Never Assessed Sex and Gender Information Value Date Recorded Sex Assigned at Not on file Legal Sex Male 1:24 PM EST Gender Identity Not on file Sexual Orientation Not on file Plan of Treatment Not on file
--- OUTSIDE RECORDS SUMMARY | 2025-05-02 12:43 | XMS_ITS | Clinical Summary ---
Author Organization [facility] Address [address] [place] [address] Care Team Providers Care Torch Shearer Name Role Phone Unavailable Primary Care Provider Unavailabl e Social History Tobacco Use Types Packs/Day Years Used Date Smoking Tobacco: Never Assessed Sex and Gender Information Value Date Recorded Sex Assigned at Not on file Legal Sex Male 9:50 PM EDT Gender Identity Not on file Sexual Orientation Not on file Last Filed Vital Signs Vital Sign Reading Time Taken Comments Blood Pressure 132/82 08/10/2019 12:00 PM EST Pulse - - Temperature - - Respiratory Rate - - Oxygen Saturation - - Inhaled Oxygen Concentration - - Weight 109 kg (240 lb) 08/10/2019 12:00 PM EST Height 182.9 cm (6') 08/10/2019 12:00 PM EST Body Mass Index 32.55 08/10/2019 12:00 PM EST Plan of Treatment Not on file
--- OUTSIDE RECORDS SUMMARY | 2025-05-02 12:43 | XMS_ITS | Clinical Summary ---
Author Organization [facility] Address [address] [place], [place] [address] Care Team Providers Care Ranch Hand Supervisor Name Role Phone SeamusSarwat Karolyn PATTERSON Primary Care Provider [phone] Ab Brown MD Unavailable [phone] Allergies No known active allergies Medications triamcinolone acetonide(KENALO G-40 INJECTION 40 MG/ML SUSP FOR INJECTION) Approximately every month 0 10/07/19 08 Active COMPOUNDED PRESCRIPTION Unknown steroid cream for psoriasis used up to twice daily 0 10/07/19 08 Active OBCYLRBE-CQDF-WW N-FA-LUTEIN 18 MG-0.4 MG-250 MCG TAB Take one(1) tablet daily. 0 10/07/19 08 Active ALPRAZolam (XANAX) 0.5 mg ORAL tablet Take 1 tablet by mouth as needed. 0 02/19/20 11 Active clobetasol (TEMOVATE) 0.05 % cream Apply 1 application to affected area twice daily as needed. APPLY TO AFFECTED AREA 02/12/20 20 Active FISH OIL-DHA-EPA ORAL Take 1 capsule by mouth once daily. Active GARLIC ORAL Take 1 capsule by mouth once daily. Active KELP ORAL Take 1 capsule by mouth once daily. Active cholecalciferol, vitamin D3, (VITAMIN D3 ORAL) Take 1 capsule by mouth once daily. Active calcium/mag/miles min D2/Zn/min (XUAN-MAG ZINC II ORAL) Take 1 capsule by mouth once daily. Active celecoxib (CELEBREX) 200 mg capsule TAKE 1 TABLET BY MOUTH EVENING PRIOR TO OPERATION, 1 TABLET MORNING OF OPERATION, THEN 1 TWICE DAILY 12/05/19 20 Active HYDROcodone-acet aminophen (NORCO) 5-325 mg per tablet TAKE 1 TABLET BY MOUTH EVERY 6 HOURS NEEDED FOR PAIN *MAX 4 TABLETS PER DAY* 12/13/19 20 Active ELIQUIS 5 mg tab(s) Take 5 mg by mouth twice daily. 10/12/19 21 Active metoprolol tartrate, short acting, (LOPRESSOR) 25 mg tablet Take 25 mg by mouth twice daily with meals. 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 60 diet contr oled atrial fibrillation Father Heart Maternal Grandfather pacemaker Arrythmias Mother Arthritis Mother a. 60 varicose veins Mother No Known Problems Sister Relation Status Comments Father Alive Maternal Grandfather Maternal Grandmother Mother Alive Paternal Grandfather Paternal Grandmother Sister Alive Social History Tobacco Use Types Packs/Day Years Used Date Smoking Tobacco: Former Cigarettes 0.5 19.7 1 - 06/2009 Smokeless Tobacco: Never Alcohol Use Standard Drinks/Week Comments Not Currently 0 (1 standard drink = 0.6 oz pur e alcohol) beer once a month Area Deprivation Index Answer Date Brent rded National Score (1-100), lower number is lower ri sk Not on file 09/03/2020 State Score (1-10), lower number is lower risk N ot on file 09/03/2020 Data from: https://www.neighborhoodatlas.medicine.[facility].edu/. Last address used for calculation Not on file 09/03/2020 Sex and Gender Information Value Date Recorded Sex Assigned at Not on file Legal Sex Male 9:32 AM EST Gender Identity Not on file Sexual Orientation Not on file Last Filed Vital Signs Vital Sign Reading Time Taken Comments Blood Pressure 132/70 03/13/2020 1:13 PM EDT Pulse 86 03/13/2020 1:13 PM EDT Temperature 36.7 C (98 F) 05/01/2011 8:17 AM EDT Respiratory Rate 16 05/01/2011 8:17 AM EDT Oxygen Saturation 98% 03/13/2020 1:13 PM EDT Inhaled Oxygen Concentration - - Weight 108.9 kg (240 lb) 03/13/2020 1:13 PM EDT Height 182.9 cm (6') 03/13/2020 1:13 PM EDT Body Mass Index 32.55 03/13/2020 1:13 PM EDT Plan of Treatment Health Maintenance Due Date Last Done Comments Anxiety Screening 02/13/1990 Depression Screening 02/13/1990 HIV Screening 02/13/1990 Hepatitis C Screening 02/13/1990 DTaP,Tdap,Td Vaccine (1 - Tdap) 02/13/1991 Hepatitis B Vaccine (1 of 3 - 19+ 3-dose series) 02/13/1991 Lipid Screening 02/13/2007 CT Colonography 02/13/2017 Cologuard (FIT-DNA) 02/13/2017 Colonoscopy 02/13/2017 Colorectal Cancer Screening 02/13/2017 Fecal Occult Blood 02/13/2017 Sigmoidoscopy 02/13/2017 Pneumococcal Vaccine: 50+ (1 of 1 - PCV) 02/13/2022 Shingrix Vaccine (1 of 2) 02/13/2022 Diabetes Screening 12/07/2022 12/08/2019, 11/25/2007 Influenza Vaccine (#1) 2025 Procedures Procedure Name Priority Date/Time Associated Diagnosis Comments BASIC METABOLIC PANEL STAT 11/25/2007 7:15 AM EST PAROXYSMAL SUPRAVENTRICULAR TACHYCARDIA: adenosine sensitive, short R-P narrow complex tachycardia from Last 3 Months or Most Recently Relevant to Health Maintenance Results * BASIC METABOLIC PNL (11/25/2007 7:15 AM EST) Glucose 94 65 - 100 mg/dL [facility] BUN 17 10 - 25 mg/dL [facility] Creatinine 0.8 0.7 - 1.4 mg/dL [facility] Sodium 137 135 - 146 mmol/L [facility] Potassium 4.0 3.5 - 5.0 mmol/L [facility] Chloride 102 98 - 110 mmol/L [facility] CO2 23 23 - 32 mmol/L [facility] Anion Gap 12 0 - 15 mmol/L [facility] Calcium 9.4 8.5 - 10.5 mg/dL [facility] Blood specimen (specimen) BLOOD SPECIMEN / Unknown 11/25/2007 7:15 AM EST us Ab Brown MD LABORATORY Final Res ult [facility] [address] [place] [address] from Last 3 Months or Most Recently Relevant to Health Maintenance Insurance [facility] SUPERMED PPO Member Subscriber Plan / Payer (Ef fective 2015-Present) Name:MAYRA RHOADES Relation to Subscriber:Spouse Name:SYBIL RHOADES Date of :1976 (Home) Address: [address] [place] [id number] Payer ID:Not on file Type:PPO Address: [address] [place] [id number] Care Teams Ranch Hand Supervisor Relationship Specialty Start Date End Date Sarwat Way DO PCP - General Internal Medicine 6/17/20 Ab Brown MD [address] [address] Specialty Field Artillery Cannoneer Cardiology 09/10/20
--- NOTE | 2025-05-02 12:47 | XR_ITS ---
[place] [id number] Patient Name: MAYRA FINN MRN: [id number] date: 1970 Sex: M Assigned Patient Location: ER Current Patient Location: ER Accession/Order Number: [id number] Exam Date: 05/02/2025 13:37 Report Date: 05/02/2025 13:39 At the request of: TRAVIS SOSA MD Procedure: XR chest 1V Single view chest: CLINICAL HISTORY: A-fib, RVR COMPARISON: Chest 10/11/2020 FINDINGS: The heart is normal in size. The lungs are clear. The pulmonary vasculature is normal. Mediastinum and hilar regions are unremarkable. No pleural effusions are seen. Visualized bones are intact. XR/XR chest 1V IMPRESSION: NEGATIVE CHEST. Impression dictated by: Anjel Roca Jr., D.O. 05/02/2025 1:39 PM Dictation Location: [place] [address] Electronically authenticated by: [id number] Y Date: 05/02/2025 13:39
--- NOTE | 2025-05-02 12:50 | ED.GENADUL1 ---
HPI HPI - General Adult General Chief complaint: Chest Pain Stated complaint: PALPITATIONS Time Seen by Provider: 05/02/25 12:35 Source: patient Mode of arrival: walk-in Limitations: no limitations History of Present Illness HPI narrative: 55-year-old male presented to the emergency department for palpitations. He has not been feeling well for a few days and felt like his heart rate was fast today. It was irregular for a few days. He has a history of atrial fibrillation but is not in chronic A-fib. He has had A-fib when he has had COVID but he has had A-fib at other times as well. He is also had some diarrhea recently. Does not complain of a fever or cough. No syncope or presyncope. Related Data Home Medications ?Medication ?Instructions ?Recorded ?Confirmed clobetasol 0.05 % topical cream 1 applic topical DAILY 11/03/24 05/02/25 Allergies Allergy/AdvReac Type Severity Reaction Status Date / Time No Known Drug Allergies Allergy Verified 05/02/25 12:38 Opioid HPI Opioid Management Most Recent Opioid Data: Last Pain Scale 3 02/02/25, 18:07 Review of Systems ROS Narrative A ten point review of systems is negative except as noted above. PFSH PFSH Social History Little interest or pleasure in doing things: not at all Feeling down, depressed, or hopeless: not at all Exam Narrative Exam Narrative: Nurses note and vital signs reviewed and patient is not hypoxic. General: The patient appears in no apparent distress. Skin: Warm, dry, no pallor noted. There is no rash noted. Head: Normocephalic, atraumatic Eye: Normal conjunctiva, no drainage Ears, Nose, Mouth, and Throat: oral mucosa is moist. Nares patent. Cardiovascular: Irregularly irregular and tachycardic Respiratory: Patient is in no distress, no accessory muscle use, lungs are clear to auscultation, no wheezing, rales or rhonchi Back: non-tender GI: Soft and nontender Musculoskeletal: The patient has no evidence of calf tenderness, no pitting edema, symmetrical pulses noted bilaterally Neurological: A&O, normal speech Psychiatric: Cooperative Constitutional Vital Signs, click to edit/add: Last Vital Signs Temp 97.7 F 05/02/25 12:34 Pulse 78 05/02/25 13:50 Resp 13 05/02/25 13:50 BP 133/83 05/02/25 13:30 Pulse Ox 95 05/02/25 13:50 O2 Del Method Room Air 05/02/25 12:34 Course Vital Signs Vital signs: Vital Signs Temperature 97.7 F 05/02/25 12:34 Pulse Rate 138 H 05/02/25 12:34 Respiratory Rate 16 05/02/25 12:34 Blood Pressure 164/95 H 05/02/25 12:34 Pulse Oximetry 99 05/02/25 12:34 Oxygen Delivery Method Room Air 05/02/25 12:34 Temperature 97.7 F 05/02/25 12:34 Pulse Rate 78 05/02/25 13:50 Respiratory Rate 13 05/02/25 13:50 Blood Pressure 133/83 05/02/25 13:30 Pulse Oximetry 95 05/02/25 13:50 Oxygen Delivery Method Room Air 05/02/25 12:34 Medical Decision Making MDM Narrative Medical decision making narrative: The patient presented with atrial fibrillation with RVR. He was given IV Cardizem bolus and then placed on a drip. Laboratory analysis is negative. The patient has a history of A-fib but not chronically. He is being admitted. Findings were discussed with the patient and his . Differential Diagnosis Differential Diagnosis: Atrial fibrillation, atrial flutter, electrolyte disturbance Lab Data Lab results reviewed: Yes I reviewed the patient's lab results Labs: Lab Results 05/02/25 05/02/25 Range/Units 12:40 13:23 WBC 9.3 (4.0-11.0) 10^3/uL RBC 5.96 (4.70-6.10) 10^6/uL Hgb 20.3 H (14.0-18.0) g/dL Hct 55.2 H (42.0-54.0) % MCV 92.6 (80.0-94.0) fL MCH 34.1 H (25.9-34.0) pg MCHC 36.8 H (29.9-35.2) g/dL RDW 12.4 (11.0-15.0) % Plt Count 260 (150-450) 10^3/uL MPV 10.0 (9.5-13.5) fL Neut % (Auto) 65.5 (43.0-75.0) % Lymph % (Auto) 23.4 (20.5-60.0) % [place] % (Auto) 9.8 (1.7-12.0) % Eos % (Auto) 0.4 L (0.9-7.0) % Baso % (Auto) 0.4 (0.2-2.0) % Neut # (Auto) 6.1 (1.4-6.5) 10^3/uL Lymph # (Auto) 2.2 (1.2-3.8) 10^3/uL [place] # (Auto) 0.9 H (0.3-0.8) 10^3/uL Eos # (Auto) 0.0 (0.0-0.7) 10^3/uL Baso # (Auto) 0.0 (0.0-0.1) 10^3/uL Abs Immat Gran (auto) 0.05 H (0.00-0.03) 10^3/uL Imm/Tot Granulo (auto) 0.5 (0.0-0.5) % Sodium 138 (136-145) mmol/L Potassium 4.1 (3.5-5.1) mmol/L Chloride 101 (98-107) mmol/L Carbon Dioxide 26.8 (21.0-32.0) mmol/L Anion Gap 14.3 BUN 13.0 (7.0-18.0) mg/dL Creatinine 1.21 (0.70-1.30) mg/dL Est GFR ( Amer) >60 (>=60 mL/min/1.73m^2) Est GFR (Non-Af Amer) >60 (>=60 mL/min/1.73m^2) BUN/Creatinine Ratio 10.7 Glucose 99 (74-106) mg/dL Calcium 9.5 (8.5-10.1) mg/dL Magnesium 1.9 (1.8-2.4) mg/dL Troponin I High Sens 8.1 (4.0-76.1) pg/mL SARS-CoV-2 Ag (CV2AG) Negative (NEGATIVE) Imaging Data Chest x-ray: Radiologist's impression: ITS Impressions Chest X-Ray 05/02/25 12:47 IMPRESSION: NEGATIVE CHEST. Impression dictated by: Anjel Roca Jr., D.O. 05/02/2025 1:39 PM Dictation Location: [place] [address] Electronically authenticated by: [id number] Y Date: 05/02/2025 13:39 ECG Data Attestation: I personally reviewed and interpreted this ECG as follows: (EKG on my interpretation shows atrial fibrillation with a rate of 136) Critical Care Time Critical Care Time Critical Care Time: Yes Total Critical Care Time: 35 Attestation: Due to the high probability of sudden and clinically significant deterioration in the patient's condition he/she required the highest level of my preparedness to intervene urgently I provided critical care time including documentation time, medication orders and management, reevaluation, vital sign assessment, ordering and reviewing of lab tests, ordering and reviewing of x-ray studies, and admission orders. Aggregate critical care time is 35 minutes including only time during which I was engaged in work directly related to his/her care and did not include time spent treating other patients simultaneously. Discharge Plan Discharge Chief Complaint: Chest Pain Clinical Impression: Atrial fibrillation with RVR Patient Disposition: Admitted as Observation Time of Disposition Decision: 14:34 Condition: Fair
[2025-05-02] MEDS: DILTIAZEM HCL 25 MG/5 ML VIAL 20 MG IV (12:59)
[2025-05-02 13:00] LABS: Hematocrit 55.2 % (42.0-54.0); Hemoglobin 20.3 g/dL (14.0-18.0); Immature Granulocytes Abs Auto 0.05 10^3/uL (0.00-0.03); Immature Granulocytes Pct Auto 0.5 % (0.0-0.5); Lymphocytes Absolute Auto 2.2 10^3/uL (1.2-3.8); Mean Corpuscular HGB Conc 36.8 g/dL (29.9-35.2); Mean Corpuscular Hemoglobin 34.1 pg (25.9-34.0); Mean Corpuscular Volume 92.6 fL (80.0-94.0); Platelet Count 260 10^3/uL (150-450); Red Blood Count 5.96 10^6/uL (4.70-6.10); White Blood Count 9.3 10^3/uL (4.0-11.0)
[2025-05-02 13:17] LABS: Anion Gap 14.3; Blood Urea Nitrogen 13.0 mg/dL (7.0-18.0); Calcium 9.5 mg/dL (8.5-10.1); Carbon Dioxide 26.8 mmol/L (21.0-32.0); Chloride 101 mmol/L (98-107); Estimated GFR (African America >60 (>=60 mL/min/1.73m^2); Estimated GFR (Non-African Ame >60 (>=60 mL/min/1.73m^2); Glucose 99 mg/dL (74-106); Magnesium 1.9 mg/dL (1.8-2.4); Potassium 4.1 mmol/L (3.5-5.1); Sodium 138 mmol/L (136-145)
[2025-05-02] MEDS: DILTIAZEM HCL 25 MG/5 ML VIAL 5 MG IV (13:24)
[2025-05-02 14:04] LABS: SARS-CoV-2 Ag NEGATIVE (NEGATIVE)
--- NOTE | 2025-05-02 15:36 | CA_ITS ---
Patient Name: MAYRA FINN MR#: [id number] : 1970 Exam Date: 05/02/2025 Ordering Doctor: EUN LINDO ECHOCARDIOGRAM REPORT PROCEDURE: CA ECHO DOPPLER COMPLETE INDICATIONS: afib COMPARISON: None. DESCRIPTION: COMPLETE ECHOCARDIOGRAM Real-time transthoracic echocardiography with 2D, M-mode, spectral and color flow Doppler performed. QUALITY: Technical quality was good. LEFT VENTRICLE: Normal chamber size. Moderate concentric hypertrophy. Global left ventricular systolic function is normal. LV EF: Estimated left ventricular ejection fraction is normal at 70%. DIASTOLIC: Not adequately assessed due to heart rhythm. ATRIAL SEPTUM: LEFT ATRIUM: Mild dilatation. RIGHT ATRIUM: Mild dilatation. RIGHT VENTRICLE: Normal chamber size. Normal right ventricular systolic function. TRICUSPID VALVE: Normal mobility and thickness. No stenosis with trivial regurgitation. Unable to assess right-sided pressures due to lack of measurable tricuspid regurgitation. MITRAL VALVE: Normal mobility and thickness. No evidence of mitral valve stenosis. There is no mitral annular calcification. Trivial mitral regurgitation. AORTIC VALVE: Normal trileaflet appearance. No visible sclerosis. Normal leaflet mobility. No evidence of aortic valve stenosis. No aortic regurgitation. AORTIC ROOT: Normal diameter and appearance, measuring 3.1 cm. Normal size of the ascending aorta measuring 3.2 cm. PULMONIC VALVE: Normal thickness and mobility. No stenosis. Trivial regurgitation. PERICARDIUM: No evidence of pericardial effusion. IVC: Collapses with inspiration. Normal size. PLEURA: CONCLUSION: 1. Moderate concentric left ventricular hypertrophy with normal systolic function. Estimated LVEF is 70%. 2. Normal right ventricular size and systolic function. 3. Mild biatrial dilatation. 4. No significant valvular dysfunction. 5. Unable to assess right-sided pressures due to lack of measurable tricuspid regurgitation. Adult Echocardiography Procedure Report Left Ventricle LVEDD (3.7 - 5.6 cm): 4.28 cm LVESD (2.2 - 4.0 cm): 2.91 cm LVIVS thickness (0.6 - 1.2 cm): 1.29 cm LVPW thickness (0.5 - 1.0 cm): 1.66 cm e': 0.12 m/s E - e': 7.91 LVOT Max Gradient: 4.06 mm[Hg] LVOT Area (cm2): 1.01 m/s Peak Velocity (LVOT): 1.01 m/s Mean Velocity (LVOT): 0.71 m/s LVOT Diameter 1.88 cm Left Ventricular Ejection Fraction: 70 % Left Atrium LA Volume Index (2D A2C): 41.93 ml/m2 Left Atrium Systolic Dimension: 4.61 cm Mitral Valve Mitral Valve E-Wave Peak Velocity: 0.93 m/s Right Ventricle RV Internal Diastolic Dimension: 3.87 cm Aorta AO Root Diam: 3.14 cm Ascending Ao Diam: 3.25 cm Aortic Valve AoV Area (Peak [place]): 2.31 cm2, 2.49 cm2 AoV Area (VTI): 2.10 cm2, 2.21 cm2 Peak Velocity(Antegrade Flow): 1.12 m/s, 1.30 m/s Peak Gradient(Antegrade Flow): 5.01 mm[Hg], 6.78 mm[Hg] Mean Velocity(Antegrade Flow): 0.74 m/s, 0.95 m/s Mean Gradient(Antegrade Flow): 2.54 mm[Hg], 4.11 mm[Hg] Velocity Time Integral: 21.83 cm, 24.17 cm Tricuspid Valve Pulmonic Valve Mean Gradient: 2.07 mm[Hg], 2.34 mm[Hg], 2.29 mm[Hg] Mean Velocity: 0.66 m/s, 0.71 m/s, 0.74 m/s Peak Velocity: 0.99 m/s Peak Gradient: 4.20 mm[Hg], 3.97 mm[Hg], 3.63 mm[Hg] Right Atrium Right Atrium Systolic Pressure: 74.64 ml, 74.64 ml Dictated by: Kameron Norman M.D. on 05/02/2025 at 18:03 Approved by: Kameron Norman M.D. on 05/02/2025 at 18:06
--- NOTE | 2025-05-02 15:41 | P.IMHP_ITS ---
Internal Medicine - H&P: HPI History of Present Illness Chief complaint: PALPITATIONS Narrative: Mr Rhoades is a 55-year-old male with a past medical history notable for A-fib status post numerous ablations and psoriasis who presents hospital today with a chief complaint of just not feeling well he has a history of A-fib, he says he has breakthrough A-fib roughly once or twice a year, he can tell when he goes out of rhythm fairly easily as he just does not feel well, he denies any chest pain, shortness of breath, palpitations. He does not have any known trigger of A-fib. He had a couple ablations, most recently he is of the last ablation was in 2008, he notes that he has never been on any anticoagulation or blood thinners, he does not believe he has ever been on any antiarrhythmics, when I mention the sotalol, dofetilide, Tikosyn, amiodarone he says his medication names do not sound familiar. Previously he was on metoprolol only but this was subsequently stopped after his ablation. He has not seen his watch crystal edge grinder in [place] in a couple of years he believes. He notes that the last couple days he has had diarrhea and not much oral intake secondary to this. Review of Systems ROS Status of ROS 10 or more systems reviewed and unremark able except as noted in history and below [facility] Medical History (Updated 05/02/25 @ 14:56 by Alpa Jefferson RN) Atrial fibrillation ?I48.91 - Unspecified atrial fibrillation (ICD-10) Social History Little interest or pleasure in doing things: not at all Feeling down, depressed, or hopeless: not at all Meds Home Medications and Allergies Home Medications ?Medication ?Instructions ?Recorded ?Confirmed ?Type clobetasol 0.05 % topical cream 1 applic topical DAILY 11/03/24 05/02/25 History Allergies Allergy/AdvReac Type Severity Reaction Status Date / Time No Known Drug Allergies Allergy Verified 05/02/25 12:38 Exam Narrative Exam Narrative: General: Awake and alert, no acute distress HEENT: Normocephalic, atraumatic, no scleral icterus noted Lungs: Clear to auscultation bilaterally Cardiac: Irregular rate and rhythm, no murmurs appreciated GI: Soft, nontender, regular bowel sounds. Extremities: Active and passive range of motion intact throughout, no edema, scarring from prior episodes of psoriasis with a couple of dry lesions on his left knee Neuro: Cranial nerves II through XII intact, no focal deficits noted Skin: No rashes or lesions, no signs of jaundice Constitutional Vital Signs, click to edit/add: Last Vital Signs Temp 97.7 F 05/02/25 12:34 Pulse 97 H 05/02/25 15:10 Resp 13 05/02/25 15:10 BP 120/93 H 05/02/25 15:01 Pulse Ox 97 05/02/25 15:10 O2 Del Method Room Air 05/02/25 12:34 Internal Medicine - H&P: Reslt Labs Labs: Short CBC 05/02/25 Range/Units 12:40 WBC 9.3 (4.0-11.0) 10^3/uL Hgb 20.3 H (14.0-18.0) g/dL Hct 55.2 H (42.0-54.0) % Plt Count 260 (150-450) 10^3/uL BMP 05/02/25 12:40 Sodium 138 Potassium 4.1 Chloride 101 Carbon Dioxide 26.8 BUN 13.0 Creatinine 1.21 Glucose 99 Calcium 9.5 Assessment and Plan Assessment and Plan (1) Atrial fibrillation with RVR: Assessment and Plan: ? Admit under observation, telemetry status ? He was rate controlled in the emergency room with a Cardizem bolus followed by gtt. ? Upon arrival to the floor, please initiate Cardizem 60 mg 3 times daily ? Communication order placed to start weaning the Cardizem gtt. off approximately 2 hours after his first dose of the oral Cardizem ? Echocardiogram ? His [id number] score is 0, will defer anticoagulation at this point in time ? TSH ordered for the morning ? Cardiology consult placed Plan ? DVT prophylaxis addressed with Lovenox ? Regular diet, ? Full code
[2025-05-02] MEDS: DILTIAZEM HCL 60 MG TABLET PO ×2 (16:17→21:01)
[2025-05-02] MEDS: ENOXAPARIN SODIUM 40 MG/0.4 ML SYRINGE SUBQ (17:18)
[2025-05-03] VITALS (66 sets, daily range): BP systolic 132–159; BP diastolic 96–103; PULSE 70–151; TEMP 36.4–37.1; O2SAT 97–100
[2025-05-03] MEDS: DILTIAZEM HCL 60 MG TABLET PO ×3 (05:15→21:15)
[2025-05-03 06:22] LABS: Hematocrit 53.3 % (42.0-54.0); Hemoglobin 19.2 g/dL (14.0-18.0); Mean Corpuscular HGB Conc 36.0 g/dL (29.9-35.2); Mean Corpuscular Hemoglobin 33.6 pg (25.9-34.0); Mean Corpuscular Volume 93.2 fL (80.0-94.0); Platelet Count 235 10^3/uL (150-450); Red Blood Count 5.72 10^6/uL (4.70-6.10); White Blood Count 7.4 10^3/uL (4.0-11.0)
[2025-05-03 06:39] LABS: Anion Gap 14.7; Blood Urea Nitrogen 12.0 mg/dL (7.0-18.0); Calcium 9.1 mg/dL (8.5-10.1); Carbon Dioxide 25.0 mmol/L (21.0-32.0); Chloride 102 mmol/L (98-107); Estimated GFR (African America >60 (>=60 mL/min/1.73m^2); Estimated GFR (Non-African Ame >60 (>=60 mL/min/1.73m^2); Glucose 99 mg/dL (74-106); Magnesium 1.9 mg/dL (1.8-2.4); Potassium 3.7 mmol/L (3.5-5.1); Sodium 138 mmol/L (136-145)
[2025-05-03 06:52] LABS: TSH W/ REFLEX FT4 4.329 uIU/mL (0.358-3.740)
--- NOTE | 2025-05-03 09:20 | CM.NOTE ---
Rounds made with Dr. Badillo, discussed with pt admission diagnosis, labs, and plan of care. No discharge today. PT and OT will evaluate pt for discharge.
--- NOTE | 2025-05-03 09:30 | CM.NOTE ---
Rounds made with Dr. Badillo, discussed with pt plan of care. Cardiology to consult today for further recommedations.
--- NOTE | 2025-05-03 10:00 | CM.NOTE ---
Pt continues with periods of tachycardia, pt will change to inpatient status.
[2025-05-03 12:35] LABS: Glucose Urine UA NEGATIVE (NEGATIVE)
[2025-05-03] MEDS: METOPROLOL SUCCINATE 100 MG TAB.ER.24H PO (12:39)
--- NOTE | 2025-05-03 13:41 | PM.PN ---
Progress Note: Subjective Subjective Interval history: Seen and evaluated this morning, he is currently laying in bed, he endorses feeling a little better after the IV fluids yesterday evening though again this morning he continues to feel bad. He cannot be more specific than that, he has no specific complaint is overall feels bad. He still has diarrhea. Did discuss with him that he is likely dehydrated and this explains his hemoglobin being elevated, plan to continue with IV fluids today. His had called his production graphic designer in [place], his appointment is made for July, he has not seen his production graphic designer in over 5 years so he is considered a new patient. I asked if he wanted to follow-up here locally with another production graphic designer, he seemed open to that idea. Exam Narrative Exam Narrative: General: Awake and alert, no acute distress HEENT: Normocephalic, atraumatic, no scleral icterus noted Lungs: Clear to auscultation bilaterally Cardiac: Irregular rate and rhythm, no murmurs appreciated GI: Soft, nontender, regular bowel sounds. Extremities: Active and passive range of motion intact throughout, no edema Neuro: Cranial nerves II through XII intact, no focal deficits noted Skin: Darkened discolorations on the anterior aspect of his anterior tibia along with a few psoriatic lesions's. Constitutional Vital Signs, click to edit/add: Last Vital Signs Temp 97.5 F L 05/03/25 11:50 Pulse 97 H 05/03/25 11:58 Resp 15 05/03/25 11:50 BP 132/99 H 05/03/25 10:21 Pulse Ox 100 05/03/25 04:00 O2 Del Method Room Air 05/03/25 04:00 Progress Note: Objective Labs Labs: Short CBC 05/03/25 Range/Units 05:53 WBC 7.4 (4.0-11.0) 10^3/uL Hgb 19.2 H (14.0-18.0) g/dL Hct 53.3 (42.0-54.0) % Plt Count 235 (150-450) 10^3/uL BMP 05/03/25 05:53 Sodium 138 Potassium 3.7 Chloride 102 Carbon Dioxide 25.0 BUN 12.0 Creatinine 0.89 Glucose 99 Calcium 9.1 Urine 05/03/25 Range/Units 09:30 Urine Color Lt. yellow (YELLOW) Urine Clarity Clear (CLEAR) Urine pH 7.0 (5.0-9.0) Ur Specific [place] 1.010 (1.005-1.025) Urine Protein Negative (NEG/TRACE) mg/dL Urine Glucose (UA) Negative (NEGATIVE) mg/dL Progress Note: A&P Assessment and Plan (1) Atrial fibrillation with RVR: Assessment and Plan: ? Rate controlled with Cardizem, gtt. was titrated off overnight and he has been on p.o. Cardizem, grams 3 times daily. ?He continues to be in A-fib though the rate is controlled with this, whenever he stands up and walks around his room his heart rate does increase to 130-160, ? Initiate metoprolol succinate 100 mg daily ? Echocardiogram performed this morning, read pending ? Cardiology on consult ? TSH and free T4 normal (2) Dehydration: Assessment and Plan: Continue with IV fluids, he will receive 2 L of Ringer's lactate today and overnight. (3) Polycythemia: Assessment and Plan: ? This is likely secondary to dehydration, continue with IV fluid resuscitation and recheck CBC tomorrow (4) Diarrhea: Assessment and Plan: ? She complains of diarrhea, minimal abdominal discomfort and normal white count ? Will send stool studies Plan ? DVT prophylaxis addressed ? Regular diet ? Full code
--- NOTE | 2025-05-03 14:55 | CM.NOTE ---
Pt voices he was unable to get into his [employer] until July, will await cardiology consult and recommendations. If needed CM will call office to attempt to move appointment up at discharge. Pt verbalizes understanding.
[2025-05-03] MEDS: ENOXAPARIN SODIUM 40 MG/0.4 ML SYRINGE SUBQ (17:37)
--- NOTE | 2025-05-03 18:30 | P.CACN_ITS ---
History of Present Illness History of Present Illness Consult date: 05/03/25 Requesting physician: EUN LINDO Chief complaint: A fib RVR [place] Narrative: Patient is 55-year-old male with prior history of SVT, status post ablation 2007 and PVCs s/p ablation 2008 in [facility]. He had atrial fibrillation about 5 years ago when he was admitted with COVID infection lasted about 2 to 3 days. He followed with his lute packer or applier at [facility] couple times after that and he stopped. He reports that he was recently noted to have high blood pressure and hyperlipidemia however he is not taking any medications. He also has history of psoriasis and hypogonadism. He denies sleep apnea. He came to the hospital because he has not been feeling well and some fluttering in the heart reminded him with the time when he had A-fib in the past. Also he has been having daily diarrhea for few days without any nausea or vomiting or fever. He was found to be in A-fib with RVR. His heart rate has been well- controlled in the 90s on combination of metoprolol and Cardizem. Blood pressure noted to be on the high side few times. Patient denies any chest pain or shortness of breath at rest or with exertion. Denies orthopnea or paroxysmal nocturnal dyspnea or dizziness or syncope or near syncope. Denies legs edema or discomfort on exertion. He smoked in the past on and off for about 10 years however he quit about 20 years ago. He drinks alcohol occasionally probably 2 beers a year. He smokes marijuana but no other illicit drugs. Patient and his states that he snores only when he is very tired. The reports that he does not stop breathing during the night for they reported a couple events when he woke up gasping for air. He denies being sleepy or tired during the daytime. He reports that he drinks a lot of caffeine about 2 bottles of soda a day Regarding family history both his father and mother had A-fib. Labs on admission hemoglobin 19.2, HbA1c 5.1%, potassium 3.7, magnesium 1.9, creatinine normal, high-sensitivity troponin normal, cholesterol 231, LDL 162, HDL 55 Patient received IV fluid and he reports that he felt much better after that but he continues to have diarrhea Review of Systems ROS Narrative All systems were reviewed and they were negative except for the positive findings noted above in the history PFSH PFSH Medical History (Updated 05/03/25 @ 18:42 by Kaila Mansfield MD) Atrial fibrillation ?I48.91 - Unspecified atrial fibrillation (ICD-10) Social History Highest level of school completed/degree received: high school graduate Little interest or pleasure in doing things: not at all Feeling down, depressed, or hopeless: not at all Meds Home Medications and Allergies Home Medications ?Medication ?Instructions ?Recorded ?Confirmed ?Type clobetasol 0.05 % topical cream 1 applic topical DAILY 11/03/24 05/02/25 History Allergies Allergy/AdvReac Type Severity Reaction Status Date / Time No Known Drug Allergies Allergy Verified 05/02/25 12:38 Exam Narrative Exam Narrative: He is alert oriented not in apparent distress Neck supple, normal range of motion, no carotid bruit, jugular venous pressure is normal HEENT within normal limits Lungs clear to auscultation without rales rhonchi or wheezes Cardiovascular system irregular irregularity, normal S1 and S2, no gallop or murmur or click Abdomen: Obese, soft, benign, no organomegaly or tenderness Extremities no edema or cyanosis or clubbing Neurological examination within normal limits Constitutional Vital Signs, click to edit/add: Last Vital Signs Temp 98.8 F 05/03/25 12:00 Pulse 82 05/03/25 18:00 Resp 16 05/03/25 16:10 BP 132/99 H 05/03/25 10:21 Pulse Ox 100 05/03/25 04:00 O2 Del Method Room Air 05/03/25 04:00 Results Labs and Meds Lab results: CBC 05/03/25 Range/Units 05:53 WBC 7.4 (4.0-11.0) 10^3/uL RBC 5.72 (4.70-6.10) 10^6/uL Hgb 19.2 H (14.0-18.0) g/dL Hct 53.3 (42.0-54.0) % Plt Count 235 (150-450) 10^3/uL Comprehensive Metabolic Panel 05/03/25 Range/Units 05:53 Sodium 138 (136-145) mmol/L Potassium 3.7 (3.5-5.1) mmol/L Chloride 102 (98-107) mmol/L Carbon Dioxide 25.0 (21.0-32.0) mmol/L BUN 12.0 (7.0-18.0) mg/dL Creatinine 0.89 (0.70-1.30) mg/dL Glucose 99 (74-106) mg/dL Calcium 9.1 (8.5-10.1) mg/dL Intake and Output 05/03/25 05/03/25 05/03/25 07:59 15:59 23:59 Intake Total 500 / 2511.917 Balance 500 / 2511.917 Intake: Oral 500 / 1500 Other: # Voids 1 EKG on admission showed atrial fibrillation with rapid ventricular rate Echo 05/02/2025 1. Moderate concentric left ventricular hypertrophy with normal systolic function. Estimated LVEF is 70%. 2. Normal right ventricular size and systolic function. 3. Mild biatrial dilatation. 4. No significant valvular dysfunction. 5. Unable to assess right-sided pressures due to lack of measurable tricuspid regurgitation. Assessment and Plan Assessment and Plan (1) Atrial fibrillation with RVR: Assessment and Plan: [id number] score 1 for hypertension. Ventricular rate better controlled on combination of Toprol-XL and Cardizem (2) Essential hypertension: Assessment and Plan: Better controlled on Toprol-XL and Cardizem (3) Hyperlipidemia: (4) Polycythemia: Assessment and Plan: Could be due to significant sleep apnea (5) Diarrhea: (6) Dehydration: (7) Hypothyroidism: (8) Obesity: Plan Continue Toprol-XL 100 mg daily and Cardizem 60 mg p.o. 3 times daily for rate control. Consider changing Cardizem to Cardizem CD on discharge Continue to monitor heart rate and blood pressure and adjust medications for better control Start anticoagulation despite low risk. I will start Eliquis 5 mg twice daily Consider replacement of thyroid function Consider starting statin Recommend sleep study as outpatient I recommend to discharge patient with 30-day event monitor and to follow-up EP as soon as possible. If at that time he remains in atrial fibrillation we will consider cardioversion with antiarrhythmic medications versus ablation Patient was advised regarding following low calorie low-carb diet and exercise in order to lose weight. Also he was advised to cut down extremely on caffeine consumption and increase his fluids intake Kaila Mansfield MD, FACC
[2025-05-04] VITALS (8 sets, daily range): BP systolic 133–146; BP diastolic 86–110; PULSE 72–101; TEMP 36.4–36.7; O2SAT 97–99
[2025-05-04] MEDS: DILTIAZEM HCL 60 MG TABLET PO (05:53)
[2025-05-04] MEDS: METOPROLOL SUCCINATE 100 MG TAB.ER.24H PO (08:08)
--- NOTE | 2025-05-04 10:15 | CM.NOTE ---
Rounds made with Dr. Badillo, pt will discharge to home today. Pt will go home on Eliquis. Pt given 30 day free trial and co-pay card. Pt will f/u with Cardiology and PCP. Pt is in agreement to f/u with [facility] cardiology at this time. 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
[2025-05-04 10:24] LABS: Hematocrit 54.9 % (42.0-54.0); Hemoglobin 20.1 g/dL (14.0-18.0); Mean Corpuscular HGB Conc 36.6 g/dL (29.9-35.2); Mean Corpuscular Hemoglobin 34.4 pg (25.9-34.0); Mean Corpuscular Volume 93.8 fL (80.0-94.0); Platelet Count 212 10^3/uL (150-450); Red Blood Count 5.85 10^6/uL (4.70-6.10); White Blood Count 8.0 10^3/uL (4.0-11.0)
--- NOTE | 2025-05-04 12:29 | PM.DS1 ---
DS: Providers Provider Date of admission: 05/03/25 14:35 Primary care physician: Sarwat Way DO Consults: 05/02/25 15:36 Consult to Cardiology Routine Reason for consultation: breakthrough a-fib Discharging clinician: EUN LINDO DS: Diagnosis Discharge Diagnosis (1) Atrial fibrillation with RVR: (2) Essential hypertension: (3) Hyperlipidemia: (4) Polycythemia: (5) Diarrhea: (6) Dehydration: (7) Hypothyroidism: (8) Obesity: DS: Summary Hospital Course Hospital Course: Mr Rhoades is a 55-year-old male who is admitted to hospital the afternoon of May 02 with a chief complaint of not feeling well. In emergency room he was found to be in A-fib with RVR. He has a longstanding history of complicated atrial fibrillation and is status post numerous ablations. Last ablation has been in 2008, he is currently on no medications for his atrial fibrillation, he has not seen his engineering consultant in about 5 years. He was started on Cardizem gtt. and subsequent admitted to the hospital, he was rate controlled the following morning and he was initiated on Cardizem 60 mg 3 times daily, despite this therapy he was still very tachycardic with ambulation. Metoprolol was also initiated. This did control his heart rate better however he remained in A-fib. His [id number] is 0. He has been having issues with diarrhea and on workup in the emergency room his hemoglobin was found to be elevated which is a new finding for him. Given his persistent diarrhea, he received 2 L of fluid on admission and 2 L of IV fluid again the following day. This did fill his tank and he has report feeling much better after the fourth liter of IV fluid. Despite this though his hemoglobin remained elevated, on failure to investigation with his hemoglobin the patient is on testosterone therapy and this is likely a sequela of his testosterone therapy. I did let the patient know that he should see his filler shredder machine in [place] and show him his hemoglobin results as they may want to titrate the dose down a little bit and follow his hemoglobin closely. Cardiology cleared him for discharge with a 14-day Holter monitor, he will have follow-up with a local engineering consultant here as he likely requires an ablation. Given his persistent A-fib, he was started on anticoagulation as well. He will be discharged with Eliquis, Cardizem XL, and metoprolol XL. His stool studies were pending at time of discharge though given his normal white count, nontender abdominal exam I do not feel it will be positive. Recommend calling the hospital tomorrow for the results of the stool studies to ensure that there is no infection. Time Spent with Patient Time attestation: Total time spent providing and/or coordinating discharge services: Exam Narrative Exam Narrative: General: Awake and alert, no acute distress HEENT: Normocephalic, atraumatic, no scleral icterus noted Lungs: Clear to auscultation bilaterally Cardiac: Irregular rhythm, normal rate, no murmurs appreciated GI: Soft, nontender, regular bowel sounds. Extremities: Active and passive range of motion intact throughout, no edema Neuro: Cranial nerves II through XII intact, no focal deficits noted Skin: No rashes or lesions, no signs of jaundice Constitutional Vital Signs, click to edit/add: Last Vital Signs Temp 97.6 F 05/04/25 08:00 Pulse 101 H 05/04/25 08:00 Resp 16 05/04/25 08:00 BP 143/100 H 05/04/25 08:00 Pulse Ox 98 05/04/25 08:00 O2 Del Method Room Air 05/04/25 08:00 DS: Data Data Completed and Pending Labs on day of discharge: Labs from last 24 hours 05/04/25 05/03/25 10:00 09:30 WBC 8.0 RBC 5.85 Hgb 20.1 H Hct 54.9 H MCV 93.8 MCH 34.4 H MCHC 36.6 H RDW 12.5 Plt Count 212 MPV 11.4 Urine Color Lt. yellow Urine Clarity Clear Urine pH 7.0 Ur Specific [place] 1.010 Urine Protein Negative Urine Glucose (UA) Negative Urine Ketones 40 A Urine Occult Blood Negative Urine Nitrite Negative Urine Bilirubin Negative Urine Urobilinogen 1.0 Ur Leukocyte Esterase Negative Discharge Plan Discharge Disposition: Home, Self-Care Condition: Fair Discharge Medications: New metoprolol succinate 100 mg Tablet Extended Release 24 Hr 100 mg PO QD 90 Days Qty: 90 0RF diltiazem HCl [Cardizem CD] 180 mg capsule,extended release 24hr 180 mg PO DAILY Qty: 90 0RF Eliquis 5 mg tablet 5 mg PO BID 30 Days Qty: 60 0RF Continued clobetasol 0.05 % cream 1 applic TOPICAL DAILY Activity: resume usual activities as tolerated Diet: advance to your usual diet Print Language: [place] Patient Instructions: Metoprolol (By mouth), Diltiazem (By mouth), Apixaban (By mouth) (Eliquis), A-fib (Atrial Fibrillation) (DC), Dehydration (DC) Forms: Portal Instructions Follow Up Appointments: You will receive a call on Monday 05/07 with an appt. day and time with the [facility] at [facility]. Wed. 05/08 @ 1:45pm with Dr Rose at [facility] at [facility] [phone] 05/14 @ 3:45pm with Dr. Way [phone]
--- NOTE | 2025-05-04 13:00 | CM.NOTE ---
Case Management in to speak with pt about Eliquis and reason for medication. Pt was provided 30 day free trial and 10 day c-pay card. Pt verbalizes understanding. Pt does have f/u scheduled with cardiology and PCP. Explained to pt sleep lab is closed on Wednesday. Case Management will call him on Wednesday with appointment for sleep study.
[2025-05-04 15:08] LABS: Erythropoietin (EPO), Serum 8.1 mIU/mL (2.6-18.5)
--- NOTE | 2025-05-07 15:24 | CM.DCFOLLOWU ---
1st attempt 05/07/25, no answer
[2025-05-08 08:08] LABS: Calprotectin, Fecal 10 ug/g (0-120)
--- NOTE | 2025-05-08 14:25 | CM.DCFOLLOWU ---
2nd attempt 05/08/25, no answer
--- NOTE | 2025-05-09 15:10 | CM.DCFOLLOWU ---
3rd attempt 05/09/25, no answer
[2025-05-09 19:09] LABS: Lactoferrin, Fecal, Quant. <1.00 ug/mL(g) (0.00-7.24)
== END 2025-05-04 13:07 | disposition home or self-care (01) | DRG 310 ==
LOC: ER 14:34 → MS 15:47
PROVIDERS: Admitting Provider Internal Medicine; Emergency Provider Emergency Medicine; PCP Internal Medicine; Visit Provider Internal Medicine
DX: I48.19 Other persistent atrial fibrillation (principal); L40.9 Psoriasis, unspecified; Z86.16 Personal history of COVID-19; R19.7 Diarrhea, unspecified; I10 Essential (primary) hypertension; E78.5 Hyperlipidemia, unspecified; D75.1 Secondary polycythemia; E86.0 Dehydration; E66.9 Obesity, unspecified; Z79.899 Other long term (current) drug therapy; Z68.33 Body mass index [BMI] 33.0-33.9, adult; T38.7X5A Adverse effect of androgens and anabolic congeners, initial encounter; Z87.891 Personal history of nicotine dependence; Z82.49 Family history of ischemic heart disease and other diseases of the circulatory system
CPT/HCPCS: 36415; 71045; 80048; 81003; 82668; 83631; 83735; 83993; 84439; 84443; 84484; 85025; 85027; 87045; 87046; 87177; 87209; 87427; 87811; 93005; 93246; 93306; 96365; 96366; 96372; 96376; 99285; G0378; J1650

== ENCOUNTER 2025-05-21 20:00 | Outpatient (OUT) | payer OTHER, SELFPAY ==
--- OUTSIDE RECORDS SUMMARY | 2025-05-22 07:08 | XMS_ITS | CCD ---
Author Organization [facility] Care Team Providers Care University Manager Name Role Phone Sarwat Way Primary Care Provider Tanner Brown Unavailable [phone] SEAMUS, DR FAM Consulting Unavailable SEAMUS, DR FAM Primary Care Unavailable BALL, DR FAM Admitting Unavailable BALL, DR FAM Referring Unavailable BALL, DR FAM Attending Unavailable BALL, DR FAM Consulting Unavailable BALL, DR FAM Primary Care Unavailable BALL, DR FAM Admitting Unavailable BALL, DR FAM Attending Unavailable TILA, DR KARSTEN San Consulting Unavailable SEAMUS, DR FAM Primary Care Unavailable BALL, DR FAM Admitting Unavailable BALL, DR FAM Attending Unavailable BALL, DR FAM Consulting Unavailable BALL, DR FAM Primary Care Unavailable TRAVIS SOSA Admitting Unavailable TILA, DR KARSTEN San Consulting Unavailable TRAVIS SOSA Attending Unavailable TRAVIS SOSA Consulting Unavailable Sarwat Way Unavailable Shalonda Glaser Unavailable Sarwat Way DO Primary Care Provider Iván Mcnulty MD Attending Provider [phone] Iván Mcnulty Attending Unavailable Iván Mcnulty Admitting Unavailable Sarwat Way Primary Care Unavailable Seamus, Sarwat Admitting Unavailable Seamus, Sarwat Attending Unavailable Seamus, Sarwat Primary Care Unavailable Sarwat Way DO Primary Care Provider [phone] DO Attending Provider [phone] Diogenes Sosa DO Attending Provider [phone] Aubrey Badillo DO Attending Provider Elizabet Choi CMA Attending Provider UnavailNATALIO Hernandez Attending Unavailable Medications Current Medications Medication Drug Class(es) Dates Sig (Normalized) Sig (Original) anastrozole 1 mg oral tablet (4 sources) Aromatase Inhibitor Start: 11-23-2024 take 1 tablet by mouth once Anastrozole 1 mg tablet Active 1 MG PO .week November 23, 2024 1:00am Complies with drug therapy apixaban 5 mg oral tablet (3 sources) Factor Xa Inhibitor Start: 05-08-2025 take 1 tablet by mouth twice daily Apixaban (Eliquis) 5 mg tablet Active 5 MG PO Twice daily May 08, 2025 12:00am Complies with drug therapy Start: 10-12-2020 take 1 tablet by kamlesh th twice daily ELIQUIS 5 mg tab(s) Take 5 mg by mouth twice daily. 0 10/12/2020 Active Comment on above: Take 5 mg by mouth t wice daily. clobetasol propionate 0.5 mg/ml topical cream (20 sources) Corticosteroid Start: 03-21-2024 Clobetasol 0.05 % cream Active 0 .ROUTE .COMPLEX 60 March 21, 2024 8:38am APPLY 1 APPLICATION TOPICALLY TO AFFECTED AREA TWICE A DAY Complies with drug therapy Start: 03-21-2024 End: 03-21-2024 Clobetasol 0.05 % [...] AREA dicyclomine hydrochloride 20 mg oral tablet (3 sources) Anticholinergic Start: 01-26-20 take 1 tablet by mouth three times daily Dicyclomine 20 mg tablet Active 20 MG PO Three times daily January 25, 2025 12:00am Complies with drug therapy 24 hr dilTIAZem hydrochloride 180 mg extended release oral capsule (1 source) Calcium Channel Mary Start: 05-08-20 take 1 capsule by mouth once daily Diltiazem Hcl 180 mg capsule,extended release 24hr Active 180 MG PO Daily May 08, 2025 12:00am Complies with drug therapy famotidine 40 mg oral tablet (1 source) Histamine-2 Receptor Antagonist Start: 05-08-20 take 1 tablet by mouth once daily at bedtime Famotidine 40 mg tablet Active 40 MG PO Daily at bedtime 30 May 08, 2025 12:00am Complies with drug therapy 24 hr metoprolol succinate 100 mg extended release oral tablet (3 sources) beta-Adrenergic Mary Start: 05-08-20 take 1 tablet by mouth once daily Metoprolol Succinate 100 mg tablet extended release 24 hr Active 100 MG PO Daily May 08, 2025 12:00am Complies with drug therapy Start: 10-12-2020 take 1 tablet by kamlesh th twice daily at mealtime metoprolol tartrate, short acting, (LOPRESSOR) 25 mg tablet Take 25 mg by mouth twice daily with meals. 0 10/12/2020 Active Comment on above: Take 25 mg by mouth twice daily with meals. predniSONE 20 mg oral tablet (1 source) Start: 10-28-19 predniSONE 20 MG 1 tablet Orally tid w/ food x 3 days, then bid w/ food x 3 days then qd w/ food x 3 days for 9 days Oct, Active testosterone cypionate 100 mg/ml injectable solution (5 sources) Androgen Start: 11-23-19 inject 1 mL by intramuscular injection once Testosterone Cypionate 100 mg/mL oil Active 100 MG IM .week November 23, 2024 1:00am Free[employer] mL Intramuscular; Note: Source Status: Taking; Provider: Seamus Fam ( ) Complies with drug therapy Testosterone Cyp ionate 100 MG/ML 1 mL [...] above: TAKE 1 TABLET BY KAMLESH TH EVERY 6 HOURS NEEDED FOR PAIN *MAX 4 TABLETS PER DAY* ALPRAZolam 0.5 mg oral tablet (2 sources) Benzodiazepine Start: 02-18-2011 ALPRAZolam (XANAX) 0.5 mg ORAL tablet Take 1 tablet by mouth as needed. 0 02/18/2011 Active Comment on above: Take 1 tablet by kamlesh th as needed. calcium/mag/vitamin D2/Zn/min (XUAN-MAG ZINC II ORAL) (2 [...] on above: Take 1 capsule by mo ut once daily. COMPOUNDED PRESCRIPTION (2 sources) Start: [...] 1 capsule by mo uth once daily. [id number]-[id number]-HXS-F A-LUTEIN 18 MG-0.4 MG-250 MCG TAB (2 sources) Start: 10-07-2007 FZXPWVIT-AXSW-BRP -FA-LUTEIN 18 MG-0.4 MG-250 MCG TAB Take one(1) tablet daily. 0 10/07/2007 Active Comment on above: Take one(1) tablet d aily. telmisartan 20 mg oral tablet (4 sources) Angiotensin 2 Receptor Mary Start: 11-13-2024 End: 11-23-2024 take 1 tablet by mouth once daily Telmisartan 20 mg tablet Discontinued 20 MG PO Daily 30 November 13, 2024 1:00am November 23, 2024 [...] disorder] Onset: 03-08-2017 Chronic Biliary tract disease (12 sources) Biliary calculus; Translations: [Calculus of gallbladder without cholecystitis without obstruction] Onset: 09-27-2020 08-13-2024 Episodic Cardiac dysrhythmias (20 sources) Other specified cardiac arrhythmias; Translations: [Paroxysmal tachycardia] Onset: 10-07-2007 10-07-2007 Chronic Comment on above: Echo: LVEF 70%, BARAK, normal RV size/function - 04/2025 Disorders of lipid metabolism (16 sources) Pure hypercholesterolemia; Translations: [Familial hypercholesterolemia] Onset: 03-08-2017 08-13-2024 Chronic Essential hypertension (11 sources) Essential hypertension; Translations: [Essential (primary) hypertension] Onset: 01-03-2014 Resolved: 10-15-2020 11-01-2020 Chronic Gastrointestinal hemorrhage (15 sources) Rectal hemorrhage; Translations: [Hemorrhage of anus and rectum] Onset: 12-07-2024 11-11-2024 Episodic Hyperplasia of prostate (4 sources) Benign prostatic hyperplasia; Translations: [Benign prostatic hyperplasia without lower urinary tract symptoms] Chronic Other acquired deformities (3 sources) Acquired spondylolisthesis; Translations: [Spondylolysis, lumbar region] Episodic Other connective tissue disease (5 sources) Weakness of left hand; Translations: [Other [...] encounter for fracture] Episodic Other gastrointestinal disorders (3 sources) Irritable bowel syndrome; Translations: [Irritable bowel syndrome without diarrhea] 01-25-2025 Chronic Other gastrointestinal disorders (2 sources) Irritable bowel syndrome without diarrhea; Translations: [Irritable bowel syndrome] 01-25-2025 Chronic Other gastrointestinal disorders (4 sources) Altered bowel function; Translations: [Other specified symptoms and signs involving the digestive system and abdomen] 11-13-2024 Episodic Other inflammatory condition of skin (3 sources) Plaque psoriasis; 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] Chronic Other inflammatory condition of skin (1 source) Psoriasis vulgaris; 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] Chronic Other inflammatory condition of skin (1 source) Psoriasis; Translations: [Psoriasis, unspecified] Onset: 12-17-2015 Chronic Other nervous system disorders (3 sources) Carpal tunnel syndrome; Translations: [Carpal tunnel syndrome, bilateral upper limbs] 11-13-2024 Chronic Other nervous system disorders (2 sources) Carpal tunnel syndrome, bilateral upper limbs; Translations: [Carpal tunnel syndrome] 11-13-2024 Chronic Other nervous system disorders (1 source) Bilateral carpal tunnel syndrome; Translations: [Carpal tunnel syndrome, bilateral upper limbs] 11-13-2024 Chronic Other non-traumatic joint disorders (1 source) Pain in right hip Episodic Other nutritional; endocrine; and metabolic disorders (9 sources) Obesity; Translations: [Obesity, unspecified] 11-13-2024 Chronic [...] conditions (not mental disorders or infectious disease) (12 sources) Encounter for screening for malignant neoplasm of prostate; Translations: [Raised prostate specific antigen] Onset: 04-08-2022 08-13-2024 Episodic Comment on above: PSA: 0.74 - 03/2022, PSA: 0.74 - 03/2022, 1.4 - 07/2024 Other upper respiratory disease (12 sources) Allergic rhinitis due to pollen; Translations: [...] Spondylosis; intervertebral disc disorders; other back problems (12 sources) Lumbar spondylosis with myelopathy; Translations: [Other [...] Test Name Value Interpretation Reference Range Facility Orders Onlyon 05-09-2025 Orders Only [id number] Mayra Rhoades [place] 1970 M Date Provider Department Center 05/09/2025 [id number], HISTORICAL CARD [facility] Family History Problem Relation Age of Onset Atrial fibrillation Mother Hypertension Mother Atrial fibrillation Father Family Status - Relation Status Age at Mother Alive Father Alive Normal [facility] Office Visiton 05-08-2025 Follow-up visit [id number] Mayra Rhoades [place] 1970 M Date Provider Department Center 05/08/2025 NATALIO HINSON CARD [facility] Family History Problem Relation Age of Onset Atrial fibrillation Mother Hypertension Mother Atrial fibrillation Father Family Status - Relation Status Age at Mother Alive Father Alive Level of Service:49226 [place] OFFICE/OUTPATIENT NEW MODERATE MDM 45 MINUTES Normal [facility] Orders Onlyon 05-08-2025 Orders Only [id number] Mayra Rhoades [place] 1970 M Date Provider Department Center 05/08/2025 JOSE MEEKS CARD [facility] Family History Problem Relation Age of Onset Atrial fibrillation Mother Hypertension Mother Atrial fibrillation Father Family Status - Relation Status Age at Mother Alive Father Alive Normal [facility] Erythrocyte distribution wid th Auto (RBC) [Ratio]Ordered By: Aubrey Badillo on 05-04-2025 Erythrocyte distribution width (RBC) [Ratio] 12.5 % 11.0-15.0 [facility] Hematocrit Auto (Bld) [Volum e fraction]Ordered By: Aubrey Badillo on 05-04-2025 Hematocrit (Bld) [Volume fraction] 54.9 % High 42.0-54.0 [facility] Hemoglobin [Mass/volume] in BloodOrdered By: Aubrey Badillo on 05-04-2025 Hemoglobin (Bld) [Mass/Vol] 20.1 g/dL High 14.0-18.0 [facility] Leukocytes [#/volume] correc alessia for nucleated erythrocytes in Blood by Automated counOrdered By: Aubrey Badillo on 05-04-2025 WBC corrected for nucl RBC Auto (Bld) [#/Vol] 8.0 10 3/uL 4.0-11.0 [facility] MCH Auto (RBC) [Entitic mass ]Ordered By: Aubrey Badillo on 05-04-2025 MCH (RBC) [Entitic mass] 34.4 pg High 25.9-34.0 [facility] MCHC Auto (RBC) [Mass/Vol]Or dered By: Aubrey Badillo on 05-04-2025 MCHC (RBC) [Mass/Vol] 36.6 g/dL High 29.9-35.2 [facility] MCV Auto (RBC) [Entitic vol] Ordered By: Aubrey Badillo on 05-04-2025 MCV (RBC) [Entitic vol] 93.8 fL 80.0-94.0 [facility] Platelet mean volume Auto (B ld) [Entitic vol]Ordered By: Aubrey Badillo on 05-04-2025 Platelet mean volume (Bld) [Entitic vol] 11.4 fL 9.5-13.5 [facility] Platelets Auto (Bld) [#/Vol] Ordered By: Aubrey Badillo on 05-04-2025 Platelets (Bld) [#/Vol] 212 10 3/uL 150-450 [facility] RBC Auto (Bld) [#/Vol]Ordere d By: Aubrey Badillo on 05-04-2025 RBC (Bld) [#/Vol] 5.85 10 6/uL 4.70-6.10 [facility] Erythrocyte distribution wid th Auto (RBC) [Ratio]Ordered By: Aubrey Badillo on 05-03-2025 Erythrocyte distribution width (RBC) [Ratio] 12.5 % 11.0-15.0 [facility] Glomerular filtration rate ( GFR) estimation in non- AmericanOrdered By: Aubrey Badillo on 05-03-2025 GFR/1.73 sq M.predicted among non-blacks MDRD (S/P/Bld) [Vol rate/Area] mL/min/{1.73_m2} >=60 mL/min/1.73m 2 [facility] Hematocrit Auto (Bld) [Volum e fraction]Ordered By: Aubrey Badillo on 05-03-2025 Hematocrit (Bld) [Volume fraction] 53.3 % 42.0-54.0 [facility] Hemoglobin [Mass/volume] in BloodOrdered By: Aubrey Badillo on 05-03-2025 Hemoglobin (Bld) [Mass/Vol] 19.2 g/dL High 14.0-18.0 [facility] Laboratory - Chemistry and C hemistry - challengeOrdered By: Aubrey Badillo on 05-03-2025 Bilirubin Ql (U) Negative NEGATIVE [facility] Glucose (U) [Mass/Vol] Negative NEGATIVE [facility] Ketones Ql (U) 40 mg/dL Abnormal NEGATIVE [facility] pH (U) 7.0 [pH] 5.0-9.0 [facility] Specific gravity (U) [Rel density] 1.010 1.005-1.025 [facility] Urobilinogen Qn (U) 1.0 {Laura'U}/dL 0.2-1.0 [facility] Calcium [Mass/Vol] 9.1 mg/dL 8.5-10.1 [facility] Chloride [Moles/Vol] 102 mmol/L 98-107 [facility] CO2 [Moles/Vol] 25.0 mmol/L 21.0-32.0 [facility] Creatinine [Mass/Vol] 0.89 mg/dL 0.70-1.30 [facility] Free T4 [Mass/Vol] 1.16 ng/dL 0.76-1.46 [facility] GFR/1.73 sq M.predicted MDRD (S/P/Bld) [Vol rate/Area] mL/min/{1.73_m2} >=60 mL/min/1.73m 2 [facility] Glucose [Mass/Vol] 99 mg/dL 74-106 [facility] Magnesium [Mass/Vol] 1.9 mg/dL 1.8-2.4 [facility] Potassium [Moles/Vol] 3.7 mmol/L 3.5-5.1 [facility] Sodium [Moles/Vol] 138 mmol/L 136-145 [facility] TSH Qn 4.329 m[IU]/L High 0.358-3.740 [facility] Urea nitrogen [Mass/Vol] 12.0 mg/dL 7.0-18.0 [facility] Urea nitrogen/Creatinine [Mass ratio] 13.5 mg/mg [facility] Laboratory - Specimen inform ationOrdered By: Aubrey Badillo on 05-03-2025 Appearance (U) CLEAR CLEAR [facility] Color (U) LT. YELLOW YELLOW [facility] Laboratory - UrinalysisOrder ed By: Aubrey Badillo on 05-03-2025 Leukocyte esterase Test strip Ql (U) Negative NEGATIVE [facility] Nitrite Ql (U) Negative NEGATIVE [facility] Protein Ql (U) Negative NEG/TRACE [facility] Leukocytes [#/volume] correc alessia for nucleated erythrocytes in Blood by Automated counOrdered By: Aubrey Badillo on 05-03-2025 WBC corrected for nucl RBC Auto (Bld) [#/Vol] 7.4 10 3/uL 4.0-11.0 [facility] MCH Auto (RBC) [Entitic mass ]Ordered By: Aubrey Badillo on 05-03-2025 MCH (RBC) [Entitic mass] 33.6 pg 25.9-34.0 [facility] MCHC Auto (RBC) [Mass/Vol]Or dered By: Aubrey Badillo on 05-03-2025 MCHC (RBC) [Mass/Vol] 36.0 g/dL High 29.9-35.2 [facility] MCV Auto (RBC) [Entitic vol] Ordered By: Aubrey Badillo on 05-03-2025 MCV (RBC) [Entitic vol] 93.2 fL 80.0-94.0 [facility] No Panel InformationOrdered By: Aubrey Badillo on 05-03-2025 Stool Calprotectin 10 ug/g 0-120 [facility] Comment on above: Concentration Interp retation Follow-Up< 5 - 50 ug/g Normal None>50 -120 ug/g Borderline Re-evaluate in 4-6 weeks >120 ug/g Abnormal Repeat as clinically indicatedPerformed at: BN [facility] [place] [address], [place], [place] [id number] Director: Linda Farley MD, Phone: [phone] Urine Occult Blood Negative NEGATIVE [facility] Platelet mean volume Auto (B ld) [Entitic vol]Ordered By: Aubrey Badillo on 05-03-2025 Platelet mean volume (Bld) [Entitic vol] 10.3 fL 9.5-13.5 [facility] Platelets Auto (Bld) [#/Vol] Ordered By: Aubrey Badillo on 05-03-2025 Platelets (Bld) [#/Vol] 235 10 3/uL 150-450 [facility] RBC Auto (Bld) [#/Vol]Ordere d By: Aubrey Badillo on 05-03-2025 RBC (Bld) [#/Vol] 5.72 10 6/uL 4.70-6.10 [facility] Serum or plasma anion gap de terminationOrdered By: Aubrey Badillo on 05-03-2025 Anion gap [Moles/Vol] 14.7 mmol/L [facility] Serum or plasma erythropoiet in (EPO) measurement (units/volume)Ordered By: Aubrey Badillo on 05-03-2025 Erythropoietin (EPO) Qn 8.1 mIU/mL 2.6-18.5 [facility] Comment on above: Bob [place] UniC el DxI 800 Immunoassay SystemValues obtained with different assay methods or kits cannotbe used interchangeably. Results cannot be interpreted asabsolute evidence of the presence or absence of malignantdisease.Performed at: - [facility] [id number] Director: Claudy Collado PhD, Phone: [phone] Basophils Auto (Bld) [#/Vol] Ordered By: Diogenes Sosa on 05-02-2025 Basophils (Bld) [#/Vol] 0.0 10 3/uL 0.0-0.1 [facility] Basophils/100 WBC Auto (Bld) Ordered By: Diogenes Sosa on 05-02-2025 Basophils/100 WBC (Bld) 0.4 % 0.2-2.0 [facility] Eosinophils/100 WBC Auto (Bl d)Ordered By: Diogenes Sosa on 05-02-2025 Eosinophils/100 WBC (Bld) 0.4 % Low 0.9-7.0 [facility] Erythrocyte distribution wid th Auto (RBC) [Ratio]Ordered By: Diogenes Sosa on 05-02-2025 Erythrocyte distribution width (RBC) [Ratio] 12.4 % 11.0-15.0 [facility] Glomerular filtration rate ( GFR) estimation in non- AmericanOrdered By: Diogenes Sosa on 05-02-2025 GFR/1.73 sq M.predicted among non-blacks MDRD (S/P/Bld) [Vol rate/Area] mL/min/{1.73_m2} >=60 mL/min/1.73m 2 [facility] Hematocrit Auto (Bld) [Volum e fraction]Ordered By: Diogenes Sosa on 05-02-2025 Hematocrit (Bld) [Volume fraction] 55.2 % High 42.0-54.0 [facility] Hemoglobin [Mass/volume] in BloodOrdered By: Diogenes Sosa on 05-02-2025 Hemoglobin (Bld) [Mass/Vol] 20.3 g/dL High 14.0-18.0 [facility] - Chemistry and C hemistry - challengeOrdered By: Diogenes Sosa on 05-02-2025 Calcium [Mass/Vol] 9.5 mg/dL 8.5-10.1 [facility] Chloride [Moles/Vol] 101 mmol/L 98-107 [facility] CO2 [Moles/Vol] 26.8 mmol/L 21.0-32.0 [facility] Creatinine [Mass/Vol] 1.21 mg/dL 0.70-1.30 [facility] GFR/1.73 sq M.predicted MDRD (S/P/Bld) [Vol rate/Area] mL/min/{1.73_m2} >=60 mL/min/1.73m 2 [facility] Glucose [Mass/Vol] 99 mg/dL 74-106 [facility] Magnesium [Mass/Vol] 1.9 mg/dL 1.8-2.4 [facility] Potassium [Moles/Vol] 4.1 mmol/L 3.5-5.1 [facility] Sodium [Moles/Vol] 138 mmol/L 136-145 [facility] Urea nitrogen [Mass/Vol] 13.0 mg/dL 7.0-18.0 [facility] Urea nitrogen/Creatinine [Mass ratio] 10.7 mg/mg [facility] - Hematology and Cell countsOrdered By: Diogenes Sosa on 05-02-2025 Immature granulocytes/100 WBC (Bld) 0.5 % 0.0-0.5 [facility] - Microbiology an d Antimicrobial susceptibilityOrdered By: Diogenes Sosa on 05-02-2025 SARS-CoV-2 (COVID-19) RNA ABHI+probe Ql (Unsp spec) Negative NEGATIVE [facility] Comment on above: This test has not be en FDA cleared or approved, but has beenauthorized by the FDA under an Emergency Use Authorization(EUA) for use by authorized laboratories certified underIA that meet the requirements to perform moderate or highcomplexity testing. This test has been authorized only forthe detection of proteins from SARS-CoV-2, not for any otherviruses or pathogens. The emergency use of this test isauthorized for the duration of the declaration thatcircumstances exist justifying the authorization ofemergency use of in vitro diagnostic tests for detectionand/or diagnosis of Covid-19 under section 564(b)(1) of theAct, 21 U.S.C. 360bbb-3(b)(1), unless the declaration isterminated or authorization is revoked sooner. Leukocytes [#/volume] correc alessia for nucleated erythrocytes in Blood by Automated counOrdered By: Diogenes Sosa on 05-02-2025 WBC corrected for nucl RBC Auto (Bld) [#/Vol] 9.3 10 3/uL 4.0-11.0 [facility] Lymphocytes Auto (Bld) [#/Vo l]Ordered By: Diogenes Sosa on 05-02-2025 Lymphocytes (Bld) [#/Vol] 2.2 10 3/uL 1.2-3.8 [facility] Lymphocytes/100 WBC Auto (Bl d)Ordered By: Diogenes Sosa on 05-02-2025 Lymphocytes/100 WBC (Bld) 23.4 % 20.5-60.0 [facility] MCH Auto (RBC) [Entitic mass ]Ordered By: Diogenes Sosa on 05-02-2025 MCH (RBC) [Entitic mass] 34.1 pg High 25.9-34.0 [facility] MCHC Auto (RBC) [Mass/Vol]Or dered By: Diogenes Sosa on 05-02-2025 MCHC (RBC) [Mass/Vol] 36.8 g/dL High 29.9-35.2 [facility] MCV Auto (RBC) [Entitic vol] Ordered By: Diogenes Sosa on 05-02-2025 MCV (RBC) [Entitic vol] 92.6 fL 80.0-94.0 [facility] Monocytes Auto (Bld) [#/Vol] Ordered By: Diogenes Sosa on 05-02-2025 Monocytes (Bld) [#/Vol] 0.9 10 3/uL High 0.3-0.8 [facility] Monocytes/100 WBC Auto (Bld) Ordered By: Diogenes Sosa on 05-02-2025 Monocytes/100 WBC (Bld) 9.8 % 1.7-12.0 [facility] Neutrophils Auto (Bld) [#/Vo l]Ordered By: Diogenes Sosa on 05-02-2025 Neutrophils (Bld) [#/Vol] 6.1 10 3/uL 1.4-6.5 [facility] Neutrophils/100 WBC Auto (Bl d)Ordered By: Diogenes Sosa on 05-02-2025 Neutrophils/100 WBC (Bld) 65.5 % 43.0-75.0 [facility] No Panel InformationOrdered By: Diogenes Sosa on 05-02-2025 Eosinophils # (Auto) 0.0 10 3/uL 0.0-0.7 [facility] Immature Granulocyte # (Auto) 0.05 10 3/uL High 0.00-0.03 [facility] Troponin I High Sensitivity 8.1 pg/mL 4.0-76.1 [facility] Comment on above: CUT-OFF POINTS HAVE BEEN ESTABLISHED BASED ON THE FOURTHUNIVERSAL DEFINITION OF MYOCARDIAL INFARCTION. THE UPPERREFERENCE LIMIT (URL) OF TROPONIN, DEFINED THE 99THPERCENTILE OF cTnI DISTRIBUTION IN A REFERENCE POPULATION,HAS BEEN CONFIRMED THE DECISION THRESHOLD FOR MIDIAGNOSIS.99TH PERCENTILE = 76.2 PG/MLNOTE: HIGH-SENSITIVITY TROPONIN ASSAY IS NOT INTENDED TO BEUSED IN ISOLATION BUT SHOULD BE INTERPRETED IN CONJUNCTIONWITH OTHER DIAGNOSTIC AND CLINICAL INFORMATION. Platelet mean volume Auto (B ld) [Entitic vol]Ordered By: Diogenes Sosa on 05-02-2025 Platelet mean volume (Bld) [Entitic vol] 10.0 fL 9.5-13.5 [facility] Platelets Auto (Bld) [#/Vol] Ordered By: Diogenes Sosa on 05-02-2025 Platelets (Bld) [#/Vol] 260 10 3/uL 150-450 [facility] RBC Auto (Bld) [#/Vol]Ordere d By: Diogeens Sosa on 05-02-2025 RBC (Bld) [#/Vol] 5.96 10 6/uL 4.70-6.10 [facility] Serum or plasma anion gap de terminationOrdered By: Diogenes Sosa on 05-02-2025 Anion gap [Moles/Vol] 14.3 mmol/L [facility] Amphetamine Screen Ql (U)Ord ered By: Iván Mcnulty on 12-07-2024 Amphetamines Ql (U) Amphetamines screen Negativ e [facility] Barbiturates [Presence] in U rine by Screen methodOrdered By: Iván Mcnulty on 12-07-2024 Barbiturates Screen Ql (U) Barbiturates [Presence] in Urine by Screen method Negative [facility] Benzodiazepines Screen Ql (U )Ordered By: Iván Mcnulty on 12-07-2024 Benzodiazepines Ql (U) Benzodiazepines [Presence] in Urine by Screen method Negative [facility] Benzoylecgonine [Presence] i n Urine by Screen methodOrdered By: Iván Mcnulty on 12-07-2024 Benzoylecgonine Screen Ql (U) Benzoylecgonine [Presence] in Urine by Screen method Negative [facility] Cannabinoids [Presence] in U rine by Screen methodOrdered By: Iván Mcnulty on 12-07-2024 Cannabinoids Screen Ql (U) Cannabinoids [Presence] in Urine by Screen method High Negative [facility] Comment on above: These are unconfirme d results and should not be used for legal purposes. Drug Cut-Off Concentration: AMPH 1000 ng/mL VIK 200 ng/mL PAULA 200 ng/mL COCM 300 ng/mL OP 300 ng/mL PCP 25 ng/mL THC 20 ng/mL Drug Screen,Urineon 12-08-19 25 Amphetamine Screen,Urine Negative Normal Negative [facility] Comment on above: Performed By: #### U RDS #### [address] Barbiturate Screen,Urine Negative Normal Negative [facility] Comment on above: Performed By: #### U RDS #### [place] [id number] [place] Benzodiazepines Screen,Urine Negative Normal Negative [facility] Comment on above: Performed By: #### U RDS #### [place] [address] [place] Cannabinoid Screen,Urine Positive High Negative [facility] Comment on above: Result Comment: Thes e are unconfirmed results and should not be used for legal purposes. Drug Cut-Off Concentration: AMPH 1000 ng/mL VIK 200 ng/mL PAULA 200 ng/mL COCM 300 ng/mL OP 300 ng/mL PCP 25 ng/mL THC 20 ng/mL PERFORMED BY: [place] [address] PATHOLOGIST SPECIAL SERVICES SUPERVISOR PEGGY CABAN M.D. Performed By: #### U RDS #### [place] [address] [place] Cocaine Screen,Urine Negative Normal Negative [facility] Comment on above: Performed By: #### U RDS #### [address] Opiate Screen,Urine Negative Normal Negative [facility] Comment on above: Performed By: #### U RDS #### [address] [place] [address] [facility] Phencyclidine Screen,Urine Negative Normal Negative [facility] Comment on above: Performed By: #### U RDS #### [facility] [address] [id number] [facility] Opiates [Presence] in Urine by Screen methodOrdered By: Iván Mcnulty on 12-07-2024 Opiates Screen Ql (U) Opiates [Presence] in Urine by Screen method Negative [facility] Phencyclidine Screen Ql (U)O rdered By: Iván Mcnulty on 12-07-2024 Phencyclidine Ql (U) Phencyclidine [Presence] in Urine by Screen method Negative [facility] Basophils Auto (Bld) [#/Vol] on 11-03-2024 Basophils (Bld) [#/Vol] Automated basoph il count 0.0-0.1 [facility] Basophils/100 WBC Auto (Bld) on 11-03-2024 Basophils/100 WBC (Bld) Automated basophil % 0. 2-2.0 [facility] Eosinophils/100 WBC Auto (Bl d)on 11-03-2024 Eosinophils/100 WBC (Bld) Automated eosinophil % 0.9-7.0 [facility] Erythrocyte distribution wid th Auto (RBC) [Ratio]on 11-03-2024 Erythrocyte distribution width (RBC) [Ratio] Erythrocyte distribution width [Ratio] by Automated count 11.0-15.0 [facility] Estimated glomerular filtrat ion rate (GFR) non- Americanon 11-03-2024 GFR/1.73 sq M.predicted among non-blacks MDRD (S/P/Bld) [Vol rate/Area] Estimated glomerular filtration rate (GFR) non- >=60 mL/min/1.73m 2 [facility] Globulin Calc (S) [Mass/Vol] on 11-03-2024 Globulin (S) [Mass/Vol] Serum globulin measurement by calculation (mass/volume) [facility] Hematocrit Auto (Bld) [Volum e fraction]on 11-03-2024 Hematocrit (Bld) [Volume fraction] Hematocrit [Volume Fraction] of Blood by Automated count 42.0-54.0 [facility] Hemoglobin [Mass/volume] in Bloodon 11-03-2024 Hemoglobin (Bld) [Mass/Vol] Hemoglobin [Mass/volume] in Blood 14.0-18.0 [facility] Hemoglobin.gastrointestinal [Presence] in Stoolon 11-03-2024 Hemoglobin.gastrointesti nal Ql (Stl) Hemoglobin.gastrointe stinal [Presence] in Stool Abnormal [facility] Laboratory - Chemistry and C hemistry - challengeon 11-03-2024 Bilirubin Ql (U) Negative NEGATIVE [facility] Glucose (U) [Mass/Vol] Negative NEGATIVE [facility] Ketones Ql (U) Negative NEGATIVE [facility] pH (U) 7.0 [pH] 5.0-9.0 [facility] Specific gravity (U) [Rel density] 1.010 1.005-1.025 [facility] Urobilinogen Qn (U) 0.2 {Laura'U}/dL 0.2-1.0 [facility] Lactate [Moles/Vol] 0.9 mmol/L 0.4-2.0 [facility] Albumin [Mass/Vol] 3.5 g/dL 3.4-5.0 [facility] ALP [Catalytic activity/Vol] 66 U/L 46-116 [facility] ALT [Catalytic activity/Vol] 24 U/L 16-63 [facility] AST [Catalytic activity/Vol] 26 U/L 15-37 [facility] Bilirubin [Mass/Vol] 0.5 mg/dL 0.2-1.0 [facility] Calcium [Mass/Vol] 8.8 mg/dL 8.5-10.1 [facility] Chloride [Moles/Vol] 101 mmol/L 98-107 [facility] CO2 [Moles/Vol] 29.2 mmol/L 21.0-32.0 [facility] Creatinine [Mass/Vol] 1.02 mg/dL 0.70-1.30 [facility] GFR/1.73 sq M.predicted MDRD (S/P/Bld) [Vol rate/Area] mL/min/{1.73_m2} >=60 mL/min/1.73m 2 [facility] Glucose [Mass/Vol] 102 mg/dL 74-106 [facility] Potassium [Moles/Vol] 4.3 mmol/L 3.5-5.1 [facility] Protein [Mass/Vol] 7.3 g/dL 6.4-8.2 [facility] Sodium [Moles/Vol] 138 mmol/L 136-145 [facility] Urea nitrogen [Mass/Vol] 16.0 mg/dL 7.0-18.0 [facility] Urea nitrogen/Creatinine [Mass ratio] 15.7 mg/mg [facility] - Hematology and Cell countson 11-03-2024 Immature granulocytes/100 WBC (Bld) 0.2 % 0.0-0.5 [facility] - Specimen inform ationon 11-03-2024 Appearance (U) CLEAR CLEAR [facility] Color (U) LT. YELLOW YELLOW [facility] - Urinalysison Leukocyte esterase Test strip Ql (U) Negative NEGATIVE [facility] Mucus Ql (Urine sed) NONE SEEN NONE SEEN [facility] Nitrite Ql (U) Negative NEGATIVE [facility] Protein Ql (U) Negative NEG/TRACE [facility] Leukocytes [#/volume] correc alessia for nucleated erythrocytes in Blood by Automated counon 11-03-2024 WBC corrected for nucl RBC Auto (Bld) [#/Vol] Leukocytes [#/volume] corrected for nucleated erythrocytes in Blood by Automated coun 4.0-11.0 [facility] Lymphocytes Auto (Bld) [#/Vo l]on 11-03-2024 Lymphocytes (Bld) [#/Vol] Lymphocytes [#/volume] in Blood by Automated count 1.2-3.8 [facility] Lymphocytes/100 WBC Auto (Bl d)on 11-03-2024 Lymphocytes/100 WBC (Bld) Lymphocytes/100 leukocytes in Blood by Automated count 20.5-60.0 [facility] MCH Auto (RBC) [Entitic mass ]on 11-03-2024 MCH (RBC) [Entitic mass] MCH [Entitic ma ss] by Automated count 25.9-34.0 [facility] MCHC Auto (RBC) [Mass/Vol]on 11-03-2024 MCHC (RBC) [Mass/Vol] MCHC [Mass/volume] by Automated count High 29.9-35.2 [facility] MCV Auto (RBC) [Entitic vol] on 11-03-2024 MCV (RBC) [Entitic vol] MCV [Entitic vol ume] by Automated count High 80.0-94.0 [facility] Monocytes Auto (Bld) [#/Vol] on 11-03-2024 Monocytes (Bld) [#/Vol] Automated blood monocyte count 0.3-0.8 [facility] Monocytes/100 WBC Auto (Bld) on 11-03-2024 Monocytes/100 WBC (Bld) Automated monocyte % 1. 7-12.0 [facility] Neutrophils Auto (Bld) [#/Vo l]on 11-03-2024 Neutrophils (Bld) [#/Vol] Neutrophils [#/volume] in Blood by Automated count 1.4-6.5 [facility] Neutrophils/100 WBC Auto (Bl d)on 11-03-2024 Neutrophils/100 WBC (Bld) Automated neutrophil % 43.0-75.0 [facility] No Panel Informationon 11-03 Urine Bacteria TRACE #/HPF Abnormal NONE SEEN [facility] Urine Occult Blood Negative NEGATIVE [facility] Urine Other Casts NONE SEEN #/LPF NONE SEEN [facility] Urine Other Crystals None Seen #/HPF None Seen [facility] Urine RBC NONE SEEN #/HPF 0-2 [facility] Urine Squamous Epithelial Cells RARE #/LPF NONE/RARE [facility] Urine WBC 0-2 #/HPF Abnormal NONE SEEN [facility] Eosinophils # (Auto) 0.1 10 3/uL 0.0-0.7 [facility] Immature Granulocyte # (Auto) 0.01 10 3/uL 0.00-0.03 [facility] Clostridium difficile (PCR)(LAB) Negative [facility] Platelet mean volume Auto (B ld) [Entitic vol]on 11-03-2024 Platelet mean volume (Bld) [Entitic vol] Platelet mean volume [Entitic volume] in Blood by Automated count 9.5-13.5 [facility] Platelets Auto (Bld) [#/Vol] on 11-03-2024 Platelets (Bld) [#/Vol] Platelets [#/vol ume] in Blood by Automated count 150-450 [facility] RBC Auto (Bld) [#/Vol]on RBC (Bld) [#/Vol] Erythrocytes [#/volume] in Blood by Automated count Low 4.70-6.10 [facility] Serum or plasma albumin/glob ulin mass ratioon 11-03-2024 Albumin/Globulin [Mass ratio] Serum or plasma albumin/globulin mass ratio [facility] Serum or plasma anion gap de terminationon 11-03-2024 Anion gap [Moles/Vol] Serum or plasma an ion gap determination [facility] CBC AUTO DIFFon 04-07-2022 BASO # 0.0 103/ul Normal 0.0-0.1 [facility] Comment on above: Performed By: #### C BC #### [facility] [address] [place] [address] Dr. Marlee Faria Basophils/100 WBC (Bld) 0.5 % Normal 0.2-2.0 [facility] Comment on above: Performed By: #### C BC #### [facility] [address] [place] [address] Dr. Marlee Faria EO # 0.1 103/ul Normal 0.0-0.7 [facility] Comment on above: Performed By: #### C BC #### [facility] [address] [place] [address] Dr. Marlee Faria Eosinophils/100 WBC (Bld) 1.4 % Normal 0.9-7.0 [facility] Comment on above: Performed By: #### C BC #### [facility] [address] [place] [address] Dr. Marlee Faria Erythrocyte distribution width (RBC) [Ratio] 11.9 % Normal 11.0-15.0 [facility] Comment on above: Performed By: #### C BC #### [facility] [address] [place] [address] Dr. Marlee Faria Hematocrit (Bld) [Volume fraction] 43.3 % Normal 42.0-54.0 [facility] Comment on above: Performed By: #### C BC #### [facility] [address] [place] [address] Dr. Marlee Faria Hemoglobin (Bld) [Mass/Vol] 14.9 g/dL Normal 14.0-18.0 [facility] Comment on above: Performed By: #### C BC #### [facility] [address] [place] [address] Dr. Marlee Faria IG # 0.01 10e3/ul Normal 0.00-0.03 [facility] Comment on above: Performed By: #### C BC #### [facility] [address] [place] [address] Dr. Marlee Faria IG % 0.2 % Normal 0.0-0.5 [facility] Comment on above: Performed By: #### C BC #### [facility] [address] [place] [address] Dr. Marlee Faria LYMPH # 1.2 103/ul Normal 1.2-3.8 [facility] Comment on above: Performed By: #### C BC #### [facility] [address] [place] [address] Dr. Marlee Faria Lymphocytes/100 WBC (Bld) 28.3 % Normal 20.5-60.0 [facility] Comment on above: Performed By: #### C BC #### [facility] [address] [place] [address] Dr. Marlee Faria MANUAL DIFF REQ NO Normal [facility] Comment on above: Performed By: #### C BC #### [facility] [address] [place] [address] Dr. Marlee Faria MCH (RBC) [Entitic mass] 33.0 pg Normal 25.9-34.0 [facility] Comment on above: Performed By: #### C BC #### [facility] [address] [place] [address] Dr. Marlee Faria MCHC (RBC) [Mass/Vol] 34.4 g/dL Normal 29.9-35.2 [facility] Comment on above: Performed By: #### C BC #### [facility] [address] [place] [address] Dr. Marlee Faria MCV (RBC) [Entitic vol] 96.0 fL Critically high 80.0-94 .0 [facility] Comment on above: Performed By: #### C BC #### [facility] [address] [place] [address] Dr. Marlee Faria MONO # 0.4 103/ul Normal 0.3-0.8 [facility] Comment on above: Performed By: #### C BC #### [facility] [address] [place] [address] Dr. Marlee Faria Monocytes/100 WBC (Bld) 9.4 % Normal 1.7-12.0 [facility] Comment on above: Performed By: #### C BC #### [facility] [address] [place] [address] Dr. Marlee Faria NEUT # 2.5 103/ul Normal 1.4-6.5 [facility] Comment on above: Performed By: #### C BC #### [facility] [address] [place] [address] Dr. Marlee Faria Neutrophils/100 WBC (Bld) 60.2 % Normal 43.0-75.0 [facility] Comment on above: Performed By: #### C BC #### [facility] [address] [place] [address] Dr. Marlee Faria Platelet mean volume (Bld) [Entitic vol] 10.3 fL Normal 9.5-13.5 [facility] Comment on above: Performed By: #### C BC #### [facility] [address] [place] [address] Dr. Marlee Faria PLT 205 103/ul Normal 150-450 [facility] Comment on above: Performed By: #### C BC #### [facility] [address] [place] [address] Dr. Marlee Faria RBC 4.51 106/ul Critically low 4.70-6.10 [facility] Comment on above: Performed By: #### C BC #### [facility] [address] [address] [address] Marlee Faria WBC 4.2 103/ul Normal 4.0-11.0 [facility] Comment on above: Performed By: #### C BC #### [facility] [address] [address] [address] Marlee Faria LIPID PROFILEon 04-07-2022 CHOL-HDL RATIO NORM SEE BELOW Normal [facility] Comment on above: Result Comment: 3.3 - 4.4 LOW RISK 4.4 - 7.1 AVERAGE RISK 7.1 - 11.0 MODERATE RISK >11.0 HIGH RISK Performed By: #### L IPID, CMP #### [facility] [address] [address] [address] Marlee Faria Cholesterol [Mass/Vol] 232 mg/dL Critically high <=200 [facility] Comment on above: Performed By: #### L IPID, CMP #### [facility] [address] [address] [address] Marlee Faria Cholesterol in HDL [Mass/Vol] 46 mg/dL Normal 40-60 [facility] Comment on above: Performed By: #### L IPID, CMP #### [facility] [address] [address] [address] Marlee Faria Cholesterol in LDL [Mass/Vol] 168.8 mg/dL Normal [facility] Comment on above: Performed By: #### L IPID, CMP #### [facility] [address] [address] [address] Marlee Faria Cholesterol.total/Choles terol in HDL [Mass ratio] 5.0 {ratio} Normal [facility] Comment on above: Performed By: #### L IPID, CMP #### [facility] [address] [place] [address] Dr. Marlee Faria HDL NORMAL > or = 60 mg/dl - LO W CARDIOVASCULAR RISK <40 mg/dl - HIGH CARDIOVASCULAR RISK Normal [facility] Comment on above: Performed By: #### L IPID, CMP #### [facility] [address] [place] [address] Dr. Marlee Faria LDL CALC NORMAL SEE BELOW Normal [facility] Comment on above: Result Comment: <100 mg/dl OPTIMAL 100 - 129 mg/dl NEAR OR ABOVE OPTIMAL 130 - 159 mg/dl BORDERLINE HIGH 160 - 189 mg/dl HIGH >190 mg/dl VERY HIGH Performed By: #### L IPID, CMP #### [facility] [address] [address] [address] Marlee Faria Triglyceride [Mass/Vol] 86 mg/dL Normal <=150 [facility] Comment on above: Performed By: #### L IPID, CMP #### [facility] [address] [place] [address] Dr. Marlee Faria VLDL CALC 17.2 mg/dL Normal [facility] Comment on above: Performed By: #### L IPID, CMP #### [facility] [address] [place] [address] Dr. Marlee Faria PROF 14(COMP METB)on 022 Albumin [Mass/Vol] 3.7 g/dL Normal 3.4-5.0 [facility] Comment on above: Performed By: #### L IPID, CMP #### [facility] [address] [place] [address] Dr. Marlee Faria Albumin/Globulin [Mass ratio] 0.8 {ratio} Normal [facility] Comment on above: Performed By: #### L IPID, CMP #### [facility] [address] [place] [address] Dr. Marlee Faria ALP [Catalytic activity/Vol] 58 U/L Normal 46-116 [facility] Comment on above: Performed By: #### L IPID, CMP #### [facility] [address] [place] [address] Dr. Marlee Faria ALT [Catalytic activity/Vol] 32 U/L Normal 16-63 [facility] Comment on above: Performed By: #### L IPID, CMP #### [facility] [address] [place] [address] Dr. Marlee Faria Anion gap [Moles/Vol] 12.1 mmol/L Normal [facility] Comment on above: Performed By: #### L IPID, CMP #### [facility] [address] [place] [address] Dr. Marlee Faria AST [Catalytic activity/Vol] 23 U/L Normal 15-37 [facility] Comment on above: Performed By: #### L IPID, CMP #### [facility] [address] [place] [address] Dr. Marlee Faria Bilirubin [Mass/Vol] 0.5 mg/dL Normal 0.2-1.0 [facility] Comment on above: Performed By: #### L IPID, CMP #### [facility] [address] [place] [address] Dr. Marlee Faria Calcium [Mass/Vol] 9.0 mg/dL Normal 8.5-10.1 [facility] Comment on above: Performed By: #### L IPID, CMP #### [facility] [address] [place] [address] Dr. Marlee Faria Chloride [Moles/Vol] 104 mmol/L Normal 98-107 [facility] Comment on above: Performed By: #### L IPID, CMP #### [facility] [address] [place] [address] Dr. Marlee Faria CO2 [Moles/Vol] 27.1 mmol/L Normal 21.0-32.0 [facility] Comment on above: Performed By: #### L IPID, CMP #### [facility] [address] [place] [address] Dr. Marlee Faria Creatinine [Mass/Vol] 0.86 mg/dL Normal 0.70-1.30 [facility] Comment on above: Performed By: #### L IPID, CMP #### [facility] [address] [place] [address] Dr. Marlee Faria EGFR-AF IRAQI >60 Normal >=60 [facility] Comment on above: Performed By: #### L IPID, CMP #### [facility] [address] [place] [address] Dr. Marlee Faria EGFR-NON AF IRAQI >60 Normal >=60 [facility] Comment on above: Performed By: #### L IPID, CMP #### [facility] [address] [place] [address] Dr. Marlee Faria Globulin (S) [Mass/Vol] 4.5 g/dL Normal [facility] Comment on above: Performed By: #### L IPID, CMP #### [facility] [address] [place] [address] Dr. Marlee Faria Glucose [Mass/Vol] 94 mg/dL Normal 74-106 [facility] Comment on above: Performed By: #### L IPID, CMP #### [facility] [address] [place] [address] Dr. Marlee Faria Potassium [Moles/Vol] 4.2 mmol/L Normal 3.5-5.1 [facility] Comment on above: Performed By: #### L IPID, CMP #### [facility] [address] [place] [address] Dr. Marlee Faria Protein [Mass/Vol] 8.2 g/dL Normal 6.4-8.2 [facility] Comment on above: Performed By: #### L IPID, CMP #### [facility] [address] [place] [address] Dr. Marlee Faria Sodium [Moles/Vol] 139 mmol/L Normal 136-145 [facility] Comment on above: Performed By: #### L IPID, CMP #### [facility] [address] [place] [address] Dr. Marlee Faria Urea nitrogen [Mass/Vol] 16.0 mg/dL Normal 7.0-18.0 [facility] Comment on above: Performed By: #### L IPID, CMP #### [facility] [address] [place] [address] Dr. Marlee Faria Urea nitrogen/Creatinine [Mass ratio] 18.6 mg/mg Normal [facility] Comment on above: Performed By: #### L IPID, CMP #### [facility] [address] [place] [address] Dr. Marlee Faria US SCROTUMon 07-14-2021 [place] [...] KARSTEN ADORNO Date: 2021-07-14 17:37 Normal [facility] Covid-19 PCR ([facility])on 04-29 SARS-CoV-2 (COVID-19) RNA ABHI+probe Ql (Unsp spec) Not detected Normal NOT DETECTED [facility] Comment on above: Result Comment: This test is not yet approved or cleared by the [place] FDA. When there are no FDA-approved or cleared tests available, and other criteria are met, FDA can make tests available under an emergency access mechanism called an Emergency Use Authorization (EUA). The EUA for this test is supported by the [place] of Health and Human Service's (HHS's) declaration [...] consistent with SARS-CoV-2. Performed By: #### C SHERRY, EBENEZERS #### [facility] [address] [place] [address] Mauro Chau SYMPTOMATIC COVID-19 ANTIGEN on 05-26-2021 EUA Statement SEE BELOW Normal [facility] Comment on above: Result Comment: This test [...] is revoked sooner. Performed By: #### C EBENEZER POWELLS #### [facility] [address] [place] [address] Mauro Chau SARS-CoV-2 (COVID-19) RNA ABHI+probe Ql (Unsp spec) Negative Normal NEGATIVE [facility] Comment on above: Result Comment: CONF IRMATION BY PCR PENDING PER CDC GUIDELINES/ SYMPTOMATIC PATIENT. Performed By: #### C SHERRY, CVDZOEYS #### [facility] [address] [place] [address] Mauro Chau Rosalia 11-01-2020 CNPN Telephone (AGCARDPOB ) MAYRA RHOADES ([id number]) 1970 M Date Time Provider Department 11/01/20 TANNER BROWN AGCARDPOB During your visit today, we recorded the [...] Allergies) Date Reviewed: 03/13/2020 [facility] Kranthi - Fully Assessed Reason for Visit: Results [...] COMPOUNDED PRESCRIPTION Unknown steroid cream for pso* [id number]- LUTEIN 1* Take one(1) tablet daily. Problem List As Of Date 11/01/2020 Noted Resolved PREMATURE VENTRICULAR CONTRACTIONS (PVCs): symp*10/07/2007 PAROXYSMAL SUPRAVENTRICULAR TACHYCARDIA: adenos*10/07/2007 Varicose veins of lower extremities with other *04/24/2011 Obesity, Class I, BMI 30-34.9 [E66.9] 03/13/2020 Premature ventricular contractions (PVCs) (VPCs* Palpitations [R00.2] 03/13/2020 Essential (primary) hypertension [I10] 10/16/2020 COVID-19 [U07.1] 10/16/2020 Encounter Status:Closed by TANNER BROWN MD on 11/01/20 [facility] Otheron 11-01-2020 [facility] CNCOon 03-27-2020 CNCO Letter Text [facility] CNPNon 03-27-2020 CNPN Telephone (AGCARDPOB ) MAYRA RHOADES ([id number]) 1970 M Date Time Provider Department 03/27/20 TANNER BROWN AGCARDPOViji During your visit today, we recorded the following information about you: Fern Calderon 03/27/2020 9:45 AM Signed Centralized scheduling attempted to call patient twice to schedule his Echo. He did not answer or return any calls. I am sending him a letter to call in and schedule. Allergies As of Date: 03/27/2020 (No Known Allergies) Date Reviewed: 03/13/2020 [facility] Crisostomo - Fully Assessed Reason for Visit: Preparations [...] COMPOUNDED PRESCRIPTION Unknown steroid cream for pso* RJEFSIKH-KAHF-[id number]-FA- LUTEIN 1* Take one(1) tablet daily. Problem List As Of Date 03/27/2020 Noted Resolved PREMATURE VENTRICULAR CONTRACTIONS (PVCs): symp*10/07/2007 PAROXYSMAL SUPRAVENTRICULAR TACHYCARDIA: adenos*10/07/2007 Varicose veins of lower extremities with other *04/24/2011 Obesity, Class I, BMI 30-34.9 [E66.9] 03/13/2020 Premature ventricular contractions (PVCs) (VPCs* Palpitations [R00.2] 03/13/2020 Encounter Status:Closed by FERN CALDERON on 03/27/20 [facility] CNOVon 03-13-2020 CNOV Office Visit (AGCARDPOB) MAYRA RHOADES ([id number]) 1970 M Date Time Provider Department 03/13/20 2:00 PM TANNER BROWN AGCARDPOViji During your visit today, we recorded the following information about you: Pulse Blood pressure Weight Height 86/minute 132/70 108.9 kg 1.829 m Hayley Crisostomo CMA 03/13/2020 1:26 PM Signed No cardiac complaints today. FRANCES Hurst MD 03/13/2020 4:51 PM Signed PRIMARY CARE PHYSICIAN: Sarwat Way MD ([facility]) [address] [place] [address] REFERRING PHYSICIAN: Sarwat Way MD ([facility]) [address] [facility] [address] Patient Care Team: Sarwat Way as PCP - General (Internal Medicine) CHIEF COMPLAINT: Establish care again for palpitations, arrhythmia HISTORY OF PRESENT ILLNESS: Mr. Rhoades is a 50 year old male who presents today to reestablish care with [facility] for intermittent palpitations and arrhythmia. He was diagnosed or began experiencing symptoms of arrhythmia and tachycardia in about 1999. In about 2006 he was documented to have supraventricular tachycardia (SVT) by [facility], which my previous notes describe as showing regular short RP narrow complex tachycardia 180 bpm. The SVT abruptly terminated after administration of intravenous adenosine. 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 The arrhythmia was refractory to medical therapy. In October 2007, while I was still working at [facility] in [place], I performed an EP study. This did not reveal inducible SVT, and there was no finding of an accessory pathway. Mr. Rhoades continues to experience palpitations and tachycardia. In August 2009 at [facility] I performed a repeat EP study. [...] courtney pathways (physiologic) but no inducible SVT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 Brown - INGUINAL HERNIA REPAIR [...] MG/ML SUSP FOR INJECTION), Approximately every month GBYNPNMH-CUOL-RYL-FA- LUTEIN 18 MG-0.4 MG-250 MCG TAB, Take one(1) tablet daily. celecoxib (CELEBREX) 200 mg capsule, TAKE 1 TABLET BY MOUTH EVENING PRIOR TO OPERATION, 1 TABLET MORNING OF OPERATION, THEN 1 TWICE DAILY HYDROcodone-acetamino phen (NORCO) 5-325 mg per tablet, TAKE 1 [...] of consciousness. Endo/Heme/Allergies: Does not bruise/bleed easily. Psychiatric/Behaviora l: Negative for depression, memory loss and substance abuse. The patient is not nervous/anxious. PHYSICAL EXAMINATION: BP 132/70 Pulse 86 Ht 6' 0 (1.83m) Wt 240 lb (108.9kg) SpO2 98% BMI 32.54 kg/(m2). Physical Exam CARDIOVASCULAR MEDICINE TESTING: Electrocardiogram: Sinus rhythm 77 bpm; normal conduction intervals (GA 144 ms, QRS 86 ms); no WPW [...] healthcare provider's instructions for treatment. Developed by [employer]. Published by [employer]. Copyright ?2013 [employer] and/or one of its subsidiaries. All rights reserved. Referring Provider: SARWAT WAY [[id number]] Allergies As of Date: 03/13/2020 (No Known Allergies) Date Reviewed: 03/13/2020 Reviewed by: [facility] Kranthi - Fully Assessed Reason for Visit: New Patient [172] Cmt: re-establish care PVC'S Primary Visit Diagnosis:Palpitation s [R00.2] Other Visit Diagnoses:PAROXYSMAL SUPRAVENTRICULAR TACHYCARDIA: adenosine sensitive, short R-P narrow complex tachycardia [I47.9] Premature ventricular contractions (PVCs) (VPCs) [I49.3] Obesity, Class I, BMI 30-34.9 [E66.9] Order(s):ECG B/O W INTERP (MED OFFICE) [ECG06] Order #: [id number] ECHO [[id number]] Order #: [id number]: 1 FUTURE Prescriptions as of 03/13/2020 Sig: [...] KENALOG-40 INJECTION 40 MG/ML* Approximately every month FKLGGXSK-KEFB-CFN-FA- LUTEIN 1* Take one(1) tablet daily. CELECOXIB 200 [...] healthcare provider's instructions for treatment. Developed by [employer]. Published by [employer]. Copyright ?2014 [employer] and/or one of its subsidiaries. All rights reserved. Visit Notes: >> Hayley Crisostomo Wed Mar 13, 2020 1:13 PM Status: Signed No cardiac complaints today. Hayley Crisostomo CMA Disposition: Return in about 6 months (around 09/12/2020) for appt with Dr. Brown or EILEEN CARROLLN, with EKG. Follow-up and Disposition History Recorded Letter Text Encounter Status:Closed by TANNER BROWN MD on 03/13/20 Normal [facility] PROGRESSon 03-13-2020 PROGRESS HNO ID: [id number] Author: Tanner Brown Service: ? Author Type: Physician Type: Progress Notes Filed: 03/13/2020 4:51 PM Note Text: PRIMARY CARE PHYSICIAN: Sarwat Way MD ([facility]) [address] [place] [address] REFERRING PHYSICIAN: Sarwat Way MD ([facility]) [address] [facility] [address] Patient Care Team: Sarwat Way as PCP - General (Internal Medicine) CHIEF COMPLAINT: Establish care again for palpitations, arrhythmia HISTORY OF PRESENT ILLNESS: Mr. Rhoades is a 50 year old male who presents today to [facility] with [facility] for [facility] pal[facility]ations and arrhythmia. He was diagnosed or began experiencing symptoms of arrhythmia and tachycardia in about 1999. In about 2006 he was documented to have supraventricular tachycardia (SVT) by [facility], which my previous notes describe as showing regular short RP narrow complex tachycardia 180 bpm. The SVT abruptly terminated after administration of intravenous adenosine. 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 The arrhythmia was refractory to medical therapy. In October 2007, while I was still working at [facility] in [place], I performed an EP study. This did not reveal inducible SVT, and there was no finding of an accessory pathway. Mr. Rhoades continues to experience palpitations and tachycardia. In August 2009 at [facility] I performed a repeat EP study. [...] courtney pathways (physiologic) but no inducible SVT; [facility], Dr. 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 Brown - INGUINAL HERNIA REPAIR [...] MG/ML SUSP FOR INJECTION), Approximately every month WNLLRKKS-NYMR-LLQ-FA- LUTEIN 18 MG-0.4 MG-250 MCG TAB, Take one(1) tablet daily. celecoxib (CELEBREX) 200 mg capsule, TAKE 1 TABLET BY MOUTH EVENING PRIOR TO OPERATION, 1 TABLET MORNING OF OPERATION, THEN 1 TWICE DAILY HYDROcodone-acetamino phen (NORCO) 5-325 mg per tablet, TAKE 1 [...] of consciousness. Endo/Heme/Allergies: Does not bruise/bleed easily. Psychiatric/Behaviora l: Negative for depression, memory loss and substance abuse. The patient is not nervous/anxious. PHYSICAL EXAMINATION: BP 132/70 Pulse 86 Ht 6' 0 (1.83m) Wt 240 lb (108.9kg) SpO2 98% BMI 32.54 kg/(m2). Physical Exam CARDIOVASCULAR MEDICINE TESTING: Electrocardiogram: Sinus rhythm 77 bpm; normal conduction intervals (GA 144 ms, QRS 86 ms); no WPW [...] with EKG. Tanner Brown MD 03/13/2020 Normal [facility] Vital Signs Date Time Vital Sign Value Performing Clinician Facility 05-08-2025 11:01-0400 Body height 182.[address] DO Work Phone: [facility] 05-08-2025 11:01-0400 Body mass index (BMI) [Ratio] 33.4 kg/m2 Sarwat Ball DO Work Phone: [facility] 05-08-2025 11:01-0400 Body weight 111.69 kg Sarwat Ball DO Work Phone: [facility] 05-08-2025 11:01-0400 Diastolic blood pressure 77 mm[Hg] Sarwat Ball DO Work Phone: [facility] 05-08-2025 11:01-0400 Heart rate 88 /min Sarwat Ball DO Work Phone: [facility] 05-08-2025 11:01-0400 Respiratory rate 12 /min Sarwat Ball DO Work Phone: [facility] 05-08-2025 11:01-0400 Systolic blood pressure 151 mm[Hg] Sarwat Ball DO Work Phone: [facility] 01-25-2025 10:05-0400 Body height 182.88 cm Sarwat Ball DO Work Phone: [facility] 01-25-2025 10:05-0400 Body mass index (BMI) [Ratio] 32.5 kg/m2 Sarwat Ball DO Work Phone: [facility] 01-25-2025 10:05-0400 Body weight 108.86 kg Sarwat Ball DO Work Phone: [facility] 01-25-2025 10:05-0400 Diastolic blood pressure 90 mm[Hg] Sarwat Ball DO Work Phone: [facility] 01-25-2025 10:05-0400 Heart rate 78 /min Sarwat Ball DO Work Phone: [facility] 01-25-2025 10:05-0400 Systolic blood pressure 150 mm[Hg] Sarwat Ball DO Work Phone: [facility] 12-07-2024 10:58-0400 Diastolic blood pressure 76 mm[Hg] Sarwat Ball DO Work Phone: [facility] 12-07-2024 10:58-0400 Heart rate 90 /min Sarwat Ball DO Work Phone: [facility] 12-07-2024 10:58-0400 Respiratory rate 18 /min Sarwat Ball DO Work Phone: [facility] 12-07-2024 10:58-0400 SaO2% (BldA) [Mass fraction] 97 % Sarwat Ball DO Work Phone: [facility] 12-07-2024 10:58-0400 Systolic blood pressure 144 mm[Hg] Sarwat Ball DO Work Phone: [facility] 12-07-2024 09:55-0400 Body height 182.88 cm Sarwat Ball DO Work Phone: [facility] 12-07-2024 09:55-0400 Body weight 108.86 kg Sarwat Ball DO Work Phone: [facility] 11-13-2024 13:46-0500 Body height 182.88 cm [facility] 11-13-2024 13:46-0500 Body mass index (BMI) [Ratio] 34.3 kg/m2 [facility] 11-13-2024 13:46-0500 Body weight 114.81 kg [facility] 11-13-2024 13:46-0500 Diastolic blood pressure 75 mm[Hg] [facility] 11-13-2024 13:46-0500 Heart rate 80 /min [facility] 11-13-2024 13:46-0500 Respiratory rate 12 /min [facility] 11-13-2024 13:46-0500 Systolic blood pressure 150 mm[Hg] [facility] 08-15-2024 14:20-0500 Body height 182.88 cm [facility] 08-15-2024 14:20-0500 Body mass index (BMI) [Ratio] 32.7 kg/m2 [facility] 08-15-2024 14:20-0500 Body weight 109.54 kg [facility] 08-15-2024 14:20-0500 Diastolic blood pressure 79 mm[Hg] [facility] 08-15-2024 14:20-0500 Heart rate 75 /min [facility] 08-15-2024 14:20-0500 Respiratory rate 12 /min [facility] 08-15-2024 14:20-0500 Systolic blood pressure 186 mm[Hg] [facility] 10-28-2023 09:15-0500 Body height 182.[address] Other [facility] Other 10-28-2023 09:15-0500 Body mass index (BMI) [Ratio] 32.46 kg/m2 Sarwat Ball Other [facility] Other 10-28-2023 09:15-0500 Body weight 108.59 kg Sarwat Ball Other [facility] Other 10-28-2023 09:15-0500 Diastolic blood pressure 82 mm[Hg] Sarwat Ball Other [facility] Other 10-28-2023 09:15-0500 Respiratory rate 12 /min Sarwat Ball Other [facility] Other 10-28-2023 09:15-0500 Systolic blood pressure 147 mm[Hg] Sarwat Ball Other [facility] Other Encounters Encounter Date Encounter Type Care Provider Facility Start: 05-08-2025 End: 05-08-2025 ambulatory [facility] Start: 05-08-2025 End: 05-08-[address] DO Work Phone: [facility] Work Phone: Start: 05-08-2025 End: 05-08-2025 Patient encounter procedure Sarwat Way DO [facility] Work Phone: Start: 05-04-2025 Non-patient / Non-visit [facility] Work Phone: Start: 05-03-2025 Non-patient / Non-visit Aubrey lam DO -[facility] Work Phone: Start: 05-02-2025 Non-patient / Non-visit Diogenes Martininoris Wallace DO -[facility] Work Phone: Start: 02-27-2025 End: 02-27-2025 ambulatory Sarwat Ball DO Work Phone: [facility] Work Phone: Start: 02-27-2025 End: 02-27-2025 Patient encounter procedure Sarwat Ball DO Work Phone: [facility] Phys[facility] Work Phone: Start: 01-25-2025 End: 01-25-2025 ambulatory Sarwat Ball DO Work Phone: [facility] Work Phone: Start: 01-25-2025 End: 01-25-2025 Patient encounter procedure Sarwat Ball DO Work Phone: [facility] Physician [facility] Work Phone: Start: 12-07-2024 Non-patient / Non-visit Daisy in Ball DO Work Phone[facility] Work Phone: Start: 12-07-2024 End: 12-07-2024 Admission to same day surgery center Sarwat Ball DO Work Phone: [facility] Work Phone: Start: 12-07-2024 End: 12-07-2024 ambulatory Sarwat Ball DO Work Phone: [facility] Work Phone: Start: 11-13-2024 End: 11-13-2024 ambulatory [facility] Work Phone: Start: 11-13-2024 End: 11-13-2024 Patient encounter procedure [facility] Work Phone: Start: 11-07-2024 Non-patient / Non-visit [facility] Work Phone: Start: 11-03-2024 Non-patient / Non-visit [facility] Work Phone: Start: 09-06-2024 End: 09-06-2024 ambulatory [facility] Facility:[facility] Start: 09-06-2024 Non-patient / Non-visit [facility] Work Phone: Start: 08-15-2024 End: 08-15-2024 ambulatory [facility] Work Phone: Start: 08-15-2024 End: 08-15-2024 Encounter for general adult medical examination without abnormal findings [facility] Start: 08-15-2024 End: 08-15-2024 Patient encounter procedure [facility] Work Phone: Start: 08-13-2024 Patient encounter status [facility] Start: 08-11-2024 Non-patient / Non-visit [facility] Work Phone: Start: 07-27-2024 End: 07-27-2024 ambulatory [facility] Work Phone: Start: 07-27-2024 End: 07-27-2024 Patient encounter procedure [facility] Work Phone: Start: 04-13-2024 End: 04-13-2024 ambulatory [facility] Work Phone: Start: 04-13-2024 End: 04-13-2024 Patient encounter procedure [facility] Work Phone: Start: 03-21-2024 Non-patient / Non-visit [facility] Work Phone: Start: 10-28-2023 End: 10-28-2023 ambulatory Sarwat Seamus Other [facility] Other Start: 10-28-2023 Office outpatient vi sit [address] [facility] Start: 03-10-2023 End: 03-10-2023 ambulatory Shalonda Jailyn Other [facility] Other Start: 03-10-2023 Nursing evaluation o f patient and report Shalonda Jailyn [facility] Start: 11-17-2022 End: 11-17-[address] Other [facility] Other Start: 11-17-2022 Nursing evaluation o f patient and report Sarwat Way [facility] Start: 09-10-2022 Adult health examination Sarwat [address] Other [facility] Other Start: 04-08-2022 Encounter for genera l adult medical examination without abnormal findings DR SARWAT WAY [facility] Start: 04-07-2022 End: 04-08-[address] SAR[address] Facility:[facility] Start: 04-07-2022 End: 04-08-2022 Encounter for general adult medical examination without abnormal findings DR SARWAT WAY Facility:[facility] Start: 09-22-2021 End: 09-22-[address] Facility:[facility] Start: 07-14-2021 End: 07-15-[address] SAR[address] Facility:[facility] Start: 05-26-2021 End: 05-27-[address] SAR[address] Facility:[facility] Start: 11-01-2020 End: 11-01-2020 Telephone encounter Tanner Brown Work Phone: [facility] Comment on above: Results Start: 11-01-2020 End: 11-01-2020 Subsequent hospital visit by physician Card Lab Stress [facility] Comment on above: Paroxysmal tachycard ia, unspecified (HCC) [I47.9] Procedures Date Procedure Procedure Detail Performing Clinician Start: 12-07-2024 Colonoscopy Sarwat Hallman all DO Work Phone: Start: 04-07-[address] LINARES IN [facility] Comment on above: Performed By: #### P [facility] #### [facility] [address] [address] [address] Marlee Faria Start: 11-01-2020 Echo tthrc r-t 2d w/wom-mode compl spec&colr d Tanner Brown Work Phone: Depression screening [address] Other Plan of Treatment Date Care Activity Detail Author Start: 12-07-2024 [facility] Start: 11-13-2024 Patient referral [facility] Work Phone: Start: 05-28-2020 Influenza vaccination INFLUENZA (#1) [facility] Start: 02-13-2017 DIABETES SCREEN DIABETES SCREEN [facility] Start: 02-13-2007 LIPID SCREEN LIPID SCREEN [facility] Start: 02-13-1991 Urine microalbumin profile DTAP,TDAP,TD (1 - Tdap) [facility] Start: 02-13-1990 ANNUAL PCP TEAM CHRONIC DISEASE VISIT ANNUAL PCP TEAM CHRONIC DISEASE VISIT [facility] Start: 02-13-1990 BP CONTROLLED (<130/80) BP CONTROLLED (<130/80) [facility] Start: 02-13-1990 HEPATITIS C SCREENING HEPATITIS C SCREENING [facility] Start: 02-13-1990 HIV SCREENING HIV SCREENING [facility] Electromyography [facility] Patient Education Hemorrhoids Hi gh-fiber diet Diverticulosis Know your Meds [facility] Work Phone: Patient referral [facility] Work Phone: [facility] Payers Date Payer Category Payer Self-pay 2024 Private Health Insurance [id number] 2020 Unknown MMO MMO [employer] [id number] 2020-Present PPO [id number] 2015 Unknown MMO MMO [employer] [id number] 2015-Present PPO [id number] 1972 Unknown [id number] 1972 Unknown [id number] 1972 Unknown [id number] 1972 Unknown [id number] 1959 Private Health Insurance [id number] 1959 Unknown [id number] 1959 Unknown [id number] Private Health Insurance [id number] Private Health Insurance [employer] [id number] Unknown [id number] Unknown [id number] Unknown [id number] Social History Date Type Detail Facility Start: 11-01-2020 Tobacco smoking stat us NHIS Former smoker [facility] Start: 09-27-1989 End: 06-27-2009 History of tobacco use Current smoker [facility] Start: 09-27-1989 End: 06-27-2009 History of tobacco use Cigarette Smoker [facility] Start: 11-01-2020 Cigarettes smoked current (pack per day) - Reported [facility] Start: 11-01-2020 Tobacco use and exposure Never used [facility] Start: 11-01-2020 Alcohol intake Ex-drinker (finding) [facility] Start: 02-18-2011 Alcohol Comment beer once a month [facility] Start: 1970 Sex Assigned At Not on file [facility] Exposure to SARS-CoV -2 (event) Not sure [facility] Sex Assigned At Sex Assigned At Bir th [facility] Other Start: 1970 Sex Assigned At Male F [facility] Tobacco smoking stat NHIS Unknown if ever smoked [facility] Work Phone: Start: 08-15-2024 End: 02-27-2025 Sex Male (finding) [facility] Start: 12-07-2024 [facility] Goals Date Patient Goal Desired Activity /State Clinical Notes 09-22-2021 to 05-08-2025 Note Date & Type Note Facility 05-08-2025 Note [place] Electrophysiology Consult Note [place] [facility] - [facility] Reason for visit: Afib HPI: Mayra Rhoades is a 55 y.o. year old with past medical history of EPS at [facility] in 2007 but no ablation was done as no SVT was induced (report seen in [facility]) and therafter had ?SVT or PVC ablation in 2008 at [facility] (later under [facility] with no records available) was been noted to have atrial fibrillation for the past 5 to 6 years. He was initially followed up in [facility] and subsequently he stopped his follow-up care that. He was recently admitted to [facility] with A-fib with RVR and at that [...] been on the high side. Ads per [facility] note in 2007 He reports having had problems with tachycardia in the past with an episode that occurred approximately 8 years ago at which time he sought medical attention at a local ED. He states that ETOH may have been a large factor at that time. He recalls receiving Adenosine for rapid heartbeat that resolved the tachycardia. He states that from [id number] he did have several other episodes which required medical intervention at a local ED while he was driving. He has tried vagal manuvers in the past without success. His most recent episode occurred 06/2007 at which time he again sought medical treatment in [place], [place]. He states that he had felt [...] muscle aches, no muscle weakness, joint pain+, (more content not included)... [facility] 04-27-2025 Evaluation note Diagnosis Onset Date Resolution Atrial fibrillation acute Augus t 2024 10:55am Hypercholesterolemia acute 2024 10:55am Hypertension acute May 08, 2025 10:55am Obesity acute May 08 10:55am PVC (premature ventricular contraction) acute May 08 10:55am [facility] Work Phone: 1(614) 768-868605-01-2025 Evaluation note* Diagnosis Onset Date Resolution Status Admit Date IBS (irritable bowel syndrome) acute January 25, 2025 9:59am [facility] Work Phone: 1(999) 111-428603-13-2025 [place] [address] Colonoscopy Procedure Report Signed Patient: Mayra Rhoades MR#: [id number] : 1970 Acct:[id number] Age/Sex: 54 / M Adm Date: 5 Loc: Room: Type: [facility] Attending Dr: Iván Mcnulty MD Copies to: DO Iván Rm MD~ Colonoscopy Date/Provider 12/07/2024 Iván Mcnulty MD Narrative Procedure: Colonoscopy to terminal ileum Indication: This is a 54-year-old male who presents for colonoscopy to evaluate rectal bleeding. Hestates that he had a single episode of rectal bleeding after forcefully passing a large, hard stoolthat he shot out this was followed by several episodes of diarrhea with bright red blood. About 6in total and then spontaneous resolution. No further bleeding since. He is not onany blood thinners. Pre-operative diagnosis: Rectal bleeding Post-operative diagnosis: Hemorrhoids, diverticulosis Sedation: propofol per anesthesia dept O2 oximetry, hemodynamic monitoring was performed pre, during, and post procedure. Patient was identified, H&P completed, patient was given full explanation of the procedure as well as associatedrisks and written consent wasobtained prior to procedure. Patient expressed complete understanding of the procedure as well as alternatives to the procedure and to anesthesia and agreed to proceed with the procedure as indicated. Patient was immediately reassessed prior to IV sedation. Under IV sedation, patient was placed in the left lateral decubitus position. Digital rectal exam was performed and normal. Colonoscope was inserted and passed proximally to the cecum, which was identified by the ileocecal valve, appendiceal orifice and cecal floor. Colonoscope was slowly withdrawnwith the findings as below. [place] bowel prep score was good. Findings: Cecum: Normal. Ascending colon: Normal. Hepatic flexure: Normal. Transverse colon: Normal. Splenic flexure: Normal. Descending colon: Normal. Sigmoid colon: Rare diverticula. Rectum: Normal. Retroflexed views: Moderate size hemorrhoids. Biopsy taken: no Complications: None EBL: minimal Recommendations: -Repeat colonoscopy in 10 years for screening -Bowel issues are consistent with IBS mixed type, could also be due to his testosterone use -We will have him follow-up with our nurse practitioners in the office for management of his bowel issues. If he continues to have bleeding from his hemorrhoids we will give him a referral to generalsurgery as these are too large for endoscopic management. -Follow up with PCP Following a period of recovery, patient was seen and given full explanation of the procedure. Patient tolerated the procedure well and will be discharged in satisfactory, stable condition. Iván Mcnulty MD Documented By: Iván Mcnulty MD 12/07/24 1017 Signed By: 12/07/24 1028 [facility]03-13-2025 [place] [address] Gastroenterology H&P Signed Patient: Mayra Rhoades MR#: [id number] : 1970 Acct:[id number] Age/Sex: 54 / M Adm Date: 5 Loc: Room: Type: [facility] Attending Dr: Iván Mcnulty MD Copies to: DO Iván Rm MD~ Date of Service: 12/07/2024 HISTORY & PHYSICAL: Patient's history with special attention to the cardiovascular, pulmonary systems and the current problem was reviewed with the patient immediately prior to the procedure. Present medications and doses reviewed in the EMR. Allergies and pertinent laboratory tests were also re viewedat this time in the EMR. The physical examination, as below, was then performed. Indication, assessment and HPI: This is a 54-year-old male who presents for colonoscopy to evaluaterectal bleeding. He states that he had a single episodeof rectal bleeding after forcefully passing a large, hard stool that he shot out this was followed by several episodes of diarrhea with brightred blood. About 6 in total and then [...] Iván Mcnulty MD 12/07/24 1016 Signed By: 12/07/24 1017 [facility]03-01-2025 History and physical note Author Iván Mcnulty [facility] Note Date/Time December 07, 2024 10: 17am [facility] [address] [place] [address] Gastroenterology H&P Signed Patient: Mayra Rhoades MR#: [id number] : 1970 Acct:[id number] Age/Sex: 54 / M Adm Date: 5 Loc: Room: Type: [facility] Attending Dr: Iván Mcnulty MD Copies to: [...] signed by Iván Mcnulty MD> 12/07/24 1017 [facility] Work Phone: 1(796) 723-840902-17-2025 Evaluation note* Diagnosis Onset Date Resolution Status Admit Date Carpal tunnel syndrome on brock th sides acute November 13 1:41pm Cholelithiasis acute October 282024 1:41pm Hypercholesterolemia acute 2024 1:41pm Hypertension acute October 1:41pm Obesity acute November 13, 2024 1:41pm PVC (premature ventricular contraction) acute November 13 1:41pm Rectal bleeding acute November 13, 2024 1:41pm [facility] Work Phone: 1(124) 526-920602-17-2025 Evaluation note* Diagnosis Onset Date Resolution Status Admit Date Carpal tunnel syndrome on brock th sides acute November 13 025 1:41pm Cholelithiasis acute October 282024 1:41pm Hypercholesterolemia acute 2024 1:41pm Hypertension acute October 1:41pm Obesity acute November 13, 2024 1:41pm PVC (premature ventricular contraction) acute November 13 025 1:41pm Rectal bleeding acute November 13, 2024 1:41pm IBS (irritable bowel syndrome) acute January 25, 2025 9:59am [facility] Work Phone: 1(950) 469-624511-19-2024 Evaluation note* Diagnosis Onset Date Resolution Status Admit Date Atrial fibrillation acute Novem 2023 2:19pm Hypercholesterolemia acute Nove mber th, 2024 2:19pm PVC (premature ventricular contraction) acute August 15 024 2:19pm Screening PSA (prostate spec ific antigen) acute August 15 024 2:19pm Weakness of left hand acute Jul 2:19pm Wellness examination acute 2023 2:19pm Hematochezia acute October 1:41pm Rectal bleeding acute November 13, 2024 1:41pm [facility] Work Phone: 1(807) 878-343702-01-2024 Evaluation note* Encounter Date Diagnosis Assessment Notes Treatment Notes Treatment Clinical Notes Oct, Acute right-sided low back pain with right-sided sciatica (ICD-10 - M54.41) ROM exercises, heat/ice and Voltaren Gel. XR if no improvement Consider PT Initiate tapering steroids to see if improves pain Oct, Acute right hip pain (ICD-10 - M25.551) ROM intact and nontender over bursa. Continue ROM, stretching exercises, ice/heat and Voltaren Gel. XR if no improvement [facility] Other 06-14-2023 Evaluation note* Encounter Date Diagnosis Assessment Notes Treatment Notes Treatment Clinical Notes Feb, Seasonal allergic rhinitis due to pollen (ICD-10 - J30.1) [facility] Other 02-21-2023 Evaluation note* Encounter Date Diagnosis Assessment Notes Treatment Notes Treatment Clinical Notes Oct, Seasonal allergic rhinitis due to pollen (ICD-10 - J30.1) [facility] Other 12-27-2021 NotePROCEDURE: XR TIB_FIB LT 2V [...] authenticated by: KARSTEN ADORNO Date: 2021-09-22 12:40[facility] note[facility] information availableC[facility] Work Phone: Evaluation note* Diagnosis Onset Date Resolution Status Admit Date Atrial fibrillation acute Novem eugenio 2023 2:19pm Hypercholesterolemia acute Nove mber 2023 2:19pm Lumbar spondylosis acute Novemb er 2023 2:19pm PVC (premature ventricular contraction) acute August 15, 024 2:19pm Screening PSA (prostate spec ific antigen) acute August 15, 2 024 2:19pm Wellness examination acute [facility] 2023 2:19pm [facility] Work Phone: History general Narrative - Reported* [...] hernia 2012 Hospitalization History see surgical history [facility] Other Hospital Discharge instructions Additional Instructions DISCHARGE [...] years. -Follow up with PCP. -Office number [phone].[facility] Work Phone: Reason for referral (narrative)No reason for referral information availableC[facility] Work Phone: Assessments Diagnosis PAROXYSMAL SUPRAVENTRICULAR TACHYCARDIA: adenosine sensitive, short R-P narrow complex tachycardia Paroxysmal tachycardia, unspecified Obesity, Class I, BMI 30-34.9 Obesity, unspecified Premature ventricular contractions (PVCs) (VPCs) Other premature beats Summary Purpose Family History No Family History Records Found Relationship Condition Age at Onset Recorded Date/T ana rosa maternal grandmother Myocardial infarction Unknown father Atrial fibrillation Unknown mother Atrial fibrillation Unknown Advance Directives No Advanced Directives Records Found Advance Directive Response Recorded Date/ Time Advance [...] Carpal tunnel syndrome on both sides Feb ruholt 2024 1:41pm Cholelithiasis November 13, 2024 1:41pm [...] Date Carpal tunnel syndrome on both sides Fe ruholt 2024 1:41pm Cholelithiasis November 13, 2024 1:41pm Hypercholesterolemia November 13, 2024 1:41pm Hypertension November 13, 2024 1:41pm Obesity November 13, 2024 1:41pm PVC (premature ventricular contraction) November 13, 2024 1:41pm Rectal bleeding November 13, 2024 1:41pm IBS (irritable bowel syndrome) January 25, 2025 9:59am Chief Complaint Admit Date rectal bleeding December 07, 2024 9:1 8am rectal bleeding December 07, 2024 10: 16am FOLLOW UP COLON / IBS January 25, 2025 9:59 am allergy shot February 27, 2025 3:34p m Reason for Visit Admit Date IBS (irritable bowel syndrome) January 25, 2025 9:59am Chief Complaint Admit Date allergy shot February 27, 2025 3:34p m Amb Documentation May 04, 2025 11: 21am hospital follow up May 08, 2025 10 :55am Reason for Visit Admit Date Atrial fibrillation May 08, 2025 10 :55am Hypercholesterolemia May 08, 2025 1 0:55am Hypertension May 08, 2025 10 :55am Obesity May 08, 2025 10 :55am PVC (premature ventricular contraction) May 08, 2025 10:55am Additional Source Comments Source Comments (unrecognize d section and content) In the event this informatio n is protected by the Federal Confidentiality of Alcohol and Drug Abuse Patient Records regulations: The Federal rules restrict any use of the information to criminally investigate or prosecute any alcohol or drug abuse patient.[facility] the event this information is protected by the Federal Confidentiality of Alcohol and Drug Abuse Patient Records regulations: The Federal rules restrict any use of the information to criminally investigate or prosecute any alcohol or drug abuse patient.[facility] Reason for Visit (unrecogniz ed section and content) Reason Comments Results Status Reason Specialty Diagnoses / Procedures Referred By Contact Referred To Contact Closed CARD LAB [facility] Diagnoses echo Procedures ECHO Tanner Brown [address] [place] [address] Card Lab [facility] [address] [place] [address] Telephone Encounter - Tanner Brown - 11/01/2020 10:54 PM EST Miscellaneous Notes (unrecog nized section and content) Please let Mr. Rhoades know that the echocardiogram testing showed no significant abnormalities, looked good. Tanner Brown MD November 01, 2020 10:54 PM documented in this encounter (unrecognized sect ion and content) No Status Records FoundNo Status Records FoundNo Status Records FoundNo Status Records Found INFORMATION SOURCE (unrecogn ized section and content) DATE CREATED AUTHOR 11/04/2020 [facility] DATE CREATED AUTHOR AUTHOR'S ORGANIZ ATION 04/14/2022 [facility] DATE CREATED AUTHOR AUTHOR'S ORGANIZ ATION 12/19/2024 [facility] DATE CREATED AUTHOR AUTHOR'S ORGANIZ ATION 05/19/2025 [facility] Care Teams (unrecognized sec tion and content) Team Status: Active Member Role Status Dates Sarwat Way DO Primary Care Provider Active Team Status: Inactive Member Role Status Dates Sarwat Way DO Primary Care Provider Active Start: December 07, 2024 End: December 07, 2024 Iván Mcnulty MD Attending Provider Active S tart: December 07, 2024 End: December 07, 2024 Team Status: Active Member Role Status [...] January 25, 2025 End: January 25, 2025 Team Status: Inactive Member Role Status Dates Sarwat Way DO Primary Care Provide r, Attending Provider Active Start: February 27, 2025 End: February 27, 2025 Team Status: Active Member Role Status Dates [...] End: April 13, 2024 Shalonda Glaser APRN NP-C Attending Provider Act chad Start: April 13, 2024 End: April 13, 2024 Team Status: Active Member Role Status Russell Way DO Primary Care Provide r, Attending Provider Active Start: August 11, 2024 Team Status: Inactive Member Role Status Dates Sarwat Way DO Primary Care Provide r, Attending Provider Active Start: August 15, 2024 End: August 15, 2024 Team Status: Active Member Role Status Russell Way DO Primary Care Provide r, Other Provider Active Start: September 06, 2024 José Miguel Álvarez MD Attending Provider Active Start: September 06, 2024 Team Status: Inactive Member Role Status Dates Sarwat Way DO Primary Care Provider Active Start: February 27, 2025 End: February 27, 2025 Sarwat Ball , DO Attending Provider Active Sta rt: February 27, 2025 End: February 27, 2025 Team Status: Active Member Role Status Dates Sarwat Way , DO Primary Care Provider Active Start: May 02, 2025 Diogenes Sosa , DO Attending Provider Active S tart: May 02, 2025 Team Status: Active Member Role Status Dates Sarawt Way , Primary Care Provider Active Start: May 03, 2025 Aubrey Badillo , DO Attending Provider Active St art: May 03, 2025 Team Status: Active Member Role Status Dates Sarwat Way , DO Primary Care Provider Active Start: May 04, 2025 Aubrey Badillo , DO Attending Provider Active St art: May 04, 2025 Team Status: Active Member Role Status Dates Sarwat Way , Primary Care Provider Active Start: May 04, 2025 Elizabet Choi CMA Attending Provider Active Start: May 04, 2025 Team Status: Inactive Member Role Status Dates Sarwat Way , Primary Care Provider Active Start: May 08, 2025 End: May 08, [address] , DO Attending Provider Active Sta rt: May 08, 2025 End: May 08, 2025 Goals (unrecognized section and content) Goals [...] BE BASED ON THE PRIMARY CLINICAL RECORDS. [employer] provides no warranty or guarantee of the accuracy or completeness of information in this document.
== END 2025-05-21 20:01 | disposition home or self-care (01) ==
LOC: SLEEP 05-22 07:06
DX: G47.33 Obstructive sleep apnea (adult) (pediatric) (principal)
CPT/HCPCS: 95810

== ENCOUNTER 2025-06-26 20:04 | Outpatient (OUT) | payer OTHER, SELFPAY ==
--- OUTSIDE RECORDS SUMMARY | 2024-08-17 11:15 | XMS_ITS ---
Author Organization [facility] Address [address] [place] [address] Care Team Providers Care Language Asst Name Role Phone STUART CARVALHO DO Primary Care Provider Manuel Gleason [phone] REASON FOR VISIT RIGHT KNEE, PEH, MENISCUS TEAR Encounters Encounter Location Date Provider Diagnosis [facility] [address] [place] [phone] 08/17/2024 Manuel Cook Pain, joint, knee, right M25.561 Assessments Encounter Date Diagnosis (ICD Code) Assessment Notes Treatment Notes Treatment Clinical Notes Section Notes 08/17/2024 Pain, joint, knee, right (ICD-10 - M25.561) Plan Of Treatment Next Appt Details Follow Up: 08/22, Reason: Progress Notes * RAMAN FINNHANDOB:1970 (55 yo M)Acc No.[id number]:08/17/2024 MRI Patient: MAYRA CHI Provider: Serge Cook MD :1970 A ge:54 Y S ex:Male Date:08/17/2024 Address:[address] [id number] Pcp:STUART CARVALHO DO Subjective: * Chief Complaints: * 1 . RIGHT KNEE, PEH, MENISCUS TEAR. * Medical History: Objective: * Vitals: Assessment: * Assessment: 1. P ain, joint, knee, right - M25.561 (Primary) Plan: * Treatment: * Procedure Codes: 7 3721 MRI Joint Lower Ext w/o Dye, Modifiers: RT * Follow Up: 10/22 Forms: * Images: * Electronic signature of Ankit Cook MD on 06/26/2025 at 08:10 PM EDT Sign off status: Pending * Provider: Serge Cook MD Date: 10/17/2023 Generated for Deja acosta/Glenn/Génesis on: 0 06/26/2025 08:10 PM EDT
--- OUTSIDE RECORDS SUMMARY | 2025-05-08 13:46 | XMS_ITS ---
Author Name Auto Generated Organization [facility] Care Team Providers Care Leather Softener Name Role Phone MOOK BONILLA Attending Unavailable Iván Mcnulty Attending Unavailable Iván Mcnulty Admitting Unavailable Seamus, Sarwat Primary Care Unavailable Seamus, Sarwat Admitting Unavailable Semaus, Sarwat Attending Unavailable Seamus, Sarwat Primary Care Unavailable PROBLEMS DATE TYPE CONDITION / CODE ATTENDING STATUS [facility] 05/08/2025 Admitting Diagnosis Paroxysmal atrial fibrillation / I48.0(ICD-10) MOOK BONILLA Active [facility] 12/07/2024 Unknown Hemorrhage of an us and rectum / K62.5(ICD-10) Iván Mcnulty [facility] 09/06/2024 Unknown Other symptoms a nd signs involving the musculoskeletal system / R29.898(ICD-10) [address] [facility] PROCEDURES No Procedure Records Found RESULTS 36 Observed: 06/26/2025 1:46 PM Status: COMPLETED Source: [facility] Prior authorization request for Eliquis 5mg Prior authorization processed and submitted to patient's insurance, awaiting determination from insurance in response to medication coverage. Cover My Meds Walker# [id number] Prior Authorization Approved Dates of Approval 05/27/2025 - 06/26/2026 Previous PA was extended until May 2026. ORDERS ONLY Observed: 05/09/2025 12:00 AM Status: COMPLETED Source: [facility] [id number] Mayra Rhoades M Date Provider Department Center 05/09/2025 [id number], HISTORICAL [facility] Family History Problem Relation Age of Onset Atrial fibrillation Mother Hypertension Mother Atrial fibrillation Father Family Status - Relation Status Age at Mother Alive Father Alive PROGRESS Observed: 05/08/2025 1:45 PM Status: COMPLETED Source: [facility] Electrophysiology Consult Note [place] [facility] - [facility] Reason for visit: Afib HPI: Mayra Rhoades is a 55 y.o. year old with past medical history of EPS at [facility] in 2007 but no ablation was done as no SVT was induced (report seen in Epic) and therafter had ?SVT or PVC ablation in 2008 at [facility] (later under [facility] with no records available) was been noted to have atrial fibrillation for the past 5 to 6 years. He was initially followed up in [facility] and subsequently he stopped his follow-up care that. He was recently admitted to [facility] with A-fib with RVR and at that time was seen by Dr. Kaila Mansfield. He was treated with diltiazem for rate control and given a 30-day event monitor with a follow-up for further consideration of cardioversion if he did not convert to sinus rhythm. He was subsequently discharged on Eliquis for stroke prevention. Patient states he has a previous history of A-Fib from 5 years ago and has had no problems until last week. Patient states he can feel his heart racing. Patient states his blood pressure has been on the high side. Ads per [facility] note in 2007 He reports having had problems with tachycardia in the past with an episode that occurred approximately 8 years ago at which time he sought medical attention at a local ED. He states that ETOH may have been a large factor at that time. He recalls receiving Adenosine for rapid heartbeat that resolved the tachycardia. He states that from [id number] he did have several other episodes which required medical intervention at a local ED while he was driving. He has tried vagal manuvers in the past without success. His most recent episode occurred 06/2007 at which time he again sought medical treatment in [place], [place]. 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 He had sudden onset of racing heart beat with associated lightheadedness and shortness of breath. He states having increased palpitations over the past two months that take his breath away and associated occasional left sided, deep chest discomfort that has resolved with time, described as pulled muscle. He denies nearsyncope, syncope, orthopnea, PND, or edema. He is active with daily activities and currently follows no routine exercise regime. Exercise treadmill test at OSH 08/22/07 revealed normal tradmill exercise test with patient exercising for 10.5 minutes achieving a HR of 168 bpm equivalent to 91 % of maximum predicted HR. METS 12.9. Cardiolite STRESS test 08/30/07 at OSH revealed: Abnormalcardiac nuclear imaging procedure with slight decrease attenuation seen inferiorly with subtle reperfusion of unknown significance. LVEF= 53% with slight decreased contractility seen in the septum, again of unknown significance. Echocardiogram on 08/12/07 at OSH revealed left ventricle normal sized with normal systolic wall motion. LVEF=60%. Right ventriclar size and function appear normal. The right atrium is normal size. The aortic valve morphology and fucntion appear normal. The aortic root and left atrium are normal size. The mitral valve was unremarkable. Doppler mitral inflow tract evaluation reveals normal diastolic function. The tricuspid valve exhibits 1 + TR. Estimated RV pressure is 40 mmHg. The pulmonic valve is unremarkable. No pericardial effusion is seen. PMH: Medical History[1] PSH: Surgical History[2] SH: Social Drivers of Health Tobacco Use: Medium Risk (05/08/2025) Patient History Smoking Tobacco Use: Former Smokeless Tobacco Use: Never Passive Exposure: Not on file Alcohol Use: Not on file Financial Resource Strain: Not on file Food Insecurity: Not on file Transportation Needs: Not on file Physical Activity: Not on file Stress: Not on file Social Connections: Not on file Intimate Partner Violence: Not on file Depression: Not on file Housing Stability: Not on file Utilities: Not on file Health Literacy: Not on file Allergies: Allergies[3] Weight: 112kg Visit Vitals Ht 1.829 m (6') Wt 112 kg (246 lb) BMI 33.36 kg/m??? Smoking Status Former BSA 2.39 m??? Meds: Medications Ordered Prior to Encounter[4] ROS: Cardio Basic Cardiovascular Symptoms: no lightheadedness, no leg edema, no syncope, no orthopnea, no PND, no claudication, Constitutional Constitutional: no fever, no night sweats, no significant weight gain, no significant weight loss, no exercise intolerance Eyes Eyes: no dry eyes, no irritation, no vision change ENMT Ears: no difficulty hearing, no ear pain Nose: no frequent nosebleeds, Mouth/Throat: no sore throat, no bleeding gums, no snoring, no dry mouth, no mouth ulcers, no oral abnormalities, no teeth problems Respiratory Respiratory: no cough, no wheezing, no coughing up blood, no sleep apnea Musculoskeletal Musculoskeletal: no muscle aches, no muscle weakness, joint pain+, no back pain, no swelling in the extremities Integumentary Skin no rash, no ulcer, no varicosities, no discoloration, no pruritus Neurologic Neurologic: no loss of consciousness, no weakness, no numbness, no seizures, no dizziness, no headaches Psychiatric Psych: no depression, feeling safe in relationship, no alcohol abuse, Hematologic/Lymphatic Hematologic/Lymphatic no swollen glands, no bruising Physical Exam: Constitutional General Appearance: well-nourished, well-developed, appears stated age Level of Distress: comfortable Eyes TAMIKA Neck Neck: supple, trachea midline Carotid Arteries: bilateral normal upstroke, no bruits Jugular Veins: normal jugular venous pressure Thyroid: not enlarged Lungs Respiratory Effort: unlabored Chest Exam: normal curvature, no thoracic deformity Auscultation: clear, no wheezing, no rales, no rhonchi Cardiovascular Chest wall: Rate And Rhythm: irregular Heart Sounds: normal S1, normal s2, no gallop Systolic Murmur: not heard Diastolic Murmur: not heard Extremities: no cyanosis, no edema, no peripheral signs of emboli Peripheral Pulses Radial Pulse: normal Abdomen Inspection and Palpation: soft, non distended, no bruit, non tender Neurologic Gait: normal gait Labs: @LABRESULTS@ No results found for: CHOLESTEROL TOTAL , HDL , LDL CALC , LDL DIRECT , TRIGLYCERIDES , TSH , T3 TOTAL , T4 TOTAL , THYROID PEROXIDASE AB , BNP EKG: Echo: 05/02/25 Stress test: Coronary angiogram: @CATH@ Diagnostic Imaging: No images are attached to the encounter. Assessment and Plan: - Persistent atrial fibrillation: His newly diagnosed atrial fibrillation is behaving more like persistent atrial fibrillation. He has been recently started on anticoagulation and so I would wait at least 3 weeks of uninterrupted anticoagulation before I start him on antiarrhythmic drug such as amiodarone. Once he is on an amiodarone for 3 weeks we will bring him for cardioversion to see whether he can maintain sinus rhythm. I have also recommended that he undergo evaluation for sleep apnea and continue to focus on risk factor modification such as a weight loss and exercise. Mook Bonilla MD Cardiac Electrophysiology [facility] [1] History reviewed. No pertinent past medical history. [2] Past Surgical History: Procedure Laterality Date ABLATION OF DYSRHYTHMIC FOCUS HERNIA REPAIR KNEE SURGERY N/A [3] No Known Allergies [4] Current Outpatient Medications on File Prior to Visit Medication Sig Dispense Refill dilTIAZem CD (Cardizem CD) 180 mg 24 hr capsule Take 1 capsule by mouth in the morning. metoprolol succinate XL (Toprol-XL) 100 mg 24 hr tablet Take 1 tablet by mouth in the morning. testosterone cypionate (Depo-Testosterone) 100 mg/mL injection Inject into the shoulder, thigh, or buttocks every 14 (fourteen) days. Eliquis 5 mg tablet Take 5 mg by mouth in the morning and at bedtime. (Patient not taking: Reported on 05/08/2025) No current facility-administered medications on file prior to visit. OFFICE VISIT Observed: 05/08/2025 1:45 PM Status: COMPLETED Source: [facility] [id number] Mayra Rhoades [facility] Provider Department Center 05/08/2025 241-MOOK BONILLA IDANIA Womack Family History Problem Relation Age of Onset Atrial fibrillation Mother Hypertension Mother Atrial fibrillation Father Family Status - Relation Status Age at Mother Alive Father Alive Level of Service:39453 [place] OFFICE/OUTPATIENT NEW MODERATE MDM 45 MINUTES ORDERS ONLY Observed: 05/08/2025 12:00 AM Status: COMPLETED Source: [facility] [id number] Mayra Rhoades [facility] Provider Department Center 05/08/2025 JOSE MEEKS Family History Problem Relation Age of Onset Atrial fibrillation Mother Hypertension Mother Atrial fibrillation Father Family Status - Relation Status Age at Mother Alive Father Alive DRUG SCREEN,URINE Collected: 12/07/2024 9:25 AM Stat us: F Source: [facility] TYPE CODE TESTS RESULT OUT OF RANGE REFERENCE UNITS LAB URAMPS Amphetamine Screen,Urine Negative Negative LAB URBARBS Barbiturate Screen,Urine Negative Negative LAB URBENZS Benzodiazepines Screen,Urine Negative Negative LAB URCOCS Cocaine Screen,Urine Negative Negative LAB UROPIS Opiate Screen,Urine Negative Negative LAB URPCPS Phencyclidine Screen,Urine Negative Negative LAB URTHCS Cannabinoid Screen,Urine Positive High Negative Result Comment: These are un confirmed results and should not be used for legal purposes. Drug Cut-Off Concentration: AMPH 1000 ng/mL VIK 200 ng/mL PAULA 200 ng/mL COCM 300 ng/mL OP 300 ng/mL PCP 25 ng/mL THC 20 ng/mL PERFORMED BY: [place] [address] PATHOLOGIST ELECTRICIAN ELEVATOR MAINTENANCE PEGGY CABAN M.D. Performed By: #### URDS #### [address] ALLERGIES DATE TYPE / CODE NAME / CODE REACTION SEVERITY SOURCE 12/07/2024 Drug Allergy/3784320 02(SNOMED CT) No Known Allergies/[id number] (RXNORM) Unknown [facility] SYSTEMIC/177365 006(SNOMED CT) NO KNOWN ALLERGIES [facility] ENCOUNTERS ADMIT/DISCHARGE ACCOUNT NUMBER ADMITTING ENCOUNTER CLASS LOCATION SOURCE 05/08/2025/05/08/20 25 [id number] [facility] 25 [id number] Iván [facility]ulty [facility] ng[facility] 09/06/2024/09/06/[id number] [facility] ng[facility] PAYERS ENCOUNTER GUARANTOR PAYER SUBSCRIBER SOURCE 05/08/2025 Primary Insurance:MEDICAL MUTUALPolicy Number: [id number] e Date:2025-03-27 [address] [place] [address] [facility] 12/07/2024 [place], [place] [address]Crk: () Primary Insurance:MMOPolicy Number: [id number] e Date:3386-97-36[phone] [place] [address]KA: Mayra Dukes: [id number] Annie [place], [place] [address]Kxi: () [facility] 12/07/2024 Secondary Insurance:Self PayPolicy Number: Effective Date:2024-11-14 [facility] [place], [place] [address]Pfl: () Primary Insurance:[employer] Insurance CoPolicy Number: [id number] Date:2780-13-17[address], [place] [address]FJ: Mayra Maria Del CarmenOB: [id number] Annie [place], [place] [address]Xpn: () [facility] 09/06/2024 Secondary Insurance:MMOPolicy Number: [id number] e Date:1907-40-83FF [id number] [place] [address]CG: Mayra Ernst: [id number] Annie Katherine[place], [place] [address]Qmf: () [facility] 09/06/2024 Tertiary Insurance:Self PayPolicy Number: Effective Date:2024-08-25 [facility]
--- OUTSIDE RECORDS SUMMARY | 2025-06-26 20:10 | XMS_ITS | Encounter Summary ---
Author Organization [facility] Address [address] [place] [address] Care Team Providers Care Car Checker Name Role Phone Unavailable Primary Care Provider Unavailabl e Reason for Visit * Reason Onset Date Comments Med Refill 06/26/2025 Encounter Details Date Type Department Care Team (Late st Contact Info) Description 06/26/2025 Refill [facility] [address] [place] [address] Katy Espino MA Paroxysmal atrial fibrillation (CMS/HCC) (Primary Dx) Social History Tobacco Use Types Packs/Day Years Used Date Smoking Tobacco: Former Cigarettes Smokeless Tobacco: Never Alcohol Use Standard Drinks/Week Comments Never 0 (1 standard drink = 0.6 oz pur e alcohol) Sex and Gender Information Value Date Recorded Sex Assigned at Male 05/08/2025 1:44 PM EDT Legal Sex Male 8:43 AM EDT Gender Identity Male 05/08/2025 1:44 PM EDT Sexual Orientation Heterosexual or Straight 04/27 1:44 PM EDT Travel History Travel Start Travel End [place] 05/25/2025 06/25/2025 documented as of this encounter Plan of Treatment Upcoming Encounters Date Type Department Care Team (Late st Contact Info) Description 07/02/2025 8:30 AM EDT Hospital Encounter [facility] [address] [place] [address] Mook Rose MD [address] [place] [address] Paroxysmal atrial fibrillation (CMS/HCC) 07/02/2025 8:30 AM EDT - 07/02/2025 9:30 AM EDT Surgery [facility] [address] [facility] [place] [address] Mook Rose MD [address] [place] [phone] Cardioversion documented as of this encounter Visit Diagnoses Diagnosis Paroxysmal atrial fibrillation (CMS/HCC)- Primary Atrial fibrillation Paroxysmal atrial fibrillation (CMS/HCC)- Primary Atrial fibrillation Paroxysmal atrial fibrillation (CMS/HCC) Atrial fibrillation documented in this encounter
--- OUTSIDE RECORDS SUMMARY | 2025-06-26 20:10 | XMS_ITS | Clinical Summary ---
Author Organization [facility] Address [address] [place] [address] Care Team Providers Care Drawing Machine Operator Name Role Phone Unavailable Primary Care Provider [...]
--- OUTSIDE RECORDS SUMMARY | 2025-06-26 20:10 | XMS_ITS | Encounter Summary ---
Author Organization [facility] Address [address] [place] [address] Care Team Providers Care Quality Head Name Role Phone Unavailable Primary Care Provider Unavailabl e Reason for Visit * Reason Onset Date Comments Med Refill 06/26/2025 Encounter Details Date Type Department Care Team (Late st Contact Info) Description 06/26/2025 Refill [facility] at [facility] [address] [place] [address] Katy Espino MA Social History Tobacco Use Types Packs/Day Years [...] EDT Travel History Travel Start Travel End [place] 05/25/2025 06/25/2025 documented as of this encounter Miscellaneous Notes * Telephone Encounter - Kirti Wallace - 06/26/2025 1:46 PM EDT Images from the original note were not included. Prior authorization request for Eliquis 5mg Prior authorization processed and submitted to patient's insurance, awaiting determination from insurance in response to medication coverage. Cover My Meds Walker# [id number] Prior Authorization Approved Dates of Approval 05/27/2025 - 06/26/2026 Previous PA was extended until May 2026. documented in this encounter Plan of Treatment Upcoming Encounters Date Type Department Care Team (Late st Contact Info) Description 07/02/2025 8:30 AM EDT Hospital Encounter [facility] [place] [facility] [address] [place] [address] Mook Rose MD [address] [facility] [place] [address] Paroxysmal atrial fibrillation (CMS/HCC) 07/02/2025 8:30 AM EDT - 07/02/2025 9:30 AM EDT Surgery [facility] Heart [facility] [address] [facility] [place] [address] Mook Rose MD [address] [facility] [place] [address] Cardioversion documented as of this encounter Visit Diagnoses Not on filedocumented in this encounter
--- OUTSIDE RECORDS SUMMARY | 2025-06-26 20:10 | XMS_ITS | Clinical Summary ---
Author Organization [facility] Address [address] [place] [address] Care Team Providers Care Health Professional Name Role Phone Unavailable Primary Care Provider Unavailabl e Allergies No known active allergies Medications metoprolol succinate XL (Toprol-XL) 100 mg 24 hr tablet Take 1 tablet by mouth in the morning. 5 Active dilTIAZem CD (Cardizem CD) 180 mg 24 hr capsule Take 1 capsule by mouth in the morning. 5 Active testosterone cypionate (Depo-Testostero ne) 100 mg/mL injection Inject into the shoulder, thigh, or buttocks every 14 (fourteen) days. Active amiodarone (Pacerone) 200 mg tabletIndication s:Paroxysmal atrial fibrillation (CMS/HCC) Take 2 tablets (400 mg) by mouth two times daily for 14 days, THEN 1 tablet (200 mg) once daily as directed. Call office for further refills. 146 tablet 5 08/20/20 25 Active Eliquis 5 mg tabletIndication s:Paroxysmal atrial fibrillation (CMS/HCC) Take 1 tablet (5 mg) by mouth in the morning and at bedtime. 180 tablet 3 5 06/26/20 26 Active Eliquis 5 mg tablet Take 5 mg by mouth in the morning and at bedtime. 06/26/20 25 Discontinu ed(Reorder ) Active Problems Problem Noted Date Diagnosed Date Premature ventricular contractions (PVCs) (VPCs) 05/08/2025 Paroxysmal atrial fibrillation 05/08/2025 COVID-19 10/16/2020 Essential (primary) hypertension 10/16/2020 Calculus of gallbladder with out cholecystitis without obstruction 08/26/2020 Diarrhea 08/26/2020 Obesity, Class I, BMI 30-34.9 03/13/2020 Palpitations 03/13/2020 Status post left inguinal hernia repair, follow- up exam 12/19/2019 Encounter for screening colonoscopy 12/05/2019 Inguinal hernia of left side without obstruction or gangrene 12/05/2019 Varicose veins of bilateral lower extremities with other complications 04/24/2011 Paroxysmal tachycardia, unspecified 10/07/2007 Encounters Date Type Department Care Team Description 06/26/2025 Refill [facility] [address] [facility] [place] [address] Katy Espino MA 06/26/2025 Refill [facility] [address] [facility] [place] [address] Katy Espino MA Paroxysmal atrial fibrillation (CMS/HCC) (Primary Dx) 06/25/2025 Travel 05/09/2025 Orders Only [facility] [address] [facility] [place] [address] Marisela Boggs MD 05/08/2025 1:45 PM EDT Office Visit [facility] [address] [facility] [place] [address] Mook Rose MD Paroxysmal atrial fibrillation (CMS/HCC) (Primary Dx) 05/08/2025 Orders Only [facility] [address] [facility] [place] [address] Katy Espino MA Paroxysmal atrial fibrillation (CMS/HCC) (Primary Dx) from Last 3 Months Family History Medical History Relation Name Comments Atrial fibrillation Father Atrial fibrillation Mother Hypertension Mother Relation Name Status Comments Father Alive Mother Alive Social History Tobacco Use Types Packs/Day Years Used Date Smoking Tobacco: Former Cigarettes Smokeless Tobacco: Never Tobacco Cessation:Counseling Given: Not Answered Alcohol Use Standard Drinks/Week Comments Never 0 (1 standard drink = 0.6 oz pur e alcohol) Sex and Gender Information Value Date Recorded Sex Assigned at Male 05/08/2025 1:44 PM EDT Legal Sex Male 8:43 AM EDT Gender Identity Male 05/08/2025 1:44 PM EDT Sexual Orientation Heterosexual or Straight 04/27 1:44 PM EDT Travel History Travel Start Travel End [place] 05/25/2025 06/25/2025 Last Filed Vital Signs Vital Sign Reading Time Taken Comments Blood Pressure 144/78 05/08/2025 1:56 PM EDT Pulse 107 05/08/2025 1:56 PM EDT Temperature - - Respiratory Rate - - Oxygen Saturation 95% 05/08/2025 1:56 PM EDT Inhaled Oxygen Concentration - - Weight 112 kg (246 lb) 05/08/2025 1:56 PM EDT Height 182.9 cm (6') 05/08/2025 1:56 PM EDT Body Mass Index 33.36 05/08/2025 1:56 PM EDT Plan of Treatment Upcoming Encounters Date Type Department Care Team (Late st Contact Info) Description 07/02/2025 8:30 AM EDT Hospital Encounter [facility] [place] [facility] [address] [place] [phone] Mook Rose MD [address] [place] [phone] Paroxysmal atrial fibrillation (CMS/HCC) 07/02/2025 8:30 AM EDT - 07/02/2025 9:30 AM EDT Surgery [facility] [place] [facility] [address] [place] [phone] Mook Rose MD [address] [place] [address] Cardioversion Health Maintenance Due Date Last Done Comments CT Colonography 1970 Colonoscopy 1970 Colorectal Cancer Screening 1970 FIT-DNA 1970 FIT 1970 FOBT 1970 Sigmoidoscopy 1972 Depression Screening 1984 Hepatitis B Vaccines (1 of 3 - 19+ 3-dose series) 02/13/1991 Zoster Vaccines (1 of 2) 02/13/2022 COVID-19 Vaccine ( - 2023-2 5 season) 2025 Influenza Vaccine (#1) 2025 Adult Tetanus 02/02/2035 02/02/2025 HIB Vaccines Aged Out No longer eligi ble based on patient's age to complete this topic HPV Vaccines Aged Out No longer eligi ble based on patient's age to complete this topic IPV Vaccines Aged Out No longer eligi ble based on patient's age to complete this topic Meningococcal B Vaccine Aged Out No l onger eligible based on patient's age to complete this topic Meningococcal Vaccine Aged Out No gutierrez kendy eligible based on patient's age to complete this topic Pneumococcal Vaccine: Pediat rics (0 to 5 Years) and At-Risk Patients (6 to 64 Years) Aged Out No longer eligi ble based on patient's age to complete this topic Rotavirus Vaccines Aged Out No longer eligible based on patient's age to complete this topic Procedures Procedure Name Priority Date/Time Associated Diagnosis Comments ECG 12-LEAD Routine 05/08/2025 8:56 AM EDT from Last 3 Months Results * ECG 12 lead (05/08/2025 8:56 AM EDT) us Historical Provider ECG ORDERABLES Final Res ult from Last 3 Months Insurance [employer]
--- OUTSIDE RECORDS SUMMARY | 2025-06-26 20:10 | XMS_ITS | Patient Health Record ---
Author Organization [facility] Address [address] [place] [address] Care Team Providers Care Pharmacist'S Aide Name Role Phone STUART CARVALHO DO Primary Care Provider Manuel Gleason Unavailable [phone] Results Component Value Reference Range Notes PEH Knee right, 4v -[id number] Reviewed date:08/10/2024 09:32:09 AM Interpretation: Performing Lab: Notes/Report: MRI RIGHT KNEE W/O CONTRAST Reviewed date:09/29/2024 10:25:08 AM Interpretation: Performing Lab: Notes/Report: Reason For Referral Reason [employer] ........... MRI RIGHT KNEE Diagnosis 1 Pain, joint, knee, r ight (M25.561) Referral Organization [facility] Referring Provider First Name Manuel Referring Provider Last Name Joyce Referring Provider Speciality Orthopedic Surgery Referred Organization 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) Active confirmed Encounters Encounter Location Date Provider Diagnosis [facility] [address] [place] [address] 08/17/2024 Manuel Joyce Pain, joint, knee, right M25.561 [facility] [address] [place] [address] 08/08/2024 Manuel Joyce Pain, joint, knee, right M25.561 and Chondromalacia, right knee M94.261 [facility] [address] [place] [address] 08/22/2024 Manuel Joyce Chondromalacia, righ t knee [...] Date Coverage End Date [employer] [address] [place] [address] [id number] [employer] Self - patient is the insured [employer] [address] [place] [address] [id number] [employer] Spouse - patient is the spouse of the insured
--- OUTSIDE RECORDS SUMMARY | 2025-06-26 20:10 | XMS_ITS | Encounter Summary ---
Author Organization [facility] Address [address] [place] [address] Care Team Providers Care Metal Box Maker Name Role Phone Unavailable Primary Care Provider Unavailabl e Encounter Details Date Type Department Care Team (Latest Contact Info) Description 06/25/2025 Travel Social History Tobacco Use Types Packs/Day Years [...] Description 07/02/2025 8:30 AM EDT Hospital Encounter [facility] [address] [place] [address] Mook Rose MD [address] [place] [address] Paroxysmal atrial fibrillation (CMS/HCC) 07/02/2025 8:30 AM EDT - 07/02/2025 9:30 AM EDT Surgery [facility] [address] [place] [address] Mook Rose MD [address] [facility] [place] [address] Cardioversion documented as of this encounter Visit Diagnoses Not on filedocumented in this encounter
== END 2025-06-26 20:05 | disposition home or self-care (01) ==
PROVIDERS: PCP Internal Medicine; Visit Provider Internal Medicine
DX: G47.33 Obstructive sleep apnea (adult) (pediatric) (principal)
CPT/HCPCS: 95811